=== PATIENT | male | born 1950 | race Caucasian/White ===

== ENCOUNTER 2018-06-24 10:04 | Inpatient (IN) | payer MEDICARE, OTHER | END 2018-06-28 15:32 | disposition home or self-care (01) | LOC: ER 10:04 → SUR 3N 06-26 12:00 → ED HOLD 12:40 → SUR 3N 22:10 | DX: J96.01 Acute respiratory failure with hypoxia (principal); I50.31 Acute diastolic (congestive) heart failure; J44.1 Chronic obstructive pulmonary disease with (acute) exacerbation; N17.9 Acute kidney failure, unspecified; J96.02 Acute respiratory failure with hypercapnia; G89.4 Chronic pain syndrome; E11.21 Type 2 diabetes mellitus with diabetic nephropathy; E11.42 Type 2 diabetes mellitus with diabetic polyneuropathy; E09.65 Drug or chemical induced diabetes mellitus with hyperglycemia ==

== ENCOUNTER 2018-12-30 11:05 | Day surgery (SDC) | payer OTHER ==
[2018-12-30] VITALS (12 sets, daily range): BP systolic 123–156; BP diastolic 61–84
[~2018-12-30] VITALS: Ht 182.9 cm; Wt 108.3 kg
[~2018-12-30 11:05] MED LIST: AMIT-1 PO; ASPI-1265 PO; CHOL10008 PO; DABI150C PO; FERR325T32 PO; FURO40TA4 PO; GABA-532 PO; LAMO150T6 PO; LOSA25TA41 PO; MAGN400T28 PO; OMEG1CAP2 PO; OMEP20TA5 PO; POTA10TA15 PO; PRAV20TA PO; ROPI0.5T PO; VERA120T2 PO; VITA-268 PO
[2018-12-30] MEDS ORDERED: FLEC100T2 PO (11:34)
[2018-12-30] MEDS ORDERED: ATOR20TA PO (11:34)
[2018-12-30] MEDS ORDERED: VERA120C2 PO (11:34)
[2018-12-30] MEDS ORDERED: METF-438 PO (11:34)
[2018-12-30] MEDS ORDERED: normal saline 1,000 ML IV SCH (11:45)
[2018-12-30] MEDS ORDERED: diphenhydrAMINE 25mg capsule PO PRN (11:45)
[2018-12-30 11:59] LABS: BASOPHILS # (AUTO) 0.1 X10'3 (0-0.2); BASOPHILS % (AUTO) 0.6 % (0-1); EOSINOPHILS # (AUTO) 0.3 X10'3 (0-0.9); EOSINOPHILS % (AUTO) 2.9 % (0-6); HEMATOCRIT 43.1 % (42.0-52.0); HEMOGLOBIN 14.3 g/dl (14.0-17.9); LYMPHOCYTES # (AUTO) 1.4 X10'3 (1.1-4.8); LYMPHOCYTES % (AUTO) 15.8 % (21-51); MEAN CORPUSCULAR HEMOGLOBIN 29.6 PG (27.0-31.0); MEAN CORPUSCULAR HGB CONC 33.1 g/dL (33.0-36.5); MEAN CORPUSCULAR VOLUME 89.6 FL (78-98); MEAN PLATELET VOLUME 8.9 FL (7.4-10.4); MONOCYTES # (AUTO) 0.6 X10'3 (0-0.9); MONOCYTES % (AUTO) 6.1 % (2-12); NEUTROPHILS # (AUTO) 6.8 X10'3 (1.8-7.7); NEUTROPHILS % (AUTO) 74.6 % (42-75); PLATELET COUNT 238 X10'3 (140-440); RED BLOOD COUNT 4.81 X10'6 (4.70-6.10); RED CELL DISTRIBUTION WIDTH 14.5 % (11.5-14.5); WHITE BLOOD COUNT 9.1 X10'3 (4.5-11.0)
[2018-12-30 12:12] LABS: ALBUMIN 3.9 G/DL (3.4-5.0); ANION GAP 6 (8-16); BLOOD UREA NITROGEN 20 MG/DL (7-18); BUN/CREATININE RATIO 19.6 (5.4-32.0); CALCIUM 9.5 MG/DL (8.5-10.1); CHLORIDE 104 MMOL/L (99-107); CREATININE 1.02 MG/DL (0.60-1.10); GLUCOSE 90 MG/DL (70-104); MAGNESIUM 1.8 MG/DL (1.5-2.4); POTASSIUM 4.2 MMOL/L (3.5-5.1); SODIUM 142 MMOL/L (135-145); eGFR 73 ML/MIN
[2018-12-30] MEDS ORDERED: MIDAZolam 5mg/ml 2ml vial IV ONE (12:20)
[2018-12-30] MEDS ORDERED: fentaNYL/PF 50MCG/1 ML 2ML syringe IV ONE (12:20)
== END 2018-12-30 17:25 | disposition home or self-care (01) ==
LOC: SSTAY O 11:05
PROVIDERS: ATTEND Internal Medicine Cardiovascular Disease
DX: I48.91 Unspecified atrial fibrillation (principal); I11.0 Hypertensive heart disease with heart failure; I50.9 Heart failure, unspecified; E11.9 Type 2 diabetes mellitus without complications; E78.00 Pure hypercholesterolemia, unspecified; Z79.01 Long term (current) use of anticoagulants; Z79.82 Long term (current) use of aspirin; Z79.4 Long term (current) use of insulin; Z79.899 Other long term (current) drug therapy; Z87.891 Personal history of nicotine dependence; Z88.8 Allergy status to other drugs, medicaments and biological substances; Z98.890 Other specified postprocedural states
CPT/HCPCS: 36415; 80048; 83735; 85025; 85610; 92960; 93005; 94760; J2250; J3010; J7030

== ENCOUNTER 2019-01-31 07:52 | Day surgery (SDC) | payer OTHER ==
[2019-01-31] VITALS (14 sets, daily range): BP systolic 92–138; BP diastolic 34–65
[~2019-01-31] VITALS: Ht 182.9 cm; Wt 109.5 kg
[~2019-01-31 07:52] MED LIST changes: -ASPI-1265 PO; +ATOR20TA PO; +FLEC100T2 PO; -LAMO150T6 PO; +METF-438 PO; -PRAV20TA PO; +VERA120C2 PO
[2019-01-31] MEDS ORDERED: atropine 0.1mg/ml 10ml syringe ONE (08:00)
[2019-01-31] MEDS ORDERED: MIDAZolam 5mg/ml 2ml vial IV ONE (08:15)
[2019-01-31] MEDS ORDERED: fentaNYL/PF 50MCG/1 ML 2ML syringe IV ONE (08:15)
[2019-01-31] MEDS ORDERED: normal saline 1000ml 1,000 ML IV SCH (08:15)
[2019-01-31] MEDS ORDERED: INSU100C4 SQ (09:24)
[2019-01-31] MEDS ORDERED: ACET-2615 PO (09:24)
[2019-01-31] MEDS ORDERED: DOCU100C59 PO (09:24)
[2019-01-31] MEDS ORDERED: INSU100V9 SQ (09:24)
[2019-01-31] MEDS ORDERED: DICL100G15 TOP (09:24)
[2019-01-31] MEDS ORDERED: TIOT4MIS3 IH (09:24)
[2019-01-31] MEDS ORDERED: NITR0.4T48 SL (09:24)
[2019-01-31] MEDS ORDERED: atropine 0.1mg/ml 10ml syringe IV ONE (09:45)
--- NOTE | 2019-01-31 09:50 | NUR ---
Heart Rate down to 29 beats per minute. Atropine 0.6m iv given from the crash cart as ordered by Dr. Robison. Addendum: 01/31/19 at 1456 by Max Gregory RN Amended: Links added.
--- NOTE | 2019-01-31 09:53 | NUR ---
Atropine 0.4mg iv given as ordered by Dr. Robison. Addendum: 01/31/19 at 1456 by Max Gregory RN Amended: Links added.
[2019-01-31 11:56] LABS: BASOPHILS % (AUTO) 0.3 % (0-1); EOSINOPHILS # (AUTO) 0.2 X10'3 (0-0.9); EOSINOPHILS % (AUTO) 2.2 % (0-6); HEMOGLOBIN 12.7 g/dl (14.0-17.9); LYMPHOCYTES # (AUTO) 1.3 X10'3 (1.1-4.8); LYMPHOCYTES % (AUTO) 15.6 % (21-51); MEAN CORPUSCULAR HEMOGLOBIN 29.5 PG (27.0-31.0); MEAN CORPUSCULAR HGB CONC 33.3 g/dL (33.0-36.5); MEAN CORPUSCULAR VOLUME 88.6 FL (78-98); MEAN PLATELET VOLUME 9.5 FL (7.4-10.4); MONOCYTES # (AUTO) 0.4 X10'3 (0-0.9); MONOCYTES % (AUTO) 5.2 % (2-12); NEUTROPHILS # (AUTO) 6.3 X10'3 (1.8-7.7); NEUTROPHILS % (AUTO) 76.7 % (42-75); PLATELET COUNT 196 X10'3 (140-440); RED BLOOD COUNT 4.29 X10'6 (4.70-6.10); WHITE BLOOD COUNT 8.2 X10'3 (4.5-11.0)
[2019-01-31 12:02] LABS: ALBUMIN 3.5 G/DL (3.4-5.0); ANION GAP 7 (8-16); BLOOD UREA NITROGEN 22 MG/DL (7-18); BUN/CREATININE RATIO 20.2 (5.4-32.0); CALCIUM 8.5 MG/DL (8.5-10.1); CHLORIDE 106 MMOL/L (99-107); CREATININE 1.09 MG/DL (0.60-1.10); GLUCOSE 64 MG/DL (70-104); MAGNESIUM 1.6 MG/DL (1.5-2.4); POTASSIUM 4.2 MMOL/L (3.5-5.1); SODIUM 142 MMOL/L (135-145); TOTAL CARBON DIOXIDE 29.2 MMOL/L (24-32); eGFR 67 ML/MIN
== END 2019-01-31 12:07 | disposition home or self-care (01) ==
LOC: SSTAY O 07:52
PROVIDERS: ATTEND Internal Medicine Cardiovascular Disease
DX: I48.19 Other persistent atrial fibrillation (principal); I11.0 Hypertensive heart disease with heart failure; I50.9 Heart failure, unspecified; E11.9 Type 2 diabetes mellitus without complications; E78.00 Pure hypercholesterolemia, unspecified; Z79.82 Long term (current) use of aspirin; Z79.4 Long term (current) use of insulin; Z79.899 Other long term (current) drug therapy; Z79.01 Long term (current) use of anticoagulants; Z87.891 Personal history of nicotine dependence; Z88.8 Allergy status to other drugs, medicaments and biological substances
CPT/HCPCS: 36415; 80048; 83735; 85025; 85610; 92960; J0461; J2250; J3010; J7030; 93005

== ENCOUNTER 2019-11-07 12:11 | Emergency (ER) | payer OTHER, MEDICARE ==
[~2019-11-07] VITALS: Ht 182.9 cm; Wt 105.0 kg
[~2019-11-07 12:11] MED LIST changes: +ACET-2615 PO; +DICL100G15 TOP; +DOCU100C59 PO; +INSU100C4 SQ; +INSU100V9 SQ; +NITR0.4T48 SL; +TIOT4MIS3 IH; -VERA120C2 PO
--- NOTE | 2019-11-07 13:22 | NUR ---
awaiting ed provider.
[2019-11-07] MEDS ORDERED: HYDROcodone/acetaminophen 10/325mg tab PO ONE (14:45)
--- NOTE | 2019-11-07 15:46 | NUR ---
called wound care clinic per MD qand there was noone avaliable to come evaluate pt. they said to give pt there number and they can get him in on sunday.
[2019-11-07] MEDS ORDERED: silver sulfadiazine cream 400gm jar TP SCH (16:10)
[2019-11-07 16:22] VITALS: BP 172/66
[2019-11-07] MEDS ORDERED: HYDR-4353 PO (16:51)
[2019-11-07] MEDS ORDERED: CEPH250T PO (16:51)
[2019-11-07] MEDS ORDERED: cephalexin 250mg capsule PO ONE (16:55)
== END 2019-11-07 17:07 | disposition home or self-care (01) ==
LOC: ER 12:11
DX: T25.222A Burn of second degree of left foot, initial encounter (principal); T25.221A Burn of second degree of right foot, initial encounter; L03.116 Cellulitis of left lower limb; L03.115 Cellulitis of right lower limb; I48.91 Unspecified atrial fibrillation; I50.9 Heart failure, unspecified; I11.0 Hypertensive heart disease with heart failure; J44.9 Chronic obstructive pulmonary disease, unspecified; Z88.8 Allergy status to other drugs, medicaments and biological substances; Z79.4 Long term (current) use of insulin; Z79.899 Other long term (current) drug therapy; X58.XXXA Exposure to other specified factors, initial encounter; Y93.89 Activity, other specified; Y92.89 Other specified places as the place of occurrence of the external cause; Y99.8 Other external cause status
CPT/HCPCS: 16020; 99285

== ENCOUNTER 2019-11-10 10:40 | Outpatient (CLI) | payer MEDICARE, OTHER ==
[~2019-11-10 10:40] MED LIST changes: +CEPH250T PO; +HYDR-4353 PO
[2019-11-10] MEDS ORDERED: silver sulfadiazine cream 50gm TP ONE (12:51)
== END 2019-11-10 13:06 | disposition home or self-care (01) ==
LOC: WOUND CARE 10:40 → EDSTATUS 10:40 → WOUND CARE 13:06
PROVIDERS: ATTEND Nurse Practitioner Family
DX: E11.621 Type 2 diabetes mellitus with foot ulcer (principal); L97.512 Non-pressure chronic ulcer of other part of right foot with fat layer exposed; L97.522 Non-pressure chronic ulcer of other part of left foot with fat layer exposed; T25.221A Burn of second degree of right foot, initial encounter; T25.222A Burn of second degree of left foot, initial encounter; J44.9 Chronic obstructive pulmonary disease, unspecified; E11.40 Type 2 diabetes mellitus with diabetic neuropathy, unspecified; E11.65 Type 2 diabetes mellitus with hyperglycemia; I11.0 Hypertensive heart disease with heart failure; I50.9 Heart failure, unspecified; I25.10 Atherosclerotic heart disease of native coronary artery without angina pectoris; E78.5 Hyperlipidemia, unspecified; I48.91 Unspecified atrial fibrillation; Z96.698 Presence of other orthopedic joint implants; Z79.899 Other long term (current) drug therapy; Z79.4 Long term (current) use of insulin; Z87.891 Personal history of nicotine dependence; X08.8XXA Exposure to other specified smoke, fire and flames, initial encounter; Y93.89 Activity, other specified; Y92.89 Other specified places as the place of occurrence of the external cause; Y99.8 Other external cause status
CPT/HCPCS: 36416; 82948; G0463

== ENCOUNTER 2024-11-24 14:10 | Inpatient (IN) | payer OTHER, MEDICARE ==
[~2024-11-24] VITALS: Ht 182.9 cm; Wt 96.2 kg
[~2024-11-24 14:10] MED LIST changes: -CEPH250T PO; -HYDR-4353 PO; -MAGN400T28 PO; +MAGN400T56 PO; +OMEP20TA43 PO; -OMEP20TA5 PO
--- NOTE | 2024-11-24 14:37 | ELECTROCARDIOGRAPH REPORT ---
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 Parmjit Peña Measurements Intervals [place] Rate: 41 P: 0 MO: 0 QRS: 62 QRSD: 157 T: 34 QT: 504 QTc: 417 Interpretive Statements Junctional rhythm Right bundle branch block Baseline wander in lead(s) II,aVR,aVF Electronically Signed On 12-03-2024 18:47:[address] Parmjit Peña Please click the below link to view image of tracing.
--- NOTE | 2024-11-24 14:47 | RADIOLOGY REPORT ---
CHEST RADIOGRAPH Indication: CP Technique: Single frontal view of the chest was obtained Comparison: None FINDINGS: Lines and Tubes: None Lungs: No focal consolidation. Pleura: No effusion. No pneumothorax. Cardiomediastinal contours: Unremarkable Bones: Nondisplaced right lateral rib fracture IMPRESSION: No acute cardiopulmonary disease. No pneumothorax. Nondisplaced right lateral rib fracture involving right lateral ribs number 7
[2024-11-24 14:51] LABS: MEAN PLATELET VOLUME 8.6 FL (7.4-10.4); RED CELL DISTRIBUTION WIDTH 15.9 % (11.5-14.5)
[2024-11-24 15:14] LABS: BANDS% (MANUAL) 3.0 % (0-10); EOSINOPHILS % (MANUAL) 2.0 % (0-6); METAMYLEOCYTES% (MANUAL) 3.0 % (0-0)
[2024-11-24 15:15] LABS: LYMPHOCYTES % (MANUAL) 8.0 % (21-51); MONOCYTES % (MANUAL) 4.0 % (2-12); NEUTROPHILS % (MANUAL) 80.0 % (42-75); PLATELET ESTIMATE NORMAL
[2024-11-24 15:19] LABS: CREATININE 1.67 MG/DL (0.60-1.10); PRO BRAIN NATRIURETIC PEPTIDE 929 PG/ML (0-125); TOTAL CARBON DIOXIDE 23.1 MMOL/L (24-32); eCRCL 43 ML/MIN; eGFR 40 ML/MIN
--- NOTE | 2024-11-24 16:44 | Physician Documentation ---
History of Present Illness General Chief Complaint: Shortness of Breath Stated Complaint: LOW HEART RATE/DIZZINESS Time Seen by MD: 16:26 Primary Medical Doctor: dc History of Present Illness Initial Comments The patient is a 74-year-old man with a history of prior alcohol abuse (he reports that his last drink was 3-4 years ago), atrial fibrillation (he is not on any blood thinners), chronic bradycardia (which has been asymptomatic until just recently), type 2 diabetes, hypertension and low back pain who has been generally weak, short of breath and orthostatic since , four days ago. He went to the [place] [facility] this morning for these symptoms and they referred him here with worsening bradycardia. Medication Reconciliation Allergies: Coded Allergies: lorazepam (Unverified Allergy, Unknown, 11/07/19) Scheduled Acetaminophen (Tylenol Extra Strength), 500 MG PO QID, (Reported) Amitriptyline Hcl (Amitriptyline Hcl), 12.5 MG PO HS, (Reported) Atorvastatin Calcium* (Lipitor*), 1 TABLET PO HS, (Reported) Cholecalciferol (Vitamin D3), 1,000 UNIT PO DAILY, (Reported) Dabigatran (PRADAXA capsule), 1 CAP PO BID, (Reported) Diclofenac Sodium (Voltaren), 2 GM TOP Q6H, (Reported) Docusate Sodium (Col-Rite), 1 CAPSULE PO DAILY, (Reported) Ferrous Sulfate (Ferrous Sulfate), 1 TAB PO DAILY, (Reported) Flecainide Acetate (Flecainide Acetate), 1 TAB PO Q12H, (Reported) Furosemide (Furosemide), 1 TAB PO DAILY, (Reported) Gabapentin (Gabapentin), 1 CAP PO TID, (Reported) Insulin Aspart (Novolog), 100 UNIT SQ CC, (Reported) Insulin Glargine,Hum.rec.anlog (Lantus), SQ BID, (Reported) Losartan Potassium (Losartan Potassium), 1 TAB PO BID, (Reported) Magnesium Oxide (Magnesium Oxide), 1 TAB PO Q12H, (Reported) Metformin HCl (Metformin HCl), 1 TAB PO Q12H, (Reported) [place]-3 Fatty Acids/Fish Oil (Fish Oil 1,000 mg Capsule), 1 CAP PO DAILY, (Reported) Omeprazole (Omeprazole), 40 MG PO DAILY, (Reported) Potassium Chloride (Potassium Chloride), 1 TAB PO DAILY, (Reported) Ropinirole Hcl (Requip), 1 TAB PO HS, (Reported) Tiotropium Br/Olodaterol HCl (Stiolto Respimat Inhal [place]), 2 PUFFS IH DAILY, (Reported) Verapamil Hcl SR* (Calan SR*), 1 TAB PO DAILY, (Reported) Vitamin B Complex (B Complex), 1 EACH PO DAILY, (Reported) Scheduled PRN Nitroglycerin (Nitroglycerin), 0.4 MG SL PRN PRN for chest pain, (Reported) Past Medical History Past Medical History: Atrial Fibrillation, Congestive Heart Failure, Hype rtension, COPD Past Surgical History: noncontributory Alcohol Use: None Drug Use: none Lives with: Spouse Lives In: Home Occupation: retired Review of Systems ROS Constitutional: Denies chills, fatigue, fever, weight gain or weight loss. HEENT: Denies hearing loss, sinus pressure or visual changes. Respiratory: Dyspnea on exertion. Cardiovascular: Worsening pedal edema and bradycardia. Gastrointestinal: Denies abdominal pain, blood in stool, constipation, agustín rrhea, heartburn, loss of appetite, nausea or vomiting. Genitourinary: Denies painful urination (dysuria), excessive amount of urine (polyuria) or urinary frequency. Metabolic/Endocrine: Denies cold intolerance, heat intolerance, excessive thirst (polydipsia) or excessive hunger (polyphagia). Neurological: Denies dizziness, extremity numbness, extremity weakness, headaches, seizures or tremors. Psychiatric: Denies anxiety or depression. Integumentary: Denies breast discharge, breast lump, hives, mole change(s), rash or skin lesion. Musculoskeletal: Denies back pain, joint pain, joint swelling or neck pain. Hematologic: Denies easily bleeding, easily bruises, lymphedema or issues with blood clots. Immunologic: Denies food allergies or seasonal allergies. Physical Exam Physical Exam Vital Signs: Temperature: 98.2, Source: Temporal, Heart Rate: 42, Respiratory Rate: 12, BP: 135/61, Pulse Oximetry: 98, Weight: 94.000 Oxygen Flow Rate: 0 Physical Exam Physical Exam Vitals and nursing note reviewed. Constitutional: General: Patient is awake, alert, oriented x 4 in no acute distress and well appearing. Speech is clear and lucid. Appearance: Normal appearance. Patient is not ill-appearing, toxic-appearing or diaphoretic. HENT: Head: Normocephalic and atraumatic. Mouth/Throat: Mouth: Mucous membranes are moist. Pharynx: Oropharynx is clear. Eyes: General: No scleral icterus. Extraocular Movements: Extraocular movements intact. Pupils: Pupils are equal, round, and reactive to light. Neck: Supple, no Kernig or Brudzinski sign. Cardiovascular: Rate and Rhythm: Bradycardic and regular rhythm. Heart sounds: No murmur heard. Pulmonary: Effort: No respiratory distress. Breath sounds: No wheezing, rhonchi or rales. Abdominal: General: There is no distension. Palpations: There is no fluid wave, hepatomegaly or mass. Tenderness: There is no abdominal tenderness. There is no guarding. Musculoskeletal: General: No swelling or deformity. Skin: Coloration: Skin is not jaundiced. Findings: No erythema or rash. Neurological: Mental Status: Patient is alert. Progress Results/Orders Results/Orders Orders - CORI ARAGON MD Chest,Single View (11/24/24 14:30) Monitor (11/24/24 14:30) Saline Lock (11/24/24 14:30) Oxygen (11/24/24 14:30) Hs Troponin I W Calculations (11/24/24 16:30) Hs Troponin I W Calculations (11/24/24 17:30) Page Hospitalist (11/24/24 16:58) Completed Orders - CORI ARAGON MD Chest,Single View (11/24/24 14:30) Cbc/Diff (11/24/24 14:30) BMP (11/24/24 14:30) PBNP (11/24/24 14:30) Electrocardiogram (11/24/24 14:30) Hs Troponin I W Calculations (11/24/24 14:30) Man Diff (11/24/24 14:41) Vital Signs 11/24/24 14:31 Temp 98.2 Pulse 42 Resp 12 B/P (MAP) 135/61 Pulse Ox 98 O2 Flow Rate 0 Laboratory Tests Test 11/24/24 14:41 11/24/24 16:40 White Blood Count 9.7 Red Blood Count 3.87 L Hemoglobin 11.2 L Hematocrit 33.0 L Mean Corpuscular Volume 85.3 Mean Corpuscular Hemoglobin 28.9 Mean Corpuscular Hemoglobin Concent 33.9 Red Cell Distribution Width 15.9 H Platelet Count 226 Mean Platelet Volume 8.6 Neutrophils (%) (Auto) 78.3 H Lymphocytes (%) (Auto) 12.6 L Monocytes (%) (Auto) 6.8 Eosinophils (%) (Auto) 1.9 Basophils (%) (Auto) 0.4 Neutrophils # (Auto) 7.6 Lymphocytes # (Auto) 1.2 Monocytes # (Auto) 0.7 Eosinophils # (Auto) 0.2 Basophils # (Auto) 0.0 CBC Comment Differential Total Cells Counted 100 Neutrophils % (Manual) 80.0 H Band Neutrophils % 3.0 Lymphocytes % (Manual) 8.0 L Monocytes % (Manual) 4.0 Eosinophils % (Manual) 2.0 Metamyelocytes % 3.0 H Platelet Estimate Normal Red Blood Cell Morphology Normal Basophilic Stippling Sodium Level 137 Potassium Level 4.4 Chloride Level 101 Carbon Dioxide Level 23.1 L Anion Gap 13 Blood Urea Nitrogen 76 H Creatinine 1.67 H Estimated GFR/1.73 m2 40 BUN/Creatinine Ratio 45.5 H Glucose Level 149 H Calcium Level 8.9 Troponin I High Sensitivity 77 *H Pro-B-Type Natriuretic Peptide 929 H Albumin 3.6 Chemistry Comments Medical Decision Making Findings EKG medically necessary in the evaluation of bradycardia/shortness of breath and interpreted by me at the time of patient evaluation. Rhythm is junctional rhythm with a rate of 41, right bundle branch block. Impression: Abnormal EKG. The patient's troponin is 77 and he is bradycardic. He is asymptomatic on the gurney but become short of breath with even mild exertion. His symptoms may be exacerbated by his taking ropinirole for restless legs syndrome. He will need to be admitted and evaluated for pacemaker. Departure Disposition: ADMITTED INPATIENT Admitted to Inpatient Unit: to hospitalist Impression: Primary Impression: Symptomatic bradycardia Condition: Stable Referrals: NO PRIMARY CARE PROVIDER (PCP) Signature Scribe Signature: . Attestation: CORI CARRILLO MD Nov 24, 2024 16:44
[2024-11-24] MEDS: PERFLUTREN PROTEIN-A MICROSPHR (Optison) 0.22 MG/ML 3ML VIAL IV ONE (19:45)
[2024-11-24] MEDS ORDERED: magnesium Cl slow-release 64mg tablet PO PRN (19:45)
[2024-11-24] MEDS ORDERED: magnesium sulf-water 4G/100mL 100 ML IV PRN (19:45)
[2024-11-24] MEDS ORDERED: magnesium sulf-water 2g/50mL 50 ML IV PRN (19:45)
[2024-11-24] MEDS ORDERED: ondansetron/PF 4mg/2ml inj IV PRN (19:45)
[2024-11-24] MEDS ORDERED: magnesium hydroxide 30ml (MOM) UD suspension PO PRN (19:45)
[2024-11-24] MEDS ORDERED: potassium Cl 40MEQ/1/2NS 520ml 520 ML IV PRN (19:45)
[2024-11-24] MEDS ORDERED: potassium Cl 20 mEq SR tablet PO PRN ×2 (19:45)
[2024-11-24] MEDS ORDERED: mag hydrox/Alum hydrox/simeth 30ml oral suspension PO PRN (19:45)
--- NOTE | 2024-11-24 19:51 | HISTORY AND PHYSICAL-Residence ---
History & Physical Providers to CC Resident Creating Document: PEDRO LUIS RUFFIN, MELL ~ History of Present Illness Primary Medical Doctor: wy Reason for Admit\Complaint: Symptomatic bradycardia History of Present Illness A 74-year-old with a past medical history notable for chronic atrial fibrillation with longstanding bradycardia, hypertension, COPD, type 2 diabetes mellitus, obstructive/complex sleep apnea, and alcohol use disorder who presents with progressive dyspnea and new symptomatic bradycardia. The patient reports progressive shortness of breath, most pronounced with ambulation, developing over days to weeks and felt to be worse over the past 12 days. He also notes weight gain of approximately 34 pounds over the past week, with the majority occurring in the last 12 days. In addition, he describes increasing lightheadedness and dizziness without loss of consciousness. He denies syncope, chest pain, palpitations, diaphoresis, syncope, focal weakness, visual changes, nausea, vomiting, fever, or infectious symptoms. He reports he is on a water pill at home. Of note, his baseline resting heart rate historically averaged in the 50s with occasional dips into the high 30s40s and he was previously evaluated for possible pacemaker placement but was not symptomatic at that time. Over the last 24 hours in clinic his heart rate was persistently in the mid-30s and he became symptomatic with dizziness and decreased exercise tolerance. In clinic on 11/24/2024 at 10:22, vital signs were notable for pulse 38 bpm, BP 139/64 mmHg, RR 16, T 97.9F, SpO2 94% on room air. Objective testing and labs obtained in clinic show an EKG with junctional rhythm and right bundle branch block, ventricular rate ~41 bpm with RR interval 1463 ms. Laboratory evaluation demonstrated an elevated BNP, and a mildly elevated high-sensitivity troponin I (53, per lab report). Serum magnesium 2.6 mg/dL. Given symptomatic bradycardia, the patient received atropine 0.5 mg in clinic and IV furosemide 40 mg for concern for volume overload/heart failure. Because his bradycardia became symptomatic and his EKG and labs were concerning, EMS was called and he was transferred to [facility] today. Allergies: Coded Allergies: lorazepam (Unverified Allergy, Unknown, 11/07/19) Home Medications Home Medications Active Reported Voltaren (Diclofenac Sodium) 100 Gm Gel..gram. 2 Gm TOP Q6H Nitroglycerin 0.4 Mg Tab.subl 0.4 Mg SL PRN PRN Lantus (Insulin Glargine,Hum.rec.anlog) 100 Unit/1 Ml Vial SQ BID Novolog (Insulin Aspart) 100 Unit/1 Ml Cartridge 100 Unit SQ CC Tylenol Extra Strength (Acetaminophen) 500 Mg Tablet 500 Mg PO QID Stiolto Respimat Inhal [place] (Tiotropium Br/Olodaterol HCl) 4 Gm Mist.inhal 2 Puffs IH DAILY Col-Rite (Docusate Sodium) 100 Mg Capsule 1 Capsule PO DAILY Lipitor* (Atorvastatin Calcium) 20 Mg Tablet 1 Tablet PO HS Flecainide Acetate 100 Mg Tablet 1 Tab PO Q12H 30 Days Metformin HCl 1,000 Mg Tablet 1 Tab PO Q12H 30 Days Losartan Potassium 25 Mg Tablet 1 Tab PO BID 30 Days Requip (Ropinirole Hcl) 0.5 Mg Tablet 1 Tab PO HS 30 Days Omeprazole 20 Mg Tablet.dr 40 Mg PO DAILY 30 Days Magnesium Oxide 400 Mg Tablet 1 Tab PO Q12H 30 Days Gabapentin 300 Mg Capsule 1 Cap PO TID Vitamin D3 (Cholecalciferol) 1,000 Unit Capsule 1,000 Unit PO DAILY B Complex (Vitamin B Complex) 1 Each Tablet 1 Each PO DAILY Potassium Chloride 10 Meq Tablet.sa 1 Tab PO DAILY 30 Days Ferrous Sulfate 325 Mg Tablet 1 Tab PO DAILY 30 Days Calan SR* (Verapamil HCl) 120 Mg Tablet.sa 1 Tab PO DAILY PRADAXA capsule (Dabigatran) 150 Mg Capsule 1 Cap PO BID Fish Oil 1,000 mg Capsule ([place]-3 Fatty Acids/Fish Oil) 1 Each Capsule 1 Cap PO DAILY Furosemide 40 Mg Tablet 1 Tab PO DAILY 30 Days Amitriptyline Hcl (Amitriptyline HCl) 25 Mg Tablet 12.5 Mg PO HS Past Medical History Past Medical History Depression Hypertension CAD Hyperlipidemia Possible congestive heart failure AFib Diabetes mellitus Lower back pain COPD Alcohol use Past Surgical History Surgical History Comment None Past Social History Social History Comment Smoked of about a pack of cigarettes for at least 30 years, quit 12 years ago Occasional alcohol use Denies illicit use of drugs Alcohol Use: None Drug Use: None Lives with: Spouse Lives In: Home Occupation: retired ROS ROS Constitutional: No fever, chills, dizziness, weight gain or loss Eyes: No pain, erythema, discharge, blurring of vision ENT: No sore throat, epistaxis, tinnitus Cardiovascular: reports Shortness of breath. Chest pressure, chest discomfort, palpitations, syncope, lower extremity edema, paroxysmal nocturnal dyspnea Respiratory: Shortness of breath and cough present, No hemoptysis Gastrointestinal: Normal appetite. No nausea, vomiting, diarrhea, constipation, hematemesis, abdominal pain, bloating, melena or fresh blood Musculoskeletal: No pedal edema Integumentary: No change in skin, hair, nails. No swelling, bruising, abrasions Neurologic: No headache, neck pain, numbness or tingling of the extremities, weakness Psychiatric: No delusions, depression, loss of interest in normal activity or change in sleep pattern, hallucinations, suicidal ideations Endocrine: No fatigue, weakness, polydipsia, polyuria, change in appetite, heat or cold intolerance, sweating, dry skin Hematological: No bleeding, petechiae, bruising Allergies: No asthma or urticaria Exam Vitals: Vital Signs Date Time Temp Pulse Resp B/P (MAP) Pulse Ox O2 Delivery O2 Flow Rate FiO2 11/24/24 17:16 41 126/55 (78) 95 11/24/24 16:30 16 11/24/24 14:31 98.2 0 General: Awake , alert, and oriented x4, resting comfortably in the bed, in no acute distress HEENT: Atraumatic, normocephalic, EOMI, anicteric sclera ; pink conjunctiva Neck: Trachea midline. Supple, full range of motion, no JVD Cardiac: Irregular rhythm, irregular rate with no murmurs all over the precordium. Bradycardia Respiratory: Equal breath sounds bilaterally, no tachypnea, no wheezing ,rub or rales, Chest wall is symmetric and without deformity. Gastrointestinal: Abdomen symmetric, non-distended, soft, non-tender, normal bowel sounds x4 quadrant, normoactive, no hepatosplenomegaly Musculoskeletal: No pedal edema, no cyanosis Neurological: Speech is clear, alert, and oriented x 4. No motor or sensory deficit, deep tendon reflexes normal, cerebellar intact. Cranial nerves II-XII intact. Skin: Warm and dry Diagnostic Data Last Recorded Lab Results: 11/24/24 1441 11/24/24 1441 Advance Care Planning Advanced Care plannin - 30 Minutes Additional Plan 1.Symptomatic Bradycardia Junctional Rhythm with RBBB Patient now symptomatic (dizziness, exertional intolerance) with HR in 30s40s Previously evaluated for pacemaker; now meets criteria given symptoms Plan: Admit to telemetry for continuous monitoring Cardiology consult in a.m. evaluate for permanent pacemaker Atropine PRN for symptomatic episodes Place pacer pads at bedside Hold AV nodalblocking agents (clonidine, flecainide, we will also consider stopping amlodipine if BP allows) 2.Acute Decompensated Heart Failure (likely HFpEF, given HTN, AF history) Symptoms: dyspnea, weight gain, elevated BNP No LE edema but fluid retention likely Plan Initiated IV loop diuretic (Lasix 40 mg IV daily, we shall titrate to response) Strict I/O, daily weights, monitor renal function and electrolytes Repeat echocardiogram ordered Fluid restricted diet 3.Type 2 Diabetes Mellitus On insulin aspart 70/30, semaglutide. UA with glucosuria. Plan: A1c ordered We will initiate insulin regimen with correctional/sliding scale inpatient based on blood sugars tomorrow Sugars to be maintained between 140-180 mg per day Hold semaglutide during admission Monitor FS glucose QAC & HS 4.Atrial Fibrillation (chronic, rate controlled due to bradycardia) Benitez Vasc score 4 On dabigatran 150 mg BID for anticoagulation. Plan: Please hold dabigatran in view of possible pacemaker placement No need for additional rate control (bradycardic) Reassess anticoagulation if pacemaker implanted 5.Hypertension Meds: amlodipine, losartan, chlorthalidone, clonidine BP stable on admission Plan: Continue losartan Continue amlodipine if SBP >110 Continue chlorthalidone if electrolytes stable after med rec Hold clonidine (risk of worsening bradycardia) 6.COPD On tiotropium/olodaterol inhaler and albuterol PRN. Stable, no acute exacerbation. Plan: Continue home inhalers Albuterol PRN 7. HARMAN: Most likely prerenal Creatinine 1.67, under monitoring CMP Avoid nephrotoxic agents 8.Other Chronic Issues Type 2 diabetes mellitus: Monitor A1c and blood sugar glucose levels Hyperlipidemia continue atorvastatin. Chronic pain/neuropathy continue hydrocodone/acetaminophen PRN, amitriptyline, lidocaine patch; monitor sedation. Mood disorder continue bupropion, amitriptyline. MADHAVI continue CPAP if available inpatient. Medication Adjustments Continue: losartan, amlodipine (if BP stable), chlorthalidone (with monitoring), atorvastatin, aspirin, insulin, bupropion, amitriptyline, inhalers, pain regimen, vitamins/supplements. Hold: clonidine (risk of worsening bradycardia), semaglutide (hold inpatient), dabigatran, PRN: albuterol, hydrocodone/acetaminophen, atropine for severe bradycardia. Disposition: Telemetry admission with cardiology evaluation for pacemaker. Monitor closely for worsening heart failure and symptomatic bradycardia. Pending med rec Pedro Luis Ruffin MD Internal Medicine Resident, PGY-2 Date of Service: Nov 24, 2024 Billing Provider: MARGRET HIDALGO MD Common Visit Codes: 47491-LATPDJY INP/OBS CARE (HIGH) Secondary Visit Codes: 54426-ODGNLCRM CARE PLAN 30 MINUTES PEDRO LUIS RUFFIN, RES Nov 24, 2024 19:51 MARGRET HIDALGO MD Nov 26, 2024 20:12
[2024-11-24] MEDS: docusate sod 100mg capsule PO SCH (20:00)
[2024-11-24] MEDS ORDERED: AMLO10TA53 PO (20:09)
[2024-11-24] MEDS ORDERED: ASPI81TA52 PO (20:10)
[2024-11-24] MEDS ORDERED: ALBU8HFA INH (20:26)
[2024-11-24] MEDS ORDERED: LOSA-415 PO (20:26)
[2024-11-24] MEDS ORDERED: LIDO1ADH67 TOP (20:26)
[2024-11-24] MEDS ORDERED: ROPI0.5T37 PO (20:26)
[2024-11-24] MEDS ORDERED: SEMA1PEN3 SUBCUT (20:26)
[2024-11-24] MEDS ORDERED: HYDR71PA TP (20:26)
[2024-11-24] MEDS ORDERED: NOVLG SQ (20:26)
[2024-11-24] MEDS ORDERED: KEN0.1O TOP (20:26)
[2024-11-24] MEDS ORDERED: HYDR-3964 PO (20:26)
[2024-11-24] MEDS ORDERED: CHLO25TA10 PO (20:26)
[2024-11-24] MEDS ORDERED: BUPR150T8 PO (20:26)
[2024-11-24] MEDS ORDERED: CLON0.5T2 PO (20:29)
[2024-11-24] MEDS: K and/or MAG REPLACEMENT MC SCH (20:34)
[2024-11-24 21:23] LABS: LEUKOCYTE ESTERASE ,URINE NEGATIVE (Neg); NITRITES, URINE NEGATIVE (Neg); OCCULT BLOOD,URINE NEGATIVE (Neg)
[2024-11-24 21:34] LABS: UA COLLECTION TYPE CLN CATCH MIDSTREAM
[2024-11-24] MEDS: heparin, porcine 5000 units/ml vial SQ SCH (21:53)
[2024-11-24 22:13] VITALS: BP 158/41; PULSE 51; RESP 15; TEMP 97.2; O2SAT 92
[2024-11-24 22:30] VITALS: RESP 14; O2SAT 92
[2024-11-25] VITALS (9 sets, daily range): BP systolic 94–160; BP diastolic 44–75; PULSE 35–46; RESP 13–22; TEMP 97.2–98.2; O2SAT 93–98
[2024-11-25] MEDS: HYDROcodone/acetaminophen 5mg/325mg tablet PO ONE ×2 (01:37→11:03)
[2024-11-25] MEDS ORDERED: DEXTROSE 15 GM of carb/4 tabs (each vial/BOTTLE has 4 tablets) PO PRN ×2 (03:25)
[2024-11-25] MEDS ORDERED: dextrose 50%-water 50ml dispensing syringe IV PRN ×2 (03:25)
[2024-11-25] MEDS ORDERED: glucagon, human recombinant 1mg kit SUBCUT PRN (03:25)
[2024-11-25 05:14] LABS: MEAN PLATELET VOLUME 8.5 FL (7.4-10.4); RED CELL DISTRIBUTION WIDTH 16.3 % (11.5-14.5)
[2024-11-25 05:38] LABS: CHOL/HDL RATIO 3.7 (0.00-4.99); CREATININE 1.92 MG/DL (0.60-1.10); LDL CHOLESTEROL 50 MG/DL (50-100); TOTAL CARBON DIOXIDE 21.8 MMOL/L (24-32); eCRCL 37 ML/MIN; eGFR 34 ML/MIN
[2024-11-25] MEDS: furosemide 10 MG/1 ML 10ml inj IV SCH (07:43)
--- NOTE | 2024-11-25 11:17 | CONSULTATION REPORT - RESIDENT ---
Consult Providers to CC Resident Creating Document: TEO TOMCRIS Vasquez RES History of Present Illness Primary Medical Doctor: [facility] Dr. Daugherty Reason for Admit\Complaint: Symptomatic bradycardia History of Present Illness 74-year-old male patient came to the hospital with chief complaint of shortness of breath. The patient reports that he has been experiencing some shortness of breath mostly pronounced with ambulation, as per patient it has been developing over days to weeks but exacerbated in the last two days. In addition to these symptom the patient also states lightheadedness and dizziness which lasted approximately the same time. He denies episodes of losing consciousness, chest pain, palpitations, diaphoresis, syncope, focal weakness, visual changes, nausea, vomiting, fever. As per patient his baseline heart rate has been around 50s beats per minute with a occasional drops to 30s or 40s, he states that he has been evaluated for possible pacemaker placement but was not symptomatic at that time. During the last 48 hours the patient has been having episodes of heart rate around 30s, during the last night her heart rate came down until 26 bpm, reason for which we were consulted. Allergies: Coded Allergies: lorazepam (Unverified Allergy, Unknown, 11/07/19) Home Medications Home Medications Active Reported Klonopin (Clonazepam) 0.5 Mg Tablet 0.2 Tab PO DAILY PRN 30 Days Kenalog 0.1% Crm* (Triamcinolone Acetonide) 1 Applic Tube 1 Applic TOP Q12H 10 Days Ozempic (Semaglutide) 1 Mg/0.75 Ml (4 Mg/3 Ml) Pen.injctr 1 Mg SUBCUT Q7D 30 Days Ropinirole Hcl 0.5 Mg Tablet 1 Tab PO HS 30 Days Cozaar* (Losartan Potassium) 25 Mg Tablet 4 Tab PO DAILY 30 Days Lidocaine Pain Relief (Lidocaine) 4 % Adh..patch 1 Patch TOP DAILY 30 Days Novolog (Insulin Aspart) 100 Unit/Ml (3 Ml) Insuln.pen 100 Unit SQ Triad (Hydrophilic Cream) 71 Gm Paste..gm. 71 Gm TP Hydrocodon-Acetaminophen 5-325 (Hydrocodone Bit/Acetaminophen) 5 Mg-325 Mg Tablet 1 Tab PO Q4H PRN 5 Days Chlorthalidone 25 Mg Tablet 1 Tab PO BID 30 Days Wellbutrin SR* (Bupropion HCl) 150 Mg Tablet.sa 1 Tab PO Q12H 30 Days LOOK-ALIKE SOUND-ALIKE DRUG buSPIRone & buPROPion Pro-Air Inhaler (Albuterol) 8.5 Gm Inhaler 2 Puffs INH Q6H PRN 30 Days Aspirin EC (Aspirin) 81 Mg Tablet.dr 1 Tab PO DAILY 30 Days Amlodipine Besylate 10 Mg Tablet 1 Tab PO QPM 30 Days Voltaren (Diclofenac Sodium) 100 Gm Gel..gram. 2 Gm TOP Q6H Nitroglycerin 0.4 Mg Tab.subl 0.4 Mg SL PRN PRN Lantus (Insulin Glargine,Hum.rec.anlog) 100 Unit/1 Ml Vial SQ BID Tylenol Extra Strength (Acetaminophen) 500 Mg Tablet 500 Mg PO QID Stiolto Respimat Inhal [place] (Tiotropium Br/Olodaterol HCl) 4 Gm Mist.inhal 2 Puffs IH DAILY Col-Rite (Docusate Sodium) 100 Mg Capsule 1 Capsule PO DAILY Lipitor* (Atorvastatin Calcium) 20 Mg Tablet 2 Tablet PO HS Flecainide Acetate 100 Mg Tablet 1 Tab PO Q12H 30 Days Metformin HCl 1,000 Mg Tablet 1 Tab PO Q12H 30 Days Omeprazole 20 Mg Tablet.dr 40 Mg PO DAILY 30 Days Magnesium Oxide 400 Mg Tablet 1 Tab PO Q12H 30 Days Gabapentin 300 Mg Capsule 1 Cap PO TID Vitamin D3 (Cholecalciferol) 1,000 Unit Capsule 1,000 Unit PO DAILY B Complex (Vitamin B Complex) 1 Each Tablet 1 Each PO DAILY Potassium Chloride 10 Meq Tablet.sa 1 Tab PO DAILY 30 Days Ferrous Sulfate 325 Mg Tablet 1 Tab PO DAILY 30 Days Calan SR* (Verapamil HCl) 120 Mg Tablet.sa 1 Tab PO DAILY PRADAXA capsule (Dabigatran) 150 Mg Capsule 1 Cap PO BID Fish Oil 1,000 mg Capsule (Webster-3 Fatty Acids/Fish Oil) 1 Each Capsule 1 Cap PO DAILY Furosemide 40 Mg Tablet 1 Tab PO DAILY 30 Days Amitriptyline Hcl (Amitriptyline HCl) 25 Mg Tablet 12.5 Mg PO HS Past Medical History Past Medical History Depression. Hypertension. CAD. Dyslipidemia. AFib. Diabetes mellitus. Lower back pain. COPD. Alcohol use. Past Surgical History Surgical History Comment None Family History Family History: FH: cancer sister brother Past Social History Social History Comment Smoking: Pack of cigarettes for at least 30 years. Quit 12 years ago. Occasional alcohol use. Denies illicit use of drugs. Lives with spouse. Lives in home. He is currently retired. Exam Vitals: Vital Signs Date Time Temp Pulse Resp B/P (MAP) Pulse Ox O2 Delivery O2 Flow Rate FiO2 11/25/24 11:03 16 11/25/24 08:22 28 11/25/24 08:00 96 Nasal Cannula 2.0 11/25/24 08:00 127/65 (85) 135/60 (85) 160/55 (90) 11/25/24 02:00 97.8 Physical exam: General: Well alert, well oriented, not confused, not agitated, not in acute distress, well cooperated during the physical. HEENT: Conjunctive are pink, sclerae clear, no icterus, pupil is equal in both sides, reactive to light, no ear discharge, no pharyngeal erythema or an edema. Neck: Supple, no JVD, no lymphadenopathy and thyromegaly. Chest: Equal air entry on both lungs, no additional sounds no rhonchi no wheezing at the moment. Cardiovascular: S1-S2 regular rate and rhythm, bradycardia, no gallops, no rubs, no murmurs Abdomen: No visible peristalsis, Bowel sounds present on auscultation, soft, nontender, no guarding, no rigidity Extremities: No obvious deformities, no pitting edema bilaterally, capillary refill intact, peripheral pulsations are intact on both sides Central Nervous System: No focal neurological deficits, no motor or sensory weakness in all 4 extremities, could move all 4 extremities, 2+ deep tendon reflexes, negative Babinski. Musculoskeletal: No joint swelling, deformities, inflammations, and no scoliosis and back tenderness Skin: Warm and dry. Diagnostic Data Last Recorded Lab Results: 11/25/24 0444 11/25/24 0444 Additional Plan Assessment and plan: 74 years old male patient came to the hospital with chief complaint of shortness of breath, dizziness, lightheadedness. Symptomatic Bradycardia: Atrial Fibrillation currently on bradycardia: Chads Vasc score: 4: EKG: Junctional rhythm, right bundle-branch block with QRS of 160, slurred S- wave in V6, RS pattern in V2, regular rhythm, heart rate 42. Previous EKGs of August 21, 2024 showing atrial fibrillation with right bundle- branch block. Telemetry monitoring showing junctional rhythm, heart rate dropped to 28 during the night of 11/24/2024. Per medical records the last time the patient take flecainide was on 2019. Plan: Plan for pacemaker tomorrow. Hold Pradaxa. Last dose yesterday in the morning. Hold any ashley agents. Continue telemetry monitoring. Atropine if heart rate drops below 30 beats per minute. Possible Acute Decompensated Heart Failure: Last echocardiogram in 2019: Left ventricular ejection fraction of 80%,Overall systolic function appears hyperdynamic. There is mild septal flattening, suggestive of right heart pressure/volume overload. Dilated RV size with normal function. ProBNP 929. Creatinine levels trending up. Plan Discontinue Lasix due to kidney function. Strict I&O and daily weight. Pending echocardiogram. Hypertension Current blood pressure within reference range. Other comorbidities: Type 2 Diabetes Mellitus COPD HARMAN: Most likely prerenal Hyperlipidemia Chronic pain/neuropathy Mood disorder MADHAVI Continue management as per primary team. Code status: Full code DVT prophylaxis: SCDs Analgesia/sedation: Morphine Line/tube: PIV GI prophylaxis: None Nutrition: Heart healthy diet. NPO after midnight. PT: Yes Prognosis: Guarded Disposition: Plan for pacemaker tomorrow. Cris Christian Internal Medicine Resident [facility] Patient seen and examined by Dr. CUMMINGS with resident physician. Patient is not on any rate slowing medications. Continues to have bradycardia and related symptoms like dizziness tiredness and fatigue. Would like to proceed with the ppm implantation. Risks benefits alternative options discussed informed consent obtained. Sepsis Screening Reassessment Date: Nov 26, 2024 Date of Service: Nov 25, 2024 Billing Provider: JESSICA SOTO MD, FRANCO LUIS, RES Nov 25, 2024 11:17 JESSICA SOTO MD Nov 26, 2024 19:38
[2024-11-25] MEDS ORDERED: albuterol 2.5 MG/3 ML nebule NEB PRN (13:45)
[2024-11-25] MEDS: HYDROcodone/acetaminophen 5mg/325mg tablet PO PRN (15:35)
--- NOTE | 2024-11-25 16:47 | PROGRESS NOTE- Residence ---
Progress Note - Resident Providers to CC Resident Creating Document: PEDRO LUIS RUFFIN, RES ~ Antibiotic Timeout Antibiotic Ordered?: No Subjective Patient was seen and examined at bedside, denied further episodes of dizziness. Complained of lower back pain for which she received stat dose of [place] 5. He has no other acute overnight symptoms. Objective Vital Signs Date Time Temp Pulse Resp B/P (MAP) Pulse Ox O2 Delivery O2 Flow Rate FiO2 11/25/24 15:35 14 11/25/24 11:00 97.7 42 158/55 (89) 98 Room Air 11/25/24 08:00 2.0 Result Diagram: 11/25/24 0444 11/25/24 0444 Awake , alert, and oriented x4, resting comfortably in the bed, in no acute distress HEENT: Atraumatic, normocephalic, EOMI, anicteric sclera ; pink conjunctiva Neck: Trachea midline. Supple, full range of motion, no JVD Cardiac: Irregular rhythm, irregular rate with no murmurs all over the precordium. Bradycardia Respiratory: Equal breath sounds bilaterally, no tachypnea, no wheezing ,rub or rales, Chest wall is symmetric and without deformity. Gastrointestinal: Abdomen symmetric, non-distended, soft, non-tender, normal bowel sounds x4 quadrant, normoactive, no hepatosplenomegaly Musculoskeletal: No pedal edema, no cyanosis Neurological: Speech is clear, alert, and oriented x 4. No motor or sensory deficit, deep tendon reflexes normal, cerebellar intact. Cranial nerves II-XII intact. Skin: Warm and dry Advance Care Planning Advanced Care plannin - 30 Minutes Plan Plan 1.Symptomatic Bradycardia Junctional Rhythm with RBBB Patient now symptomatic (dizziness, exertional intolerance) with HR in 30s40s Previously evaluated for pacemaker; now meets criteria given symptoms Plan: Admit to telemetry for continuous monitoring Cardiology consult in a.m. evaluate for permanent pacemaker Atropine PRN for symptomatic episodes Place pacer pads at bedside Hold AV nodalblocking agents (clonidine, flecainide, we will also consider stopping amlodipine if BP allows) 11/25/2024: AV ashley blocking agents: Clonidine flecainide on hold Telemetry: Heart rate around 28-30, with junctional rhythm Cardiology was consulted, Ezio Yeager, pacemaker placement tomorrow in a.m. NPO after midnight 2.Acute Decompensated Heart Failure (likely HFpEF, given HTN, AF history) Symptoms: dyspnea, weight gain, elevated BNP No LE edema but fluid retention likely Plan Initiated IV loop diuretic (Lasix 40 mg IV daily, we shall titrate to response) Strict I/O, daily weights, monitor renal function and electrolytes Repeat echocardiogram ordered Fluid restricted diet 11/25/2024: Reduced dose of Lasix to 20 mg IV daily, patient is currently not in volume overload Echocardiogram awaited 3.Type 2 Diabetes Mellitus On insulin aspart 70/30, semaglutide. UA with glucosuria. Plan: A1c ordered We will initiate insulin regimen with correctional/sliding scale inpatient based on blood sugars tomorrow Sugars to be maintained between 140-180 mg per day Hold semaglutide during admission Monitor FS glucose QAC & HS 11/25/2024: A1c 8.5 Patient blood sugar levels around 180-205 Lantus 12 units along with low-dose sliding scale protocol ordered 4.Atrial Fibrillation (chronic, rate controlled due to bradycardia) Benitez Vasc score 4 On dabigatran 150 mg BID for anticoagulation. Plan: Please hold dabigatran in view of possible pacemaker placement tomorrow No need for additional rate control (bradycardic) Reassess anticoagulation if pacemaker implanted 5.Hypertension Meds: amlodipine, losartan, chlorthalidone, clonidine BP stable on admission Plan: Continue losartan Continue amlodipine if SBP >110 Continue chlorthalidone if electrolytes stable after med rec Hold clonidine (risk of worsening bradycardia) 6.COPD On tiotropium/olodaterol inhaler and albuterol PRN. Stable, no acute exacerbation. Plan: Continue home inhalers Albuterol PRN 7. HARMAN: Most likely prerenal Creatinine 1.67, under monitoring CMP Avoid nephrotoxic agents 11/25/24: Creatinine trended up to 1.92, probably secondary Lasix usage Decreased dose of Lasix to 20 mg IV daily Due to elevated proBNP, currently awaiting fluid resuscitation Ordered urine lytes 8.Other Chronic Issues Type 2 diabetes mellitus: Monitor A1c and blood sugar glucose levels Hyperlipidemia continue atorvastatin; lipid panel: Slightly elevated triglycerides with normal cholesterol and LDL Chronic pain/neuropathy continue hydrocodone/acetaminophen PRN, amitriptyline, lidocaine patch; monitor sedation. Mood disorder continue bupropion, amitriptyline. MADHAVI continue CPAP at night 9. Isolated increase in alkaline phosphatase Bone versus skeletal muscle injury Ordered GGT differentiate further Differentials include pages versus vitamin-D deficiency versus bile duct injury Disposition: Pacemaker placement tomorrow Pedro Luis Ruffin MD Internal Medicine Resident, PGY-2 Date of Service: Nov 25, 2024 Billing Provider: MARGRET HIDALGO MD Common Visit Codes: [id number] INP/OBS CARE(HIGH) PEDRO LUIS RUFFIN, RES Nov 25, 2024 16:46 MARGRET HIDALGO MD Nov 26, 2024 20:14
[2024-11-25] MEDS: INSULIN LISPRO 100 UNIT/ML INSULN.PEN MULTI-DOSE SQ SCH (17:39)
--- NOTE | 2024-11-25 18:48 | CARDIOLOGY REPORT ---
APPROVED REPORT EXAM: Comprehensive 2D, Doppler, and color-flow Echocardiogram. Patient Location: [facility] Heart Rate: 39 bpm Rhythm: Bradycardia Indications CONGESTIVE HEART FAILURE ATRIAL FIBRILLATION BRADYCARDIA HTN COPD DIABETES MELITUS SHORTNESS OF BREATH x 1-2 days BARK TANNER: Emily Lopez MD [facility] PR[facility] ECHOCARDIOGRAM: HYPERDYNAMIC lvf, ef= 80%; SEPTAL FLATTENING, volume/pressure overload; mod LAE; m AV SCLEROSIS; m MAC; tr MR; ; m TR 2D Dimensions RVDd 4.9 cm IVSd 0.9 (0.7-1.1cm) LVDd 5.7 cm PWd 0.9 (0.7-1.1cm) IVSs 1.6 (0.8-1.2cm) LVDs 3.1 (2.5-4.0cm) PWs 1.9 (0.8-1.2cm) LVOT Diameter 2.00 (1.8-2.4cm) LVEF(%) 76.8 (>50%) FS (%) 46.1 % SV 124.4 ml CO 4.2 L/min M-Mode Dimensions Left Atrium(MM) 6.68 (2.5-4.0cm) Aortic Root 3.56 (2.2-3.7cm) Aortic Cusp Exc 2.16 (1.5-2.0cm) Aortic Valve AoV Peak Aurelio. 237.9 cm/s AoV VTI 48.2 cm AO Peak GR. 22.6 mmHg AO Mean GR. 8 mmHg LVOT VTI 35.29 cm LVOT Peak Aurelio. 176.8 cm/s DEEPA(VTI)/BSA 2.29 cm2/m2 DEEPA (VTI) 2.29 cm2 Mitral Valve MV E Velocity 163.0 cm/s MV Peak Gr. 12 mmHg MV A Velocity 50.9 cm/s MV PHT 72 ms E/A Ratio 3.2 MVA (PHT) 3.06 cm2 MV VMax 170.6 cm/s Pulmonary Valve PAEDP 17.84 mmHg Tricuspid Valve TR P. Velocity 427 cm/s RAP ESTIMATE 15 mmHg TR Peak Gr. 73 mmHg RVSP 88 mmHg LEFT VENTRICLE Normal LV size and wall thickness. Overall systolic function is hyperdynamic. Flattened septum compatible with right heart voulume/pressure overload. LVEF is 75-80%. RIGHT VENTRICLE Right ventricle is moderate to severely dilated. The right ventricular systolic function is normal. RVSP = 88 mmHg. ATRIA Left atrium is severely dilated. Right atrium is severely dilated. AORTIC VALVE Trileaflet AV appears mildly sclerotic without stenosis. No insufficiency. MITRAL VALVE Mild mitral annular calcification without stenosis. Mild regurgitation. TRICUSPID VALVE TV appears structurally normal with moderate regurgitation. GREAT VESSELS The aortic root is normal in size. Ascending aorta is normal in caliber. PERICARDIUM Normal pericardium. No effusion. Other Information Study Quality: Good Conclusion Normal LV size and wall thickness. Overall systolic function is hyperdynamic. Flattened septum compatible with right heart voulume/pressure overload. LVEF is 75-80%. Right ventricle is moderate to severely dilated. The right ventricular systolic function is normal. RVSP of 88 mmHg. Left atrium is severely dilated. Right atrium is severely dilated. Trileaflet AV appears mildly sclerotic without stenosis. No insufficiency. Mild mitral annular calcification without stenosis. Mild regurgitation. TV appears structurally normal with moderate regurgitation. Normal pericardium. No effusion.
[2024-11-25 19:27] LABS: OSMOLALITY UA 521.0 MOSM/K (50-1400)
[2024-11-25 19:42] LABS: CREATININE,URINE RANDOM 52.0 MG/DL
[2024-11-25] MEDS: buPROPion SR 150mg tablet PO SCH (20:02)
[2024-11-25] MEDS: insulin glargine (Lantus) pen - multi-dose SQ SCH (20:39)
[2024-11-26] VITALS (11 sets, daily range): BP systolic 117–159; BP diastolic 46–105; PULSE 36–62; RESP 11–27; TEMP 97.4–98.7; O2SAT 92–98
[2024-11-26 06:49] LABS: MEAN PLATELET VOLUME 8.6 FL (7.4-10.4); RED CELL DISTRIBUTION WIDTH 15.6 % (11.5-14.5)
[2024-11-26 07:28] LABS: CREATININE 1.38 MG/DL (0.60-1.10); TOTAL CARBON DIOXIDE 24.2 MMOL/L (24-32); eCRCL 52 ML/MIN; eGFR 50 ML/MIN
[2024-11-26] MEDS: aspirin 81mg, enteric-coated 1 TAB TABLET.DR PO SCH (08:00)
[2024-11-26] MEDS ORDERED: Tiotropium Br/Olodaterol HCl (Stiolto Respimat Inhal Spray) IH SCH (08:00)
[2024-11-26 12:16] LABS: PRO BRAIN NATRIURETIC PEPTIDE 3396 PG/ML (0-125)
[2024-11-26] MEDS ORDERED: fentaNYL/PF 50MCG/1 ML 2ML syringe ONE ×2 (14:15→15:33)
[2024-11-26] MEDS ORDERED: midazolam 1 mg/ML 2ml injection ONE (14:15)
[2024-11-26] MEDS ORDERED: LIDOcaine 1% W/epiNEPHrine 1:100,000 20ml vial ONE (14:15)
[2024-11-26] MEDS: ceFAZolin 2gm/dext,iso 50mL 50 ML IV ONE (14:30)
[2024-11-26] MEDS ORDERED: iohexol 350 MG/ML 50ML vial IV ONE (15:03)
--- NOTE | 2024-11-26 16:44 | PROGRESS NOTE- Residence ---
Progress Note - Resident Providers to CC Resident Creating Document: PEDRO LUIS RUFFIN, RES ~ Antibiotic Timeout Antibiotic Ordered?: No Subjective The patient was evaluated and assessed at the bedside. The patient experienced a fall despite receiving warnings to refrain from walking to the restroom unassisted. He reports that the fall was due to feelings of weakness and mild dizziness. However, he did not hit his head nor did he experience a fainting episode. Objective Vital Signs Date Time Temp Pulse Resp B/P (MAP) Pulse Ox O2 Delivery O2 Flow Rate FiO2 11/26/24 14:16 42 159/105 (123) 39 145/46 (79) 38 133/46 (75) 11/26/24 13:01 98.0 11 95 Room Air 11/26/24 08:00 2.0 Result Diagram: 11/26/2462011/26/24620 Awake , alert, and oriented x4, resting comfortably in the bed, in no acute distress HEENT: Atraumatic, normocephalic, EOMI, anicteric sclera ; pink conjunctiva Neck: Trachea midline. Supple, full range of motion, no JVD Cardiac: Irregular rhythm, irregular rate with no murmurs all over the precordium. Bradycardia Respiratory: Equal breath sounds bilaterally, no tachypnea, no wheezing ,rub or rales, Chest wall is symmetric and without deformity. Gastrointestinal: Abdomen symmetric, non-distended, soft, non-tender, normal bowel sounds x4 quadrant, normoactive, no hepatosplenomegaly Musculoskeletal: No pedal edema, no cyanosis Neurological: Speech is clear, alert, and oriented x 4. No motor or sensory deficit, deep tendon reflexes normal, cerebellar intact. Cranial nerves II-XII intact. Skin: Warm and dry Advance Care Planning Advanced Care plannin - 30 Minutes Plan Plan 1.Symptomatic Bradycardia Junctional Rhythm with RBBB Orthostatic hypotension Patient now symptomatic (dizziness, exertional intolerance) with HR in 30s40s Previously evaluated for pacemaker; now meets criteria given symptoms Plan: Admit to telemetry for continuous monitoring Cardiology consult in a.m. evaluate for permanent pacemaker Atropine PRN for symptomatic episodes Place pacer pads at bedside Hold AV nodalblocking agents (clonidine, flecainide, we will also consider stopping amlodipine if BP allows) 11/25/2024: AV ashley blocking agents: Clonidine flecainide on hold Telemetry: Heart rate around 28-30, with junctional rhythm Cardiology was consulted, Ezio Yeager, pacemaker placement tomorrow in a.m. NPO after midnight 11/26/2024: Telemetry shows heart rate around 30s with junctional rhythm Patient to undergo pacemaker placement today by Dr. Ezio Yeager Continue avoiding AV blocking agents until further recommendations per Cardiology Orthostatic vitals positive today, ordered 500 mL in his IV bolus We will reassess tomorrow in a.m. and further evaluate 2.Acute Decompensated Heart Failure (likely HFpEF, given HTN, AF history) Group 2: Pulmonary Hypertension Due to Left Heart Disease Symptoms: dyspnea, weight gain, elevated BNP No LE edema but fluid retention likely Plan Initiated IV loop diuretic (Lasix 40 mg IV daily, we shall titrate to response) Strict I/O, daily weights, monitor renal function and electrolytes Repeat echocardiogram ordered Fluid restricted diet 11/25/2024: Reduced dose of Lasix to 20 mg IV daily, patient is currently not in volume overload Echocardiogram awaited 11/26/2024: Echocardiogram: LVEF 75-80% with a RVSP of 88, right ventricular severely dilated; severely dilated left atrium and right atrium Lasix on hold, per Cardiology Shortness of breaths has a improved significantly since the day of admission Echocardiogram findings could most possibly be secondary to chronic congestive heart failure leading to severe dilation of left atrium right ventricle and right atrium 3.Type 2 Diabetes Mellitus On insulin aspart 70/30, semaglutide. UA with glucosuria. Plan: A1c ordered We will initiate insulin regimen with correctional/sliding scale inpatient based on blood sugars tomorrow Sugars to be maintained between 140-180 mg per day Hold semaglutide during admission Monitor FS glucose QAC & HS 11/25/2024: A1c 8.5 Patient blood sugar levels around 180-205 Lantus 12 units along with low-dose sliding scale protocol ordered 11/26/2024: Blood sugar levels were around 220s Hence increase Lantus dose to 15 units with Humalog 5 units before meals 4.Atrial Fibrillation (chronic, rate controlled due to bradycardia) Benitez Vasc score 4 On dabigatran 150 mg BID for anticoagulation. Plan: Please hold dabigatran in view of possible pacemaker placement tomorrow No need for additional rate control (bradycardic) Reassess anticoagulation after pacemaker implantation 11/26/2024: We will re-initiate dabigatran tomorrow in a.m. 5.Hypertension Meds: amlodipine, losartan, chlorthalidone, clonidine BP stable on admission Plan: Continue losartan Continue amlodipine if SBP >110 Continue chlorthalidone if electrolytes stable after med rec Hold clonidine (risk of worsening bradycardia) 6.COPD On tiotropium/olodaterol inhaler and albuterol PRN. Stable, no acute exacerbation. Plan: Continue home inhalers Albuterol PRN 7. HARMAN: Most likely prerenal Creatinine 1.67, under monitoring CMP Avoid nephrotoxic agents 11/25/24: Creatinine trended up to 1.92, probably secondary Lasix usage Discontinued Lasix of 20mg IV daily Due to elevated proBNP, currently awaiting fluid resuscitation Ordered urine lytes 11/26/2024: Urine lytes: Urine osmolality 521, urine sodium 18, urine creatinine 52, urine potassium 35 FENA: 0.5% Orthostatic vitals were positive, hence initiated 500 mL of IV NS 8.Other Chronic Issues Hyperlipidemia continue atorvastatin; lipid panel: Slightly elevated triglycerides with normal cholesterol and LDL Chronic pain/neuropathy continue hydrocodone/acetaminophen PRN, amitriptyline, lidocaine patch; monitor sedation. Mood disorder continue bupropion, amitriptyline. MADHAVI continue CPAP at night 9. Isolated increase in alkaline phosphatase Bone versus skeletal muscle injury Ordered GGT differentiate further Differentials include pages versus vitamin-D deficiency versus bile duct injury 11/26/2024: Awaiting GGT level Ordered abdominal ultrasound 10. Low back pain: Continue home medications [place] 5 daily Ordered x-ray thoracic and lumbar spine Disposition: Pacemaker placement today Pedro Luis Ruffin MD Internal Medicine Resident, PGY-2 Date of Service: Nov 26, 2024 Billing Provider: MARGRET HIDALGO MD Common Visit Codes: [id number] INP/OBS CARE(HIGH) PEDRO LUIS RUFFIN, RES Nov 26, 2024 16:44 MARGRET HIDALGO MD Nov 26, 2024 20:15
[2024-11-26] MEDS ORDERED: HYDROcodone/acetaminophen 5mg/325mg tablet PO PRN (17:15)
[2024-11-26] MEDS: HYDROcodone/acetaminophen 10/325mg tab PO PRN (17:33)
--- NOTE | 2024-11-26 17:58 | RADIOLOGY REPORT ---
ABDOMINAL ULTRASOUND CLINICAL HISTORY: Elevated ALP TECHNIQUE: Multiple grayscale and color Doppler ultrasound images were obtained of the abdomen. WID: COMPARISON: None FINDINGS: Evaluation is limited as the patient's left arm and shoulder immobile and as a result limited patient mobility. Liver and Biliary System: Homogeneous echotexture, normal size measuring 14.7 cm. No focal hepatic observations. No intrahepatic bile duct dilatation. The common duct measures 0.5 cm at the rahat hepatis. The gallbladder is normal caliber with borderline wall thickening. No cholelithiasis. Sonographic quinn's sign is negative. Pancreas: Not well seen due to overlying bowel gas Kidneys: The right kidney is 10.2 cm. No hydronephrosis, increased echogenicity, shadowing stone, or focal lesion. IMPRESSION: 1. No acute cholecystitis or biliary ductal dilatation. 2. Evaluation is limited due to limited patient mobility.
[2024-11-26] MEDS: vancomycin/NS 1 GM ADD-VANTAGE 250 ML X 1 DOSE IV ONE (19:25)
[2024-11-26] MEDS: INSULIN LISPRO 100 UNIT/ML INSULN.PEN MULTI-DOSE SQ SCH (19:36)
--- NOTE | 2024-11-26 20:54 | RADIOLOGY REPORT ---
CLINICAL HISTORY: Lower back pain TECHNIQUE: 5 views of the lumbar spine were obtained. WID: COMPARISON: None FINDINGS: There are 5 [id number] lumbar type vertebral bodies. The pedicles are intact. Sacroiliac joints are maintained. The vertebral body heights are maintained. Grade 1 anterolisthesis at L4-L5. There is mild multilevel lower thoracic and lumbar spondylosis with multilevel osteophyte formation and mild disc space narrowing at L4-L5 and L5-S1. Multilevel facet hypertrophy. No acute fracture. Calcified athero sclerosis projects over the aortoiliac vessels. Visualized bowel gas is nonobstructed. IMPRESSION: 1. Multilevel lower thoracic and lumbar spondylosis. 2. No acute fracture.
--- NOTE | 2024-11-26 20:57 | RADIOLOGY REPORT ---
EXAM: DI THORACIC SPINE COMPLETE INDICATION: Lower back pain COMPARISON: None TECHNIQUE: 3 views of the thoracic spine were obtained. Findings: There are 12 rib-bearing thoracic type vertebral bodies. The pedicles are grossly intact. Vertebral body heights are maintained. Mild multilevel thoracic spondylosis. No acute fracture. Mild cardiomegaly and mild prominence of the central pulmonary vasculature. Small bilateral pleural effusions. Left-sided dual lead pacemaker partially imaged. Impression: 1. Mild thoracic spondylosis. No acute fracture or traumatic malalignment. 2. Mild cardiomegaly, prominence of the central pulmonary vasculature and small bilateral pleural effusions.
[2024-11-26] MEDS: insulin glargine (Lantus) pen - multi-dose SQ SCH (21:34)
[2024-11-27 02:00] VITALS: BP 115/73; PULSE 61; RESP 17; TEMP 97; O2SAT 94
[2024-11-27 06:00] VITALS: BP 142/59; PULSE 61; RESP 15; TEMP 97.3; O2SAT 96
[2024-11-27 06:23] LABS: MEAN PLATELET VOLUME 8.5 FL (7.4-10.4); RED CELL DISTRIBUTION WIDTH 15.6 % (11.5-14.5)
[2024-11-27 06:49] LABS: CREATININE 1.22 MG/DL (0.60-1.10); TOTAL CARBON DIOXIDE 25.5 MMOL/L (24-32); eCRCL 58 ML/MIN; eGFR 58 ML/MIN
[2024-11-27 07:07] LABS: BANDS% (MANUAL) 4.0 % (0-10); EOSINOPHILS % (MANUAL) 4.0 % (0-6); LYMPHOCYTES % (MANUAL) 7.0 % (21-51); METAMYLEOCYTES% (MANUAL) 4.0 % (0-0); MONOCYTES % (MANUAL) 10.0 % (2-12); NEUTROPHILS % (MANUAL) 71.0 % (42-75); NUCLEATED RED BLOOD CELLS 1 /100WBC (0-0)
[2024-11-27 07:08] LABS: PLATELET ESTIMATE NORMAL
--- NOTE | 2024-11-27 07:48 | PROGRESS NOTE- Residence ---
Progress Note - Resident Providers to CC Resident Creating Document: CRIS MEYER RES ~ Antibiotic Timeout Antibiotic Ordered?: Yes Subjective The patient has been evaluated at bedside. The patient is currently asymptomatic. Objective Vital Signs Date Time Temp Pulse Resp B/P (MAP) Pulse Ox O2 Delivery O2 Flow Rate FiO2 11/27/24 06:30 60 11/27/24 05:26 22 11/27/24 02:00 97.0 115/73 (87) 94 Room Air 11/26/24 08:00 2.0 Physical exam: General: Well alert, well oriented, not confused, not agitated, not in acute distress, well cooperated during the physical. HEENT: Conjunctive are pink, sclerae clear, no icterus, pupil is equal in both sides, reactive to light, no ear discharge, no pharyngeal erythema or an edema. Neck: Supple, no JVD, no lymphadenopathy and thyromegaly. Chest: Equal air entry on both lungs, no additional sounds no rhonchi no wheezing at the moment. Presence of clean compression dressing in the level of the left upper chest wound without signs of hematoma or infection. Cardiovascular: S1-S2 regular rate and rhythm, bradycardia, no gallops, no rubs, no murmurs Abdomen: No visible peristalsis, Bowel sounds present on auscultation, soft, nontender, no guarding, no rigidity Extremities: No obvious deformities, no pitting edema bilaterally, capillary refill intact, peripheral pulsations are intact on both sides Central Nervous System: No focal neurological deficits, no motor or sensory weakness in all 4 extremities, could move all 4 extremities, 2+ deep tendon reflexes, negative Babinski. Musculoskeletal: No joint swelling, deformities, inflammations, and no scoliosis and back tenderness Skin: Warm and dry. Result Diagram: 11/27/2453011/27/24530 Assessment Assessment 74 years old male patient came to the hospital with chief complaint of shortness of breath, dizziness, lightheadedness. Plan Plan Symptomatic Bradycardia: Atrial Fibrillation currently on bradycardia: Chads Vasc score: 4: Status post dual pacemaker on 11/26/2024: EKG: Junctional rhythm, right bundle-branch block with QRS of 160, slurred S- wave in V6, RS pattern in V2, regular rhythm, heart rate 42. Previous EKGs of August 21, 2024 showing atrial fibrillation with right bundle- branch block. Telemetry monitoring showing junctional rhythm, heart rate dropped to 28 during the night of 11/24/2024. Per medical records the last time the patient take flecainide was on 2018. Plan: Follow-up for stitches removal within one week. Follow-up for pacemaker evaluation within one month. Avoid raising the left upper extremity above 45. Cephalexin 500 mg t.i.d. for five days. Resume blood thinner, Pradaxa on Sunday. Possible Acute Decompensated Heart Failure: Last echocardiogram in 2019: Left ventricular ejection fraction of 80%,Overall systolic function appears hyperdynamic. There is mild septal flattening, suggestive of right heart pressure/volume overload. Dilated RV size with normal function. ProBNP 929. Creatinine levels trending up. Echocardiogram: Normal LV size and wall thickness. Overall systolic function is hyperdynamic. Flattened septum compatible with right heart voulume/pressure overload. LVEF is 75-80%. Right ventricle is moderate to severely dilated. The right ventricular systolic function is normal. RVSP of 88 mmHg. Left atrium is severely dilated. Hypertension Current blood pressure within reference range. Other comorbidities: Type 2 Diabetes Mellitus COPD HARMAN: Most likely prerenal Hyperlipidemia Chronic pain/neuropathy Mood disorder MADHAVI Continue management as per primary team. Code status: Full code DVT prophylaxis: SCDs Analgesia/sedation: Morphine Line/tube: PIV GI prophylaxis: None Nutrition: Heart healthy diet. PT: Yes Prognosis: Guarded Disposition: Follow-up for stitches removal within one week, pacemaker evaluation within one month as an outpatient. Cris Christian [facility] Resident [facility] Date of Service: Nov 27, 2024 Billing Provider: JESSICA SOTO MD,CRIS WALLIS, RES Nov 27, 2024 07:48
[2024-11-27 08:00] VITALS: RESP 18; O2SAT 96
--- NOTE | 2024-11-27 10:35 | RADIOLOGY REPORT ---
EXAM: DI CHEST,SINGLE VIEW Indication: PPM check Technique: Single frontal view of the chest was obtained Comparison: DI THORACIC SPINE COMPLETE on DOS: 11/26/24, DI CHEST,SINGLE VIEW on DOS: 11/24/24 FINDINGS: Lines and Tubes: Cardiac pacemaker projects over left chest wall. Lungs: No focal consolidation. Pleura: No effusion. No pneumothorax. Cardiomediastinal contours: Mild cardiomegaly. Bones: No acute osseous abnormality. IMPRESSION: No acute cardiopulmonary disease.
[2024-11-27 11:00] VITALS: BP 131/53; PULSE 64; RESP 18; TEMP 96.9; O2SAT 96
[2024-11-27] MEDS ORDERED: CEPH-585 PO (12:26)
[2024-11-27] MEDS ORDERED: FURO20TA4 PO (12:26)
--- NOTE | 2024-11-27 19:16 | DISCHARGE SUMMARY-Residence ---
Discharge Summary Providers to CC Resident Creating Document: CUJULIO VILLELA, RES ~ Discharge Summary Admission Diagnosis: Bradycardia Hospital Course DATE OF ADMISSION: 11/24/2024 DATE OF DISCHARGE: 11/27/2024 Discharge Diagnosis\Comment: Symptomatic Bradycardia: Atrial Fibrillation currently on bradycardia: Chads Vasc score: 4: Status post dual pacemaker on 11/26/2024: Possible Acute Decompensated Heart Failure: Hypertension Other comorbidities: Type 2 Diabetes Mellitus COPD HARMAN: Most likely prerenal Hyperlipidemia Chronic pain/neuropathy Mood disorder MADHAVI Operations\Procedures: Status post pacemaker placement Consultants: Cardiology Complications: None Condition on DC: Stable New Medications: Furosemide (Furosemide) 20 Mg Tablet 1 TAB PO DAILY for 30 Days, #30 TAB 0 Refills Cephalexin*Monohydrate* (Keflex*) 500 Mg Capsule 500 MG PO TID for 5 Days, #15 CAP Continued Medications: albuterol inhaler (Pro-Air Inhaler) 8.5 Gm Inhaler 2 PUFFS INH Q6H PRN for wheezing for 30 Days, #18 GM Amitriptyline Hcl (Amitriptyline Hcl) 25 Mg Tablet 12.5 MG PO HS Amlodipine Besylate (Amlodipine Besylate) 10 Mg Tablet 1 TAB PO QPM for 30 Days, #30 TAB 0 Refills Atorvastatin Calcium* (Lipitor*) 20 Mg Tablet 2 TABLET PO HS, TABLET Bupropion Hcl SR* (Wellbutrin SR*) 150 Mg Tablet.sa 1 TAB PO Q12H for 30 Days, #60 TAB LOOK-ALIKE SOUND-ALIKE DRUG buSPIRone & buPROPion Chlorthalidone (Chlorthalidone) 25 Mg Tablet 1 TAB PO BID for 30 Days, #30 TAB 0 Refills Dabigatran (PRADAXA capsule) 150 Mg Capsule 1 CAP PO BID, CAP Diclofenac Sodium (Voltaren) 100 Gm Gel..gram. 2 GM TOP Q6H Docusate Sodium (Col-Rite) 100 Mg Capsule 1 CAPSULE PO DAILY Gabapentin (Gabapentin) 300 Mg Capsule 1 CAP PO TID, #90 CAP Hydrocodone Bit/Acetaminophen (Hydrocodon-Acetaminophen 5-325) 5 Mg-325 Mg Tablet 1 TAB PO Q4H PRN for pain for 5 Days, #10 TAB Hydrophilic Cream (Triad) 71 Gm Paste..gm. 71 GM TP, GM Insulin Aspart (Novolog) 100 Unit/Ml (3 Ml) Insuln.pen 100 UNIT SQ, UNIT Insulin Glargine,Hum.rec.anlog (Lantus) 100 Unit/1 Ml Vial SQ BID Lidocaine (Lidocaine Pain Relief) 4 % Adh..patch 1 PATCH TOP DAILY for 30 Days, #30 PATCH 0 Refills Losartan Potassium* (Cozaar*) 25 Mg Tablet 4 TAB PO DAILY for 30 Days, #30 TAB Magnesium Oxide (Magnesium Oxide) 400 Mg Tablet 1 TAB PO Q12H for 30 Days, #60 TAB Metformin HCl (Metformin HCl) 1,000 Mg Tablet 1 TAB PO Q12H for 30 Days, #60 TAB Nitroglycerin (Nitroglycerin) 0.4 Mg Tab.subl 0.4 MG SL PRN PRN for chest pain Webb-3 Fatty Acids/Fish Oil (Fish Oil 1,000 mg Capsule) 1 Each Capsule 1 CAP PO DAILY Omeprazole (Omeprazole) 20 Mg Tablet.dr 40 MG PO DAILY for 30 Days, #30 TAB Ropinirole Hcl (Ropinirole Hcl) 0.5 Mg Tablet 1 TAB PO HS for 30 Days, #30 TAB 0 Refills Semaglutide (Ozempic) 1 Mg/0.75 Ml (4 Mg/3 Ml) Pen.injctr 1 MG SUBCUT Q7D for 30 Days, #3 ML 0 Refills Tiotropium Br/Olodaterol HCl (Stiolto Respimat Inhal [place]) 4 Gm Mist.inhal 2 PUFFS IH DAILY Triamcinolone Acetonide 0.1% Crm* (Kenalog 0.1% Crm*) 1 Applic Tube 1 APPLIC TOP Q12H for 10 Days, #80 GM Vitamin B Complex (B Complex) 1 Each Tablet 1 EACH PO DAILY, TAB Discharge Summary: HPI as per admitting physician: A 74-year-old with a past medical history notable for chronic atrial fibrillation with longstanding bradycardia, hypertension, COPD, type 2 diabetes mellitus, obstructive/complex sleep apnea, and alcohol use disorder who presents with progressive dyspnea and new s ymptomatic bradycardia. The patient reports progressive shortness of breath, most pronounced with ambulation, developing over days to weeks and felt to be worse over the past 12 days. He also notes weight gain of approximately 34 pounds over the past week, with the majority occurring in the last 12 days. In addition, he describes increasing lightheadedness and dizziness without loss of consciousness. He denies syncope, chest pain, palpitations, diaphoresis, syncope, focal weakness, visual changes, nausea, vomiting, fever, or infectious symptoms. He reports he is on a water pill at home. Of note, his baseline resting heart rate historically averaged in the 50s with occasional dips into the high 30s40s and he was previously evaluated for possible pacemaker placement but was not symptomatic at that time. Over the last 24 hours in clinic his heart rate was persistently in the mid-30s and he became symptomatic with dizziness and decreased exercise tolerance. In clinic on 11/24/2024 at 10:22, vital signs were notable for pulse 38 bpm, BP 139/64 mmHg, RR 16, T 97.9F, SpO2 94% on room air. Objective testing and labs obtained in clinic show an EKG with junctional rhythm and right bundle branch block, ventricular rate ~41 bpm with RR interval 1463 ms. Laboratory evaluation demonstrated an elevated BNP, and a mildly elevated high-sensitivity troponin I (53, per lab report). Serum magnesium 2.6 mg/dL. Given symptomatic bradycardia, the patient received atropine 0.5 mg in clinic and IV furosemide 40 mg for concern for volume overload/heart failure. Because his bradycardia became symptomatic and his EKG and labs were concerning, EMS was called and he was transferred to [facility] today. Hospital course: On presentation, his heart rate was in the 30s40s, and telemetry revealed a junctional rhythm with right bundle-branch block. Given his symptomatic bradycardia and persistent junctional rhythm, cardiology (Dr. Ezio Yeager) was consulted, and the patient underwent successful permanent pacemaker placement on 11/26/2024. Post-procedure, his heart rate stabilized, and he reported significant improvement in dizziness and exertional tolerance. Dabigatran, which had been held erendira-procedurally, was resumed once cleared by cardiology. During hospitalization, the patient was also treated for acute decompensated heart failure, likely HFpEF with associated pulmonary hypertension. Initially, IV loop diuretic therapy was started, but was later reduced and then transitioned to oral furosemide 20 mg daily as he achieved euvolemia. Echocardiogram revealed preserved EF (7580%) with severe biatrial enlargement and markedly elevated RVSP, consistent with chronic pulmonary hypertension. His shortness of breath improved significantly with medical therapy and careful volume management. Management of atrial fibrillation remained rate-controlled after pacemaker implantation, and he continued anticoagulation with dabigatran. His type 2 diabetes mellitus was optimized with basal-bolus insulin, and his A1c was noted to be 8.5%, with plans for outpatient endocrinology follow-up for further titration. Hypertension remained stable with continuation of losartan and cautious reintroduction of other antihypertensives. His HARMAN, likely prerenal due to diuretic use and relative hypotension, improved after adjustment of diuretic therapy and IV fluid support. COPD remained stable, and he continued on his home inhalers. Additional findings included a mild isolated elevation in alkaline phosphatase, for which outpatient follow-up was arranged after initial inpatient workup with GGT and abdominal ultrasound. All those GGT were pending and recommended outpatient management. His chronic low back pain was managed with continuation of home analgesics. At the time of discharge, the patient was clinically stable, with improved heart rate and blood pressure, resolution of dizziness, and improved exertional capacity. He was discharged home on oral furosemide 20 mg daily, continuation of his home guideline-directed therapy, and close outpatient follow-up with cardiology for pacemaker monitoring, medication titration, and further management of heart failure and pulmonary hypertension. Imaging: Echocardiogram Normal LV size and wall thickness. Overall systolic function is hyperdynamic. Flattened septum compatible with right heart voulume/pressure overload. LVEF is 75-80%. Right ventricle is moderate to severely dilated. The right ventricular systolic function is normal. RVSP of 88 mmHg. Left atrium is severely dilated. Right atrium is severely dilated. Trileaflet AV appears mildly sclerotic without stenosis. No insufficiency. Mild mitral annular calcification without stenosis. Mild regurgitation. TV appears structurally normal with moderate regurgitation. Normal pericardium. No effusion. Abdominal ultrasound No acute cholecystitis or biliary ductal dilatation. Evaluation is limited due to limited patient mobility. Lumbar x-ray: Multilevel lower thoracic and lumbar spondylosis. No acute fracture. Thoracic spine x-ray: Mild thoracic spondylosis. No acute fracture or traumatic malalignment. Mild cardiomegaly, prominence of the central pulmonary vasculature and small bilateral pleural effusions. Physical examination today: Awake , alert, and oriented x4, resting comfortably in the bed, in no acute distress HEENT: Atraumatic, normocephalic, EOMI, anicteric sclera ; pink conjunctiva Neck: Trachea midline. Supple, full range of motion, no JVD Cardiac: Irregular rhythm, irregular rate with no murmurs all over the precordium. Bradycardia Respiratory: Equal breath sounds bilaterally, no tachypnea, no wheezing ,rub or rales, Chest wall is symmetric and without deformity. Gastrointestinal: Abdomen symmetric, non-distended, soft, non-tender, normal bowel sounds x4 quadrant, normoactive, no hepatosplenomegaly Musculoskeletal: No pedal edema, no cyanosis Neurological: Speech is clear, alert, and oriented x 4. No motor or sensory deficit, deep tendon reflexes normal, cerebellar intact. Cranial nerves II-XII intact. Skin: Warm and dry Laboratory Tests Test 11/25/24 20:34 11/26/24 06:21 11/26/24 12:05 11/26/24 17:25 Glucometer 274 mg/dl 244 mg/dl 167 mg/dl White Blood Count 9.8 X10'3 Red Blood Count 3.74 X10'6 Hemoglobin 10.6 g/dl Hematocrit 31.4 % Mean Corpuscular Volume 84.1 FL Mean Corpuscular Hemoglobin 28.3 PG Mean Corpuscular Hemoglobin Concent 33.7 g/dL Red Cell Distribution Width 15.6 % Platelet Count 182 X10'3 Mean Platelet Volume 8.6 FL Neutrophils (%) (Auto) 80.4 % Lymphocytes (%) (Auto) 8.7 % Monocytes (%) (Auto) 9.3 % Eosinophils (%) (Auto) 1.4 % Basophils (%) (Auto) 0.2 % Neutrophils # (Auto) 7.9 X10'3 Lymphocytes # (Auto) 0.9 X10'3 Monocytes # (Auto) 0.9 X10'3 Eosinophils # (Auto) 0.1 X10'3 Basophils # (Auto) 0.0 X10'3 CBC Comment Sodium Level 142 MMOL/L Potassium Level 3.7 MMOL/L Chloride Level 103 MMOL/L Carbon Dioxide Level 24.2 MMOL/L Anion Gap 15 Blood Urea Nitrogen 69 MG/DL Creatinine 1.38 MG/DL Estimated GFR/1.73 m2 50 ML/MIN BUN/Creatinine Ratio 50.0 Glucose Level 189 MG/DL Calcium Level 8.8 MG/DL Magnesium Level 2.5 MG/DL Total Bilirubin 0.7 MG/DL Aspartate Amino Transf (AST/SGOT) 53 U/L Alanine Aminotransferase (ALT/SGPT) 39 U/L Alkaline Phosphatase 894 IU/L Pro-B-Type Natriuretic Peptide 3396 PG/ML Total Protein 7.1 G/DL Albumin 3.4 G/DL Globulin 3.7 G/DL Albumin/Globulin Ratio 0.9 Chemistry Comments Test 11/26/24 19:23 11/26/24 21:30 11/27/24 05:31 11/27/24 12:18 Glucometer 242 mg/dl 254 mg/dl 169 mg/dl White Blood Count 11.9 X10'3 Red Blood Count 3.89 X10'6 Hemoglobin 11.0 g/dl Hematocrit 33.0 % Mean Corpuscular Volume 84.9 FL Mean Corpuscular Hemoglobin 28.2 PG Mean Corpuscular Hemoglobin Concent 33.2 g/dL Red Cell Distribution Width 15.6 % Platelet Count 201 X10'3 Mean Platelet Volume 8.5 FL Neutrophils (%) (Auto) 80.2 % Lymphocytes (%) (Auto) 8.4 % Monocytes (%) (Auto) 9.6 % Eosinophils (%) (Auto) 1.5 % Basophils (%) (Auto) 0.3 % Neutrophils # (Auto) 9.5 X10'3 Lymphocytes # (Auto) 1.0 X10'3 Monocytes # (Auto) 1.1 X10'3 Eosinophils # (Auto) 0.2 X10'3 Basophils # (Auto) 0.0 X10'3 CBC Comment Differential Total Cells Counted 100 Neutrophils % (Manual) 71.0 % Band Neutrophils % 4.0 % Lymphocytes % (Manual) 7.0 % Monocytes % (Manual) 10.0 % Eosinophils % (Manual) 4.0 % Metamyelocytes % 4.0 % Nucleated Red Blood Cells 1 /100WBC Platelet Estimate Normal Red Blood Cell Morphology Normal Basophilic Stippling Sodium Level 144 MMOL/L Potassium Level 3.8 MMOL/L Chloride Level 105 MMOL/L Carbon Dioxide Level 25.5 MMOL/L Anion Gap 14 Blood Urea Nitrogen 53 MG/DL Creatinine 1.22 MG/DL Estimated GFR/1.73 m2 58 ML/MIN BUN/Creatinine Ratio 43.4 Glucose Level 169 MG/DL Calcium Level 8.8 MG/DL Magnesium Level 2.6 MG/DL Total Bilirubin 1.0 MG/DL Aspartate Amino Transf (AST/SGOT) 118 U/L Alanine Aminotransferase (ALT/SGPT) 37 U/L Alkaline Phosphatase 1028 IU/L Total Protein 7.3 G/DL Albumin 3.5 G/DL Globulin 3.8 G/DL Albumin/Globulin Ratio 0.9 Chemistry Comments Advise on discharge: Follow-up for stitches removal within one week. Follow-up for pacemaker evaluation within one month. Avoid raising the left upper extremity above 45. Cephalexin 500 mg t.i.d. for five days. Resume blood thinner, Pradaxa on Sunday. *Problems/Diagnosis: (1) Symptomatic bradycardia Status: Acute Total Time Spent on D/C: > 30 Minutes Date of Service: Nov 27, 2024 Billing Provider: MARGRTE HIDALGO MD Common Visit Codes: 10194-NFL/OBS DISCH DAY >30min JULIO HAIDER, RES Nov 27, 2024 19:16 MARGRET HIDALGO MD Nov 28, 2024 07:30
--- NOTE | 2024-12-01 04:52 | CARDIOLOGY REPORT ---
DATE OF SERVICE: 11/26/2024 DICTATING PHYSICIAN: MARBIN Cordon MD PERMANENT PACEMAKER IMPLANTATION REPORT GENDER: Male. AGE: 74 years. HEIGHT: 183 cm. WEIGHT: 96 kg. BODY SURFACE AREA: 2.18 m2. INDICATION: The patient is a 74-year-old male with history of CAD, hypertension, hyperlipidemia, diabetes, COPD, sick sinus syndrome, who came in with symptomatic bradycardia. The patient also is having lightheadedness, dizziness, presyncopal episodes. Lately, the patient has had problems with bradycardia for some time and apparently, he was evaluated for pacemaker implantation. Since his symptoms are not very severe, he wanted to wait, but lately the heart rate has been dipping into 20s, 30s, and 40s and he came to the emergency room and has been hospitalized. The patient also has a history of paroxysmal atrial fibrillation, history of CHF. PRIMARY PHYSICIAN: [facility]. ACCOUNTANT CERTIFIED PUBLIC: MARBIN Cordon MD PROCEDURES DONE: * The patient underwent fluoroscopy. * Sequential pacemaker implantation. * Conscious sedation time is 75 minutes. SURGEON: MARBIN Cordon MD ANESTHESIOLOGIST: None. ANESTHESIA USED: Conscious sedation with local anesthesia. COMPLICATIONS: None. BLOOD LOSS: Less than 5 mL. PREPROCEDURE DIAGNOSES: Sick sinus syndrome with symptomatic bradycardia, history of atrial fibrillation, presyncopal episode. POSTPROCEDURE DIAGNOSES: Sick sinus syndrome with symptomatic bradycardia, history of atrial fibrillation, presyncopal episode. DESCRIPTION OF PROCEDURE: Left infraclavicular area was prepped and draped in the usual fashion. Two separate accesses were obtained in the left subclavian vein. Two micropuncture wires were placed in the left subclavian and subsequently replaced with two J-wires. A horizontal incision was placed in the left infraclavicular area. Using blunt dissection and electrocautery, subcutaneous prepectoral pacemaker pocket was fashioned. External ends of J wires were retrieved into the pacemaker pocket and two 7-Sinhala sheaths were advanced over the J-wires. Through one of them, RV lead was advanced to the RV apex. RV apex have appropriate pacing and sensing thresholds obtained lower interventricular septum, appropriate pacing and sensing thresholds were obtained. Sheath removed by peel-away technique and lead anchored to subcutaneous tissue with Ethibond. Through the second 7-Sinhala sheath, atrial lead advanced to right atrial right atrial appendage; however, his right atrium could not be paced. There appeared to be atrial standstill. Pacemaker is a very small. Sheath removed by peel-away technique. The lead anchored to the subcutaneous tissue with Ethibond. The pocket was then irrigated with copious antibiotic solution. Leads were connected to the appropriate socket of the pulse generator. Set screws were tightened. Tug test performed. The pacemaker was suspended into the pacemaker pocket. The pocket was closed with continuous 0 Vicryl and followed by interrupted 2-0 Vicryl applied, third layer of interrupted 2-0 Vicryl applied. Skin approximated with nayla. Pressure dressing applied. TECHNICAL INFORMATION: Device used NovaTorque, MRI compatible model #W3DR01. Serial #[id number], left pectoral location. RIGHT ATRIAL LEAD: Model #4076, 52 cm long, serial #[id number], right atrial appendage, very small, could not be seen. RV LEAD: Model #5076, 58 cm long, serial #[id number], interventricular septum. R-wave amplitude of 4.3 millivolts, ohms of impedance, pacing threshold of 0.75 volt at 0.4 milliseconds. IMPRESSION: A 74-year-old male with sick sinus syndrome with atrial fibrillation with presyncopal episode and symptomatic bradycardia, underwent successful AV sequential placement implantation with no complications. MARBIN Cordon MD TID: [id number] RECEIPT: [id number] MARQUIS/RUMA/SAMIRA cc: [facility]
== END 2024-11-27 13:48 | disposition home health service (06) | DRG 242 ==
LOC: ER 14:11 → ED HOLD 17:12 → EDBEDREQ 20:28 → PCU 3S 21:59
PROVIDERS: ADMIT Internal Medicine; ATTEND Internal Medicine
PROC: 0JH606Z Insertion of Pacemaker, Dual Chamber into Chest Subcutaneous Tissue and Fascia, Open Approach (ICD-10-PCS; principal; 2024-11-26)
PROC: 02H63JZ Insertion of Pacemaker Lead into Right Atrium, Percutaneous Approach (ICD-10-PCS; 2024-11-26)
PROC: 02HK3JZ Insertion of Pacemaker Lead into Right Ventricle, Percutaneous Approach (ICD-10-PCS; 2024-11-26)
DX: I49.5 Sick sinus syndrome (principal); I21.A1 Myocardial infarction type 2; I50.33 Acute on chronic diastolic (congestive) heart failure; I11.0 Hypertensive heart disease with heart failure; J44.9 Chronic obstructive pulmonary disease, unspecified; F32.A Depression, unspecified; I25.10 Atherosclerotic heart disease of native coronary artery without angina pectoris; E78.5 Hyperlipidemia, unspecified; F39 Unspecified mood [affective] disorder; E11.40 Type 2 diabetes mellitus with diabetic neuropathy, unspecified; G47.33 Obstructive sleep apnea (adult) (pediatric); I48.91 Unspecified atrial fibrillation; G25.81 Restless legs syndrome; F10.10 Alcohol abuse, uncomplicated; Z88.8 Allergy status to other drugs, medicaments and biological substances; Z79.84 Long term (current) use of oral hypoglycemic drugs; Z79.899 Other long term (current) drug therapy
CPT/HCPCS: 33208; 36415; 71045; 72074; 72110; 76700; 80048; 80053; 80061; 81003; 82570; 82948; 82977; 83036; 83735; 83880; 83930; 83935; 84133; 84300; 84484; 85007; 85025; 87081; 87207; 93005; 93306; 96372; 99152; 99153; 99285; A4565; A4615; A6258; C1785; C1898; G0378; J0690; J1200; J1644; J1815; J1938; J2250; J2270; J3010; J3373; J3490; J7030; Q9967

== ENCOUNTER 2025-01-09 11:05 | Inpatient (IN) | payer OTHER, MEDICARE ==
[~2025-01-09] VITALS: Ht 182.9 cm; Wt 87.7 kg
[~2025-01-09 11:05] MED LIST changes: -ACET-2615 PO; +ALBU8HFA INH; +AMLO10TA53 PO; +BUPR150T8 PO; +CEPH-585 PO; +CHLO25TA10 PO; -CHOL10008 PO; -FERR325T32 PO; -FLEC100T2 PO; +FURO20TA4 PO; -FURO40TA4 PO; +HYDR-3964 PO; +HYDR71PA TP; -INSU100C4 SQ; +KEN0.1O TOP; +LIDO1ADH67 TOP; +LOSA-415 PO; -LOSA25TA41 PO; +NOVLG SQ; -POTA10TA15 PO; -ROPI0.5T PO; +ROPI0.5T37 PO; +SEMA1PEN3 SUBCUT; -VERA120T2 PO
--- NOTE | 2025-01-09 12:10 | RADIOLOGY REPORT ---
INDICATION: LOWER BACK PAIN COMPARISON: DI LUMBAR SPINE COMPLTE on DOS: 11/26/24, DI THORACIC SPINE COMPLETE on DOS: 11/26/24 TECHNIQUE: 4 views of the lumbar spine were obtained. FINDINGS: Moderate multilevel degenerative disc disease of the lumbosacral spine. No acute fracture, vertebral compression deformity or aggressive osseous lesions. The paravertebral soft tissues are grossly unremarkable. Atherosclerotic vascular disease of the abdominal aorta. IMPRESSION: No acute fracture.
--- NOTE | 2025-01-09 13:48 | Physician Documentation ---
History of Present Illness ~ Chief Complaint: Back Pain Stated Complaint: LOW BACK PAIN Time Seen by MD: 13:39 OK to notify your PCP?: Yes Primary Medical Doctor: [facility] Dr. Daugherty Source: patient, RN/MD, RN notes reviewed, old records Mode of Arrival: POV, Wheelchair Exam Limitations: no limitations HPI This pleasant [facility] of the liver and the lumbar spine. MRI of the liver is because of abnormal labs, MRI of the spine is because the patient may have cauda equina syndrome. As far as the liver MRI there is no report of any mass prior ultrasound is negative. Patient was told it is due to laboratory work and reviewed the patient's online laboratory work from the [facility] and the patient recently has been having and alk-phos increasing significantly but all other LFTs bilirubin were all within normal limits. Patient has not had any PSA studies. As far as the spine and cauda equina there were no rectal exam done on the patient there was no reflex or cremasteric exam done on the patient. Patient presents with chronic pain for which he was told he needed surgery 20 years ago but refused to have it in his has been suffering since but it is now to the point where he is on high dose narcotics and immobile and in severe pain. Patient denies any bowel or bladder incontinence. He has soiled himself but that is because he can not make it to the bathroom in time because his pain is severe and he walks very slowly and then he has he does not make it in time. Patient did have a bladder scan and he had postvoid residuals of 180. Patient is now here for evaluation he states his pain is just severe lower lumbar area, bilateral movement makes it worse he is just uncomfortable. Medication Reconciliation Allergies: Coded Allergies: lisinopril (Verified Allergy, Unknown, Coughing, 01/09/25) lorazepam (Unverified Allergy, Unknown, 01/09/25) Scheduled Amitriptyline Hcl (Amitriptyline Hcl), 12.5 MG PO HS, (Reported) Amlodipine Besylate (Amlodipine Besylate), 1 TAB PO QPM, (Reported) Atorvastatin Calcium* (Lipitor*), 2 TABLET PO HS, (Reported) Bupropion Hcl SR* (Wellbutrin SR*), 1 TAB PO Q12H, (Reported) Chlorthalidone (Chlorthalidone), 1 TAB PO BID, (Reported) Dabigatran (PRADAXA capsule), 1 CAP PO BID, (Reported) Diclofenac Sodium (Voltaren), 2 GM TOP Q6H, (Reported) Docusate Sodium (Col-Rite), 1 CAPSULE PO DAILY, (Reported) Gabapentin (Gabapentin), 1 CAP PO TID, (Reported) Insulin Glargine,Hum.rec.anlog (Lantus), SQ BID, (Reported) Lidocaine (Lidocaine Pain Relief), 1 PATCH TOP DAILY, (Reported) Losartan Potassium* (Cozaar*), 4 TAB PO DAILY, (Reported) Magnesium Oxide (Magnesium Oxide), 1 TAB PO Q12H, (Reported) Metformin HCl (Metformin HCl), 1 TAB PO Q12H, (Reported) [place]-3 Fatty Acids/Fish Oil (Fish Oil 1,000 mg Capsule), 1 CAP PO DAILY, (Reported) Omeprazole (Omeprazole), 40 MG PO DAILY, (Reported) Ropinirole Hcl (Ropinirole Hcl), 1 TAB PO HS, (Reported) Semaglutide (Ozempic), 1 MG SUBCUT Q7D, (Reported) Tiotropium Br/Olodaterol HCl (Stiolto Respimat Inhal [place]), 2 PUFFS IH DAILY, (Reported) Vitamin B Complex (B Complex), 1 EACH PO DAILY, (Reported) Scheduled PRN Hydrocodone Bit/Acetaminophen (Hydrocodon-Acetaminophen 5-325), 1 TAB PO Q4H PRN for pain, (Reported) Nitroglycerin (Nitroglycerin), 0.4 MG SL PRN PRN for chest pain, (Reported) albuterol inhaler (Pro-Air Inhaler), 2 PUFFS INH Q6H PRN for wheezing, (Reported) Miscellaneous Medications Berberine Chloride (Berberine), (Reported) Furosemide (Lasix), 20 MG PO, (Reported) Insulin Aspart (Novolog), 100 UNIT SQ, (Reported) Discontinued Medications Cephalexin*Monohydrate* (Keflex*), 500 MG PO TID Discontinued Reason: completed med therapy Furosemide (Furosemide), 1 TAB PO DAILY Discontinued Reason: patient no longer taking Hydrophilic Cream (Triad), 71 GM TP, (Reported) Discontinued Reason: patient no longer taking Triamcinolone Acetonide 0.1% Crm* (Kenalog 0.1% Crm*), 1 APPLIC TOP Q12H, (Reported) Discontinued Reason: patient no longer taking Past Medical History Past Medical History: Atrial Fibrillation, Congestive Heart Failure, Hypertension, COPD, Chronic Back Pain Past Surgical History: noncontributory Patient History: FH: cancer sister brother Alcohol Use: None Drug Use: none Lives with: Spouse Lives In: Home Occupation: retired Review of Systems All Other Systems at this time: Reviewed and Negative Physical Exam Physical Exam Vital Signs: RN Vital Signs have been reviewed: Yes, Temperature: 97.9, Heart Rate: 60, Respiratory Rate: 18, BP: 113/56, Pulse Oximetry: 96, Weight: 87.700 Oxygen Flow Rate: 2.0 Physical Exam General: The patient is well developed, well nourished, nontoxic appearing and is in moderate acute distress. Skin: [place], warm and dry with no rashes. HEENT: Head was normocephalic and atraumatic. Eyes - pupils equal, round, reactive to light and accommodation. Extraocular movements were intact. Conjunctivae were nonicteric. The mouth and oropharynx were clear with moist mucous membranes. There were no pharyngeal exudates or erythema. Neck: Supple and nontender. There was no jugular venous distention, lymphadenopathy, thyromegaly or masses. Chest: Clear to auscultation bilaterally without wheezes, rales or rhonchi. No accessory muscle use. No dullness to percussion. Heart: Rate regular and rhythmic. S1, S2. No murmurs. Palpation of the chest wall was normal. No rubs or thrills. Abdomen: Soft, nontender and nondistended. Positive bowel sounds. No guarding or rebound. No hepatosplenomegaly or palpable masses. Back: Normal rectal tone no fissures no masses Extremities: No cyanosis, clubbing or edema. The patient moves all extremities. Pulses were equal and symmetric. Neurologic: Sensation was intact to light touch throughout. Motor strength was 5/5 in all four extremities. Deep tendon reflexes were intact in both upper and lower extremities. Patellar reflex slightly decreased on the left compared to the right. Positive rectal tone Psychologic: The patient was oriented to person, place and time. The patient demonstrated appropriate judgement and insight. Progress Results/Orders Reviewed/noted all lab results: Yes Results/Orders Orders - PEÑA,PARMJIT S MD Lumbar Spine Limited (01/09/25 11:08) Cbc/Diff (01/09/25 14:15) Saline Lock (01/09/25 14:15) Psa Total+% Free (01/09/25 14:34) Ct Abdomen Pelvis (01/09/25 15:09) Ct Lumbar Spine (01/09/25 15:12) Mri Lumbar Spine (01/09/25 14:41) Mri Thoracic Spine (01/09/25 ) Man Diff (01/09/25 14:31) Pathology Review (01/09/25 14:31) Page Hospitalist (01/09/25 18:49) Fill Out Med Reconciliation (01/09/25 18:49) * Activity * (01/09/25 19:21) * Vital Signs - Post Op* Q1H (01/09/25 19:21) Myelogram Lumbar (01/10/25 ) Myelogram Thoracic (01/10/25 ) Ct Lumbar Spine (01/10/25 12:30) Ct Thoracic Spine (01/10/25 12:00) Completed Orders - PARMJIT PEÑA MD Lumbar Spine Limited (01/09/25 11:08) Lipase (01/09/25 14:15) Hydromorphone 1 Mg/Ml/Pf (Dilaudid Inj.) (01/09/25 14:15) CMP (01/09/25 14:15) Ct Abdomen Pelvis (01/09/25 15:09) Ct Lumbar Spine (01/09/25 15:12) Hydromorphone 1 Mg/Ml/Pf (Dilaudid Inj.) (01/09/25 17:20) Hydromorphone 1 Mg/Ml/Pf (Dilaudid Inj.) (01/09/25 18:50) Medications Received in ER Medications (Trade) Dose Ordered Sig/Jonel Route PRN Reason Start Time Stop Time Status Last Admin Dose Admin (Dilaudid inj.) 1 mg ONCE ONCE IV 01/09/25 14:15 01/09/25 14:17 DC 01/09/25 14:46 1 MG (Dilaudid inj.) 1 mg ONCE ONCE IV 01/09/25 17:20 01/09/25 17:21 DC 01/09/25 17:24 1 MG (Dilaudid inj.) 1 mg ONCE ONCE IV 01/09/25 18:50 01/09/25 18:56 DC 01/09/25 19:06 1 MG Vital Signs 01/09/25 01/09/25 01/09/25 01/09/25 11:10 11:57 12:00 13:00 Temp 97.9 Pulse 66 68 60 Resp 16 20 18 B/P (MAP) 106/47 110/54 (72) 113/56 (75) Pulse Ox 97 95 96 O2 Flow Rate 0 2.0 01/09/25 01/09/25 01/09/25 01/09/25 14:00 15:00 16:00 17:00 Pulse 66 65 93 65 Resp 18 20 18 18 B/P (MAP) 133/65 (87) 105/55 (72) 105/55 (72) 107/62 (77) Pulse Ox 96 94 95 95 O2 Flow Rate 3.0 0 0 3.0 01/09/25 01/09/25 01/09/25 01/09/25 18:00 18:23 19:06 19:15 Temp 97.6 Pulse 63 68 Resp 18 18 18 16 B/P (MAP) 103/58 (73) 98/54 (69) Pulse Ox 95 93 O2 Flow Rate 3.0 0 01/09/25 19:18 Resp 20 Laboratory Tests Test 01/09/25 14:31 01/09/25 14:51 White Blood Count 7.4 Red Blood Count 3.20 L Hemoglobin 8.9 L Hematocrit 27.2 L Mean Corpuscular Volume 84.9 Mean Corpuscular Hemoglobin 27.9 Mean Corpuscular Hemoglobin Concent 32.8 L Red Cell Distribution Width 21.7 H Platelet Count 59 L Mean Platelet Volume 7.8 Neutrophils (%) (Auto) Lymphocytes (%) (Auto) Monocytes (%) (Auto) Eosinophils (%) (Auto) Basophils (%) (Auto) Neutrophils # (Auto) Lymphocytes # (Auto) Monocytes # (Auto) Eosinophils # (Auto) Basophils # (Auto) CBC Comment Differential Total Cells Counted 100 Neutrophils % (Manual) 50.0 Band Neutrophils % 21.0 H Lymphocytes % (Manual) 14.0 L Monocytes % (Manual) 12.0 Eosinophils % (Manual) 1.0 Metamyelocytes % 2.0 H Nucleated Red Blood Cells 11 H Platelet Estimate Decreased Red Blood Cell Morphology Perf Polychromasia Few Basophilic Stippling Anisocytosis 3+ Tear Drop Cells Few Stomatocytes Few Elliptocytes Few Acanthocytes Few Sodium Level 139 Potassium Level 3.6 Chloride Level 101 Carbon Dioxide Level 28.1 Anion Gap 10 Blood Urea Nitrogen 41 H Creatinine 1.30 H Estimated GFR/1.73 m2 54 BUN/Creatinine Ratio 31.5 H Glucose Level 64 L Calcium Level 8.4 L Total Bilirubin 0.6 Aspartate Amino Transf (AST/SGOT) 129 H Alanine Aminotransferase (ALT/SGPT) 24 Alkaline Phosphatase 744 H Total Protein 7.2 Albumin 2.7 L Globulin 4.5 H Albumin/Globulin Ratio 0.6 L Lipase 24 Chemistry Comments Re-Evaluation Re-Evaluation : Re-Evaluation: Improved Progress Patient is does not have cauda equina based on physical exam. However his pain is increasing dramatically. He is also having elevation alk-phos which is concerning for metastatic disease most likely secondary to prostate disease in his age group. PSA was ordered. Review of the medical record did not show any PSA screening tests done in the last several years. Pain is also increasing he is losing weight but has chronic pain issues he also has bulging disc and disease and may need injections for pain management. Attempts were made to make an MRI potentially could be done on an outpatient basis cat scan was obtained which showed the possibility of some metastatic lesions. Unfortunately the patient has chronic back disease and metastatic disease as well. Patient has been receiving multiple doses of Dilaudid and will be admitted for pain management. I discussed the case with Neurosurgery regarding the disc disease and temporizing measures for pain. Myelogram was going to be obtained tomorrow. The case was also discussed with the radiology department, radiology t echnicians, as well as the hospitalist who ultimately will help manage the patient. Patient's laboratory work shows some anemia with a hemoglobin of 8.9 hematocrit 27.2 platelets of 59. Patient has 21 bands 50 neutrophils. To metamyelocytes. Chemistry shows a BUN of 41 creatinine 1.30 some mild dehydration. Alk-phos is elevated at 744. Otherwise AST 129 ALT 24 bilirubin 0.6 albumin is low at 2.7 consistent with some protein malnutrition. Continuous color television console monitor interpretation shows normal sinus rhythm heart rate 60s, no ectopy, normal, my interpretation. Pulse oximetry monitor interpretation shows normal oxygenation at 97% room air, normal, my interpretation. EKG/XRAY/CT/US/VASC/MRI Bone/Soft Tissue X-Ray (Spine) : Interpreted By: radiologist Indication: pain Location: lumbar spine Additional Comment INDICATION: LOWER BACK PAIN COMPARISON: DI LUMBAR SPINE COMPLTE on DOS: 11/26/24, DI THORACIC SPINE COMPLETE on DOS: 11/26/24 TECHNIQUE: 4 views of the lumbar spine were obtained. FINDINGS: Moderate multilevel degenerative disc disease of the lumbosacral spine. No acute fracture, vertebral compression deformity or aggressive osseous lesion s. The paravertebral soft tissues are grossly unremarkable. Atherosclerotic vascular disease of the abdominal aorta. IMPRESSION: No acute fracture. Electronically Signed by:SALBADOR DUNN MD Date & Time: 01/09/251206 Dictated by: SALBADOR DUNN MD Dictation date and time: 01/09/25 120 Primary Care Provider: NO PRIMARY CARE PROVIDER CT #1: CT: L-spine With Contrast?: No Impression EXAM: CT CT LUMBAR SPINE INDICATION: pain TECHNIQUE: Axial images of the lumbar spine have been obtained along with coronal and sagittal reformatted images. CT scans at this facility use dose modulation, iterative reconstruction, and/or weight based dosing when appropriate to reduce radiation dose to as low as reasonably achievable. COMPARISON: DI LUMBAR SPINE LIMITED on DOS: 01/09/25 FINDINGS: ANATOMY: Five lumbar-type vertebral bodies are present. The most inferior well- formed disc space will be referred to as L5-S1 for purposes of numbering in this report. VERTEBRAL BODIES: Diffuse osseous metastatic disease without evidence of pathologic fracture. Pathologic osseous lucency measuring up to 2.5 cm of the anterior aspect of the L4 vertebral body. SPINAL CANAL: No spinal canal narrowing. INTERVERTEBRAL DISCS: Small area of broad-based posterior disc protrusion at L3- 4 and L4-5 with the associated vacuum phenomenon. FACETS: Multilevel mild to moderate facet arthropathy. Bony foraminal narrowing at L4-5 and L3-4, moderate to severe OTHER: Diffuse osseous sclerosis of the visualized pelvis. IMPRESSION: 1. Diffuse osseous metastatic disease without evidence of pathologic fracture. 2. No CT evidence of an acute fracture. Broad-based posterior disc protrusion measuring 2-3 mm at L3-4 and L4-5 with Electronically Signed by:FABRIZIO SILVER MD CT #2: CT: abdomen/pelvis With Contrast?: No Impression Indication: ABD PAIN, liver pain Technique: CT axial images of the abdomen and pelvis are obtained without contrast. Coronal and sagittal reformats were obtained. Radiation Dose Information: CTDI volume is 34 mGy. Dose-length product is 1677 mGy*cm Comparison: None FINDINGS: There is limited interpretation of the abdomen and pelvis without administration of intravenous contrast. Borderline cardiomegaly. Small pericardial effusion. Bilateral atelectasis. Adrenal glands, spleen unremarkable. Fatty infiltration pancreas. Cholelithiasis with hydropic/Distended gallbladder. Liver unremarkable in shape. Kidneys demonstrate no hydronephrosis /nephrolithiasis. Stomach partially distended. Small bowel loops are moderately distended. Large volume stool throughout the colon. No secondary signs for appendicitis. Abdominal aortic atherosclerotic disease. Periaortic/retroperitoneal lymph nodes measuring up to 1.8 cm. Bladder partially distended. No free pelvic fluid. No inguinal lymphadenopathy. Diffuse osseous sclerosis subacute/ old posterior right 10th and 11th rib fractures. Moderate thoracolumbar degenerative disc disease. IMPRESSION: Limited evaluation without contrast. Diffuse axial, appendicular skeleton osteoblastic metastatic disease. Recommend oncology consultation. Large volume stool throughout the colon. Cholelithiasis and Distended gallbladder. If there is concern for cholecystitis recommend HIDA scan. Atherosclerotic disease. Retroperitoneal lymphadenopathy up to 1.8 cm, possibly malignant in etiology. Electronically Signed by:JESSY SARMIENTO MD Date & Time: 01/09/25 1542 Dictated by: JESSY SARMIENTO MD Dictation date and time: 01/09/25 1509 Primary Care Provider: NO PRIMARY CARE PROVIDER cc: PARMJIT PEÑA MD ~ Medical Decision Making Additional information obtaine: old records Findings Prostate cancer metastatic disease was considered and negative workup for quad equina or acute neurological emergency Differential Dx:Considerations: DJD, Fracture, Musculoskeletal pain, Pancreatitis, Pyelonephritis, Strain, Urinary obstruction, Renal infarction, Urinary tract infection, Other Departure Disposition: 09 ADMITTED INPATIENT Admitted to Inpatient Unit: to hospitalist, other (Neurosurgeon) Admission Level of Care: Neuro with Tele Impression: Primary Impression: Intractable low back pain Additional Impression: Disc disease, degenerative, lumbar or lumbosacral Qualified Codes: M51.370 - Other intervertebral disc degeneration, lumbosacral region with discogenic back pain only Condition: Guarded Referrals: NO PRIMARY CARE PROVIDER (PCP) Education Educated: Patient Educated regarding: diagnosis, prognosis, need for follow up, other Signature Scribe Signature: No scribed Attestation: The note accurately reflects work and decisions made by me.Parmjit Peña MD 01/09/25 13:48 PARMJIT PEÑA MD Jan 09, 2025 13:48
[2025-01-09 14:54] LABS: MEAN PLATELET VOLUME 7.8 FL (7.4-10.4); RED CELL DISTRIBUTION WIDTH 21.7 % (11.5-14.5)
[2025-01-09 15:08] LABS: CREATININE 1.30 MG/DL (0.60-1.10); TOTAL CARBON DIOXIDE 28.1 MMOL/L (24-32); eCRCL 55 ML/MIN; eGFR 54 ML/MIN
[2025-01-09 15:25] LABS: BANDS% (MANUAL) 21.0 % (0-10); EOSINOPHILS % (MANUAL) 1.0 % (0-6); LYMPHOCYTES % (MANUAL) 14.0 % (21-51); METAMYLEOCYTES% (MANUAL) 2.0 % (0-0); MONOCYTES % (MANUAL) 12.0 % (2-12); NEUTROPHILS % (MANUAL) 50.0 % (42-75); NUCLEATED RED BLOOD CELLS 11 /100WBC (0-0); PLATELET ESTIMATE DECREASED
[2025-01-09 15:29] LABS: ELLIPTOCYTES FEW
--- NOTE | 2025-01-09 15:40 | RADIOLOGY REPORT ---
EXAM: CT CT LUMBAR SPINE INDICATION: pain TECHNIQUE: Axial images of the lumbar spine have been obtained along with coronal and sagittal reformatted images. CT scans at this facility use dose modulation, iterative reconstruction, and/or weight based dosing when appropriate to reduce radiation dose to as low as reasonably achievable. COMPARISON: DI LUMBAR SPINE LIMITED on DOS: 01/09/25 FINDINGS: ANATOMY: Five lumbar-type vertebral bodies are present. The most inferior well- formed disc space will be referred to as L5-S1 for purposes of numbering in this report. VERTEBRAL BODIES: Diffuse osseous metastatic disease without evidence of pathologic fracture. Pathologic osseous lucency measuring up to 2.5 cm of the anterior aspect of the L4 vertebral body. SPINAL CANAL: No spinal canal narrowing. INTERVERTEBRAL DISCS: Small area of broad-based posterior disc protrusion at L3- 4 and L4-5 with the associated vacuum phenomenon. FACETS: Multilevel mild to moderate facet arthropathy. Bony foraminal narrowing at L4-5 and L3-4, moderate to severe OTHER: Diffuse osseous sclerosis of the visualized pelvis. IMPRESSION: 1. Diffuse osseous metastatic disease without evidence of pathologic fracture. 2. No CT evidence of an acute fracture. Broad-based posterior disc protrusion measuring 2-3 mm at L3-4 and L4-5 with
--- NOTE | 2025-01-09 15:41 | RADIOLOGY REPORT ---
Indication: ABD PAIN, liver pain Technique: CT axial images of the abdomen and pelvis are obtained without contrast. Coronal and sagittal reformats were obtained. Radiation Dose Information: CTDI volume is 34 mGy. Dose-length product is 1677 mGy*cm Comparison: None FINDINGS: There is limited interpretation of the abdomen and pelvis without administration of intravenous contrast. Borderline cardiomegaly. Small pericardial effusion. Bilateral atelectasis. Adrenal glands, spleen unremarkable. Fatty infiltration pancreas. Cholelithiasis with hydropic/Distended gallbladder. Liver unremarkable in shape. Kidneys demonstrate no hydronephrosis /nephrolithiasis. Stomach partially distended. Small bowel loops are moderately distended. Large volume stool throughout the colon. No secondary signs for appendicitis. Abdominal aortic atherosclerotic disease. Periaortic/retroperitoneal lymph nodes measuring up to 1.8 cm. Bladder partially distended. No free pelvic fluid. No inguinal lymphadenopathy. Diffuse osseous sclerosis subacute/ old posterior right 10th and 11th rib fractures. Moderate thoracolumbar degenerative disc disease. IMPRESSION: Limited evaluation without contrast. Diffuse axial, appendicular skeleton osteoblastic metastatic disease. Recommend oncology consultation. Large volume stool throughout the colon. Cholelithiasis and Distended gallbladder. If there is concern for cholecystitis recommend HIDA scan. Atherosclerotic disease. Retroperitoneal lymphadenopathy up to 1.8 cm, possibly malignant in etiology.
[2025-01-09] MEDS ORDERED: FURO-150 PO (19:23)
[2025-01-09] MEDS ORDERED: BERB500C (19:28)
[2025-01-09] MEDS ORDERED: magnesium hydroxide 30ml (MOM) UD suspension PO PRN (20:20)
[2025-01-09] MEDS ORDERED: magnesium sulf-water 4G/100mL 100 ML IV PRN (20:20)
[2025-01-09] MEDS ORDERED: magnesium sulf-water 2g/50mL 50 ML IV PRN (20:20)
[2025-01-09] MEDS ORDERED: ondansetron/PF 4mg/2ml inj IV PRN (20:20)
[2025-01-09] MEDS ORDERED: potassium Cl 20 mEq SR tablet PO PRN ×2 (20:20)
[2025-01-09] MEDS ORDERED: mag hydrox/Alum hydrox/simeth 30ml oral suspension PO PRN (20:20)
[2025-01-09] MEDS ORDERED: potassium Cl 40MEQ/1/2NS 520ml 520 ML IV PRN (20:20)
[2025-01-09] MEDS ORDERED: magnesium Cl slow-release 64mg tablet PO PRN (20:20)
[2025-01-09] MEDS ORDERED: glucagon, human recombinant 1mg kit SUBCUT PRN (21:00)
[2025-01-09] MEDS ORDERED: DEXTROSE 15 GM of carb/4 tabs (each vial/BOTTLE has 4 tablets) PO PRN ×2 (21:00)
[2025-01-09] MEDS ORDERED: dextrose 50%-water 50ml dispensing syringe IV PRN ×2 (21:00)
[2025-01-09] MEDS: INSULIN LISPRO 100 UNIT/ML INSULN.PEN MULTI-DOSE SQ SCH (21:00)
[2025-01-09 21:06] LABS: APTT 47 SECONDS (22-32); INR 1.3 INR
[2025-01-09] MEDS ORDERED: ipratropium/albuterol 3ml nebule NEB PRN (21:20)
[2025-01-09] MEDS ORDERED: non-formulary drug (albuterol inhaler (Pro-Air Inhaler) 2 PUFFS) INH PRN (21:20)
[2025-01-09] MEDS ORDERED: albuterol 2.5 MG/3 ML nebule NEB PRN (21:20)
--- NOTE | 2025-01-09 21:28 | HISTORY AND PHYSICAL-Residence ---
History & Physical Providers to CC Resident Creating Document: LAY CONNOLLY, RES CC: KANWAL KIMBALL MD ~ History of Present Illness Primary Medical Doctor: [facility] Dr. Daugherty Reason for Admit\Complaint: Intractable low back pain History of Present Illness A 74-year-old with a medical history that includes a permanent pacemaker placement for bradycardia, atrial fibrillation, congestive heart failure, diabetes mellitus type 2, and chronic back pain presented to the emergency department (ED) with chief complaints of excruciating back pain, which has been aggravated for the last two weeks. The patient typically visits the [facility] chiropractor for his low back pain, and during his appointment today, they advised him to go to the ED due to concerns that he may be experiencing cauda equina syndrome. The patient reported that he has been unable to walk and has relied on a walker for the past two weeks. He has also found it difficult to ambulate to the restroom due to severe pain in his back, which radiates to both of his lower extremities. As a result of this pain, he has been using adult diapers for the last two weeks. 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 He also mentioned that he has lost a few pounds over the last two months but is unsure of the exact amount. In the ED, Dr. Peña admitted the patient for evaluation of elevated alkaline phosphatase levels and possible cauda equina syndrome. He consulted neurosurgeon Dr. Thomas Ernandez regarding a possible myelogram, as the patient cannot undergo an MRI due to his pacemaker. Although the pacemaker may be compatible, MRI technicians were not available to confirm its compatibility. Additionally, I had a lengthy conversation with the patients over the phone. She corroborated the patients account and added that he had fallen about two weeks ago, injuring his right shoulder, which has also caused him pain. Recent admission 11/24/2024 His heart rate was in the 30s40s, and telemetry revealed a junctional rhythm with right bundle-branch block. Given his symptomatic bradycardia and persistent junctional rhythm, cardiology (Dr. Ezio Yeager) was consulted, and the patient underwent successful permanent pacemaker placement on 11/26/2024. Patient lives in his house with his Patient's primary care doctors from [facility] Patient's pier hand helper is Dr. 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 Allergies: Coded Allergies: lisinopril (Verified Allergy, Unknown, Coughing, 01/09/25) lorazepam (Unverified Allergy, Unknown, 01/09/25) Home Medications Home Medications Active Reported Berberine (Berberine Chloride) 500 Mg Capsule Lasix (Furosemide) 20 Mg Tablet 20 Mg PO Ozempic (Semaglutide) 1 Mg/0.75 Ml (4 Mg/3 Ml) Pen.injctr 1 Mg SUBCUT Q7D 30 Days Ropinirole Hcl 0.5 Mg Tablet 1 Tab PO HS 30 Days Cozaar* (Losartan Potassium) 25 Mg Tablet 4 Tab PO DAILY 30 Days Lidocaine Pain Relief (Lidocaine) 4 % Adh..patch 1 Patch TOP DAILY 30 Days Novolog (Insulin Aspart) 100 Unit/Ml (3 Ml) Insuln.pen 100 Unit SQ Hydrocodon-Acetaminophen 5-325 (Hydrocodone Bit/Acetaminophen) 5 Mg-325 Mg Tablet 1 Tab PO Q4H PRN 5 Days Chlorthalidone 25 Mg Tablet 1 Tab PO BID 30 Days Wellbutrin SR* (Bupropion HCl) 150 Mg Tablet.sa 1 Tab PO Q12H 30 Days LOOK-ALIKE SOUND-ALIKE DRUG buSPIRone & buPROPion Pro-Air Inhaler (Albuterol) 8.5 Gm Inhaler 2 Puffs INH Q6H PRN 30 Days Amlodipine Besylate 10 Mg Tablet 1 Tab PO QPM 30 Days Voltaren (Diclofenac Sodium) 100 Gm Gel..gram. 2 Gm TOP Q6H Nitroglycerin 0.4 Mg Tab.subl 0.4 Mg SL PRN PRN Lantus (Insulin Glargine,Hum.rec.anlog) 100 Unit/1 Ml Vial SQ BID Stiolto Respimat Inhal [place] (Tiotropium Br/Olodaterol HCl) 4 Gm Mist.inhal 2 Puffs IH DAILY Col-Rite (Docusate Sodium) 100 Mg Capsule 1 Capsule PO DAILY Lipitor* (Atorvastatin Calcium) 20 Mg Tablet 2 Tablet PO HS Metformin HCl 1,000 Mg Tablet 1 Tab PO Q12H 30 Days Omeprazole 20 Mg Tablet.dr 40 Mg PO DAILY 30 Days Magnesium Oxide 400 Mg Tablet 1 Tab PO Q12H 30 Days Gabapentin 300 Mg Capsule 1 Cap PO TID B Complex (Vitamin B Complex) 1 Each Tablet 1 Each PO DAILY PRADAXA capsule (Dabigatran) 150 Mg Capsule 1 Cap PO BID Fish Oil 1,000 mg Capsule ([place]-3 Fatty Acids/Fish Oil) 1 Each Capsule 1 Cap PO DAILY Amitriptyline Hcl (Amitriptyline HCl) 25 Mg Tablet 12.5 Mg PO HS Past Medical History Past Medical History Bradycardia this post dual-chamber pacemaker on 11/26/2024 Chronic low back pain Hypertension CAD Hyperlipidemia Chronic congestive heart failure with hyperdynamic ejection fraction Atrial fibrillation Diabetes mellitus type 2 COPD Chronic kidney disease Past Surgical History Surgical History Comment Bilateral shoulder replacements Hernial repair Family History Family History: FH: cancer sister brother Past Social History Social History Comment Patient used to smoke a pack of cigarettes for almost 40 years, quit smoking 10 years ago Occasional alcohol use Denies any other illicit drug use Alcohol Use: None Drug Use: None Lives with: Spouse Lives In: Home Occupation: retired ROS All Other Systems: Reviewed and Negative ROS Constitutional: No fever, dizziness, noted weakness, decrease in appetite HEENT: Normal vision. No sore throat, epistaxis, tinnitus Cardiovascular: No chest pain/discomfort, palpitations, syncope. no pedal edema Respiratory: No sob, cough,hemoptysis Gastrointestinal: No abdominal pain, nausea, vomiting. No diarrhea, melena. Genitourinary: No frquency, urgency, incontinence, nocturia. No dysuria, hematuria Musculoskeletal: Excruciating back pain Endocrine: No fatigue, polydipsia, polyuria. No heat or cold intolerance Neurologic: No headache, vertigo. weakness noted in bilateral lower extremities, numbness or tingling of extremities Psychiatric: No hallucinations/delusions, no anhedonia, no suicidal ideation Hematologic: Bilateral lower extremity chronic venous stasis Exam Vitals: Vital Signs Date Time Temp Pulse Resp B/P (MAP) Pulse Ox O2 Delivery O2 Flow Rate FiO2 01/09/25 19:18 20 01/09/25 19:15 97.6 68 98/54 (69) 93 0 General: General: Awake, oriented to person, place and time, in extreme excruciating pain HEENT: Conjunctive are pale, sclerae clear, no icterus, pupil is equal in both sides, reactive to light, no ear discharge, no pharyngeal erythema or an edema. Neck: Supple, no JVD, no lymphadenopathy and thyromegaly. Chest: Equal air entry on both lungs, no additional sounds no rhonchi no wheezing at the moment. Cardiovascular: S1-S2 regular sinus rhythm and, regular rate, no gallops, no rubs, no murmurs Abdomen: No visible peristalsis, Bowel sounds present on auscultation, soft, no tenderness, no guarding, no rigidity. Apple shape body habitus Extremities: Accidental amputation of right hand, accidental short left hand ring finger, chronic venous stasis bilateral extremities, hallux valgus noted in bilateral lower toes, no pitting edema bilaterally, capillary refill intact, peripheral pulsations are intact on both sides Neurologic: Mental status: alert and conscious, oriented to place, person and time, preserved memory, normal speech. Cranial nerves I-XII: Normal. Motor system: Mild tremors noted in upper extremities, coordination intact, severely decreased strength in lower extremities 0/5, left upper extremity strength 4/5, right upper extremity strength 2/5(recent fall on right shoulder) Sensory system: Decreased temperature, pain sensation in bilateral lower extremities. Pressure sensation intact Diminished deep tendon reflexes in biceps, triceps, quadriceps. Negative Babinski. Cerebellar: No nystagmus, dysdiadochokinesia, normal cdzlls-al-hhun testing. Musculoskeletal: Severe back pain Skin: Warm and dry. Dry oral mucosa. Diagnostic Data Last Recorded Lab Results: 01/09/25 1431 01/09/25 1431 Advance Care Planning Advanced Care plannin - 30 Minutes (Spent 17 minutes discussing advanced care directive/resuscitative methods) Additional Plan Assessment:A 74-year-old with a medical history that includes a permanent pacemaker placement for bradycardia, atrial fibrillation, congestive heart failure, diabetes mellitus type 2, and chronic back pain presented to the emergency department (ED) with chief complaints of excruciating back pain, 1. Possible newly diagnosed metastatic cancer likely prostate cancer Intractable low back pain worsening for the last two weeks, in addition to loss of weight the last two months Initially thought to be cauda equina syndrome, ruled out- patient's rectal tone is intact l/patient denied any saddle anesthesia/bladder dysfunction/bowel dysfunction Lumbar spine x-ray was done, showed no acute fractures Lumbar spine CT reported Diffuse osseous metastatic disease without evidence of pathologic fracture. No CT evidence of an acute fracture. Broad-based posterior disc protrusion measuring 2-3 mm at L3-4 and L4-[address] Diffuse axial, appendicular skeleton osteoblastic metastatic disease. Retroperitoneal lymphadenopathy up to 1.8 cm, possibly malignant in etiology. Differentials for osteoblastic lesions include prostate cancer, carcinoid tumor, medulloblastoma, medullary thyroid cancer Significantly elevated alk-phos at 744 Patient has had a history of low back pain for the last 20 years, but continued to severely aggravated in the last two weeks Patient could not even go to the restroom because of the pain and he started using adult diapers Patient's home meds: Patient normally uses diclofenac gel, hydrocodone 5-325 mg p.r.n. and lidocaine patches p.r.n. Plan Initiated the patient on morphine p.r.n., [place] p.r.n. and lidocaine patches Dr. Thomas Ernandez was consulted by Dr. Peña, for initial suspicion of cauda equina syndrome and the possibility of getting a myelogram for AMPARO as patient can not get MRI I spoke with again and discussed patient's new pelvis CT developments,he suggested that patient would benefit from a biopsy by IR Initially, Dr. Thomas Ernandez instructed patient to be NPO after breakfast tomorrow so we can perform a myelogram, but he does not feel the need for a myelogram at this point Kindly touchbase with again in am Neuro checks in place 2.Severe peripheral neuropathy, chronic venous stasis Patient is a history of peripheral neuropathy for which he normally takes gabapentin Continued patient's home medication gabapentin 300 mg 3.H/O of symptomatic Bradycardia s/p dual pacemaker on 11/26/2024 Patient had symptoms of symptomatic bradycardia,dizziness and exertional tolerance Dr. Cordon placed a dual pacemaker in the patient Currently patient's heart rate is well controlled Plan Admit to telemetry for continuous monitoring Atropine PRN for symptomatic episodes Place pacer pads at bedside Hold AV nodalblocking agents/heart rate lowering medications 4.Chronic compensated heart failure with hyperdynamic ejection fraction Pulmonary Hypertension due to left heart disease 11/25/24 Echocardiogram reported: Overall systolic function is hyperdynamic. Flattened septum compatible with right heart voulume/pressure overload. LVEF is 75-80%. Right ventricle is moderate to severely dilated. The right ventricular systolic function is normal. RVSP of 88 mmHg. Left atrium is severely dilated. Patient does not appear fluid overload right now, no pedal edema, lungs sound clear Plan Continue to monitor fluid status Patient normally takes furosemide p.o. daily Awaiting med rec for furosemide 5.Chronic kidney disease stage IIIA Patient's baseline appears to be 1.30, his current creatinine is close to his baseline Continue to monitor his renal function does closely 6.Uncontrolled Diabetes mellitus type 2 On insulin aspart 100 units, Lantus 100 units, metformin 1000 mg and semaglutide 11/25/2024 A1c 8.5% Plan Initiated the patient on 20 units Lantus Initiated patient on insulin regimen with correctional/sliding scale inpatient based on blood sugars Blood sugar to be maintained maintained between 140-180 Hold semaglutide and metformin during admission 7.Chronic Atrial Fibrillation, rate controlled On dabigatran 150 mg BID for anticoagulation. Held patient's dabigatran at this point, as he might require surgery for his Diffuse osseous metastatic disease without evidence of pathologic fracture. Broad-based posterior disc protrusion measuring 2-3 mm at L3-4 and L4-5 Dr. Thomas Hanson is on board 8.Hypertension Patient's home medications amlodipine 10 mg, losartan 25 mg, chlorthalidone 25 mg, During this admission his blood pressure has been soft Plan: Help patient's blood pressure medication at this point, please consider restarting if patient's blood pressure increases 9.COPD, stable not in acute exacerbation On tiotropium/olodaterol inhaler and albuterol PRN. Patient is saturating at 94-95% on room air Plan Continue to maintain oxygen saturation 88-92% Initiate oxygen if patient's saturations dropped below 88% Continue patient's home inhalers Initiated patient on breathing treatments p.r.n. 10.Bicytopenia Normocytic hypochromic anemia-MCV 84, hemoglobin 8.9, hematocrit 27.2, RDW 12.7 Thrombocytopenia: Significant decrease in platelets compared to previous visit decreased from 201 to 59 Plan Ordered iron studies Close monitoring platelets count 11.Hyperlipidemia Continue atorvastatin 20 mg 12.Constipation Abdominal pelvis CT: Large volume stool throughout the colon. For the last two weeks, patient has not been able to ambulate with a restroom frequently, has been on pain medications and has been using adult diapers Multifactorial cause of constipation Bowel care in place Initiated the patient on one dose Dulcolax suppository 13.Cholelithiasis and distended gallbladder as per abdominal pelvis CT Patient has no acute abdominal pain/Ocasio sign negative/bilirubin normal limits No intervention at this point 14.Possible obstructive sleep CPAP continue 15.Nonspecific symptoms: Right shoulder pain as per patient's Patient had a fall two weeks ago on his right shoulder Ordered shoulder x-ray Home medications: Ropinirole, amitriptyline-patient is unsure about why he takes both these medications Patient was on bupropion for smoking cessation, not for mood related disorder Held bupropion, patient quit smoking about 10 years ago Code Status: Full code DVT Prophylaxis: SCDs Analgesia/Sedation: Morphine, [place], lidocaine patches Lines/Tubes: PIV Gi Prophylaxis: Omeprazole Nutrition: Heart healthy diet PT:yes Prognosis: Guarded Disposition: Continue to closely monitor patient for any neurological signs, follow with prostate-specific antigen, please touch base with Dr. Thomas Ernandez in the a.m. POA: Missy Cobb [phone] Lay Connolly MD Internal medicine resident,PGY-1 Patient discussed with resident. I agree with the H&P and assessment and plan as documented, with no changes. Kanwal Kimball MD Critical Care Date of Service: Jan 09, 2025 Billing Provider: KANWAL KIMBALL MD, JAHNAVI, RES Jan 09, 2025 21:27 KANWAL KIMBALL MD Jan 10, 2025 18:11
--- NOTE | 2025-01-09 21:50 | RADIOLOGY REPORT ---
CHEST RADIOGRAPH Indication: CHF Technique: Single frontal view of the chest was obtained COMPARISON: DI CHEST,SINGLE VIEW on DOS: 11/27/24, DI THORACIC SPINE COMPLETE on DOS: 11/26/24, DI CHEST,SINGLE VIEW on DOS: 11/24/24 FINDINGS: Lines and Tubes: None. Left anterior chest wall dual lead cardiac pacing device. Lungs: Clear Pleura: No effusion. No pneumothorax. Cardiomediastinal contours: Unremarkable Bones: Unremarkable IMPRESSION: 1. No radiographic evidence of acute cardiopulmonary abnormality.
--- NOTE | 2025-01-09 21:54 | RADIOLOGY REPORT ---
CLINICAL INDICATION: Right shoulder pain post fall TECHNIQUE: DI SHOULDER, COMPLETE (MIN 2 VWS) Comparison: None FINDINGS/IMPRESSION: : There is no evidence of acute fracture or dislocation. Subacute to chronic appearing posterior right 5th rib fracture noted. Soft tissues are unremarkable.
[2025-01-09] MEDS: bisacodyl 10mg suppository rectal RC STA (21:59)
[2025-01-09] MEDS: insulin glargine (Lantus) pen - multi-dose SQ SCH (22:23)
[2025-01-09 23:19] VITALS: PULSE 73; RESP 16; O2SAT 98
[2025-01-09 23:25] VITALS: BP 125/35; PULSE 67; RESP 22; TEMP 97.8; O2SAT 98
[2025-01-10] VITALS (7 sets, daily range): BP systolic 102–119; BP diastolic 45–73; PULSE 59–88; RESP 15–20; TEMP 97.8–99.5; O2SAT 91–97
[2025-01-10 00:04] LABS: % IRON SATURATION 12 % (11-46)
[2025-01-10] MEDS: HYDROmorphone inj. 0.5 MG/0.5 ML DISP.SYRIN IV PRN (00:53)
[2025-01-10] MEDS: HYDROcodone/acetaminophen 5mg/325mg tablet PO PRN (02:42)
[2025-01-10 06:22] LABS: MEAN PLATELET VOLUME 8.2 FL (7.4-10.4); RED CELL DISTRIBUTION WIDTH 20.9 % (11.5-14.5)
[2025-01-10 06:43] LABS: CREATININE 1.31 MG/DL (0.60-1.10); TOTAL CARBON DIOXIDE 27.5 MMOL/L (24-32); eCRCL 54 ML/MIN; eGFR 53 ML/MIN
[2025-01-10 07:17] LABS: BANDS% (MANUAL) 12.0 % (0-10); EOSINOPHILS % (MANUAL) 4.0 % (0-6); LYMPHOCYTES % (MANUAL) 15.0 % (21-51); METAMYLEOCYTES% (MANUAL) 3.0 % (0-0); MONOCYTES % (MANUAL) 10.0 % (2-12); MYELOCYTES % (MANUAL) 2.0 % (0-0); NEUTROPHILS % (MANUAL) 53.0 % (42-75); NUCLEATED RED BLOOD CELLS 4 /100WBC (0-0); PLATELET ESTIMATE DECREASED; REACTIVE LYMPHOCYTES % 1.0 % (0-0)
[2025-01-10] MEDS: pantoprazole 40mg Tablet.DR PO SCH (07:45)
[2025-01-10] MEDS: docusate sod 100mg capsule PO SCH (07:45)
[2025-01-10] MEDS: HYDROcodone/acetaminophen 10/325mg tab PO PRN (07:46)
[2025-01-10] MEDS ORDERED: heparin 10,000 units/1 ML INJ ONE (08:00)
[2025-01-10] MEDS ORDERED: amiodarone 50MG/ML inj IV ONE (08:00)
[2025-01-10] MEDS ORDERED: non-formulary drug (Tiotropium Br/Olodaterol HCl (Stiolto Respimat Inhal Spray) 2 PUFFS) IH SCH (08:00)
[2025-01-10] MEDS: K and/or MAG REPLACEMENT MC SCH (08:00)
[2025-01-10] MEDS ORDERED: heparin, porcine-25,000 units/D5-250ml premix IV ONE (08:00)
[2025-01-10] MEDS ORDERED: epiNEPHrine 0.1mg/ml 10ml syringe ONE (08:00)
[2025-01-10] MEDS ORDERED: bisacodyl 5mg tablet.DR PO PRN (18:30)
--- NOTE | 2025-01-10 18:35 | PROGRESS NOTE- Residence ---
Progress Note - Resident Providers to CC Resident Creating Document: SOPHIADelmarPEDRO LUIS RES ~ Antibiotic Timeout Antibiotic Ordered?: Yes Subjective Patient was seen and examined at bedside, he clearly is in acute distress. He has excessive lower back pain of 9/10 intensity. He claims pain medications have not been helping him over the past 24 hours. Hence have increased the frequency of morphine q.2h p.r.n.. Awaiting neurosurgery recommendations. Objective Vital Signs Date Time Temp Pulse Resp B/P (MAP) Pulse Ox O2 Delivery O2 Flow Rate FiO2 01/10/25 15:38 68 18 97 Nasal Cannula* 2 28 01/10/25 10:00 97.8 114/54 (74) Result Diagram: 01/10/2545501/10/25455 General: Awake, oriented to person, place and time, in extreme excruciating pain HEENT: Conjunctive are pale, sclerae clear, no icterus, pupil is equal in both sides, reactive to light, no ear discharge, no pharyngeal erythema or an edema. Neck: Supple, no JVD, no lymphadenopathy and thyromegaly. Chest: Equal air entry on both lungs, no additional sounds no rhonchi no wheezing at the moment. Cardiovascular: S1-S2 regular sinus rhythm and, regular rate, no gallops, no rubs, no murmurs Abdomen: No visible peristalsis, Bowel sounds present on auscultation, soft, no tenderness, no guarding, no rigidity. Extremities: Accidental amputation of right hand, accidental short left hand ring finger, chronic venous stasis bilateral extremities, hallux valgus noted in bilateral lower toes, no pitting edema bilaterally, capillary refill intact, peripheral pulsations are intact on both sides Neurologic: Mental status: alert and conscious, oriented to place, person and time, preserved memory, normal speech. Cranial nerves I-XII: Normal. Motor system: Mild tremors noted in upper extremities, coordination intact, severely decreased strength in lower extremities 0/5, left upper extremity strength 4/5, right upper extremity strength 2/5 (recent fall on right shoulder) Sensory system: Decreased temperature, pain sensation in bilateral lower extremities. Pressure sensation intact Diminished deep tendon reflexes in biceps, triceps, quadriceps. Negative Babinski. Cerebellar: No nystagmus, dysdiadochokinesia, normal [id number] testing. Musculoskeletal: Severe back pain Skin: Warm and dry. Dry oral mucosa. 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 Plan Plan 1. Suspected Newly Diagnosed Metastatic Prostate Cancer Findings: CT Lumbar Spine: Diffuse osseous metastatic disease, no acute or pathologic fractures; disc protrusions at L34 and L45 CT Abdomen/Pelvis: Diffuse osteoblastic metastases involving axial and appendicular skeleton, retroperitoneal lymphadenopathy (up to 1.8 cm), consistent with malignant etiology ALP 744 (markedly elevated) No signs of cauda equina (intact rectal tone, no saddle anesthesia, no bladder/bowel dysfunction) Longstanding back pain now acutely worsened, severely limiting mobility and ADLs Differential: Prostate cancer (most likely), medullary thyroid carcinoma, carcinoid tumor, medulloblastoma Plan: PSA pending to confirm prostate origin Also ordered CEA for possible colon cancer IR-guided biopsy recommended per Dr. Thomas Ernandez (Neurosurgery) contacted today awaiting final recommendations Myelogram deferred as per Dr. Thomas Ernandez; no current indication Pain Management (revised): Morphine q2h PRN for severe pain. [place] q46h PRN for moderate pain. Continue lidocaine patches and diclofenac gel. Neurological checks q4h Consider Oncology and Palliative Care consults outpatient once diagnosis is confirmed Bandemia: Left shift with band neutrophils 21% Procalcitonin slightly elevated to 0.73, UA and urine cultures ordered Blood cultures ordered CT chest ordered for any acute pathology CT abdomen/pelvis shows no signs of any infection Vital signs within normal limits We will continue to monitor Ordered empiric antibiotic therapy with Rocephin 1 g IV daily We will escalate/deescalate antibiotics based on further workup 2. Severe Peripheral Neuropathy / Chronic Venous Stasis Chronic, stable. Continue gabapentin 300 mg PO daily. Encourage leg elevation and gentle activity as tolerated. Compression therapy if no contraindications. 3. 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) Implanted by Dr. Cordon for symptomatic bradycardia with exertional intolerance Current HR stable; device functioning appropriately Plan Telemetry monitoring inpatient 4. Chronic Compensated Heart Failure (HFpEF) / Pulmonary Hypertension Echocardiogram (11/25/2024): LVEF 7580% (hyperdynamic). RV moderateseverely dilated, normal function. RVSP 88 mmHg severe pulmonary hypertension. Flattened septum RV pressure overload. Severely dilated LA. Plan: Monitor for volume overload Strict I/O, daily weights. Continue heart-healthy diet and sodium restriction. 5. Chronic Kidney Disease Stage IIIA Baseline Cr 1.3 mg/dL; currently stable Plan: Avoid nephrotoxins (NSAIDs, contrast, ACEI/ARB if hypotensive) Monitor renal function and electrolytes daily. 6. Uncontrolled Diabetes Mellitus Type 2 A1c 8.5% (11/25/2024). Home regimen: Lantus 100 units, Aspart 100 units, Metformin 1000 mg, Semaglutide Plan: Continue Lantus 20 units nightly Correctional/Sliding scale insulin with meals and bedtime Hold metformin and semaglutide (risk of lactic acidosis and NPO) Maintain 219447 mg/dL 7. Chronic Atrial Fibrillation (Rate Controlled) On dabigatran 150 mg BID at home. Plan: Hold dabigatran pending biopsy/procedural clearance Continue telemetry monitoring Resume anticoagulation post-procedure if platelets stable and cleared by IR/oncology 8. Hypertension Home meds: Amlodipine 10 mg, Losartan 25 mg, Chlorthalidone 25 mg. Current: BP soft during hospitalization. Plan: Continue to hold antihypertensives for now. Resume gradually if systolic BP >140 mmHg and clinically stable. 9. COPD (Stable) Home meds: Tiotropium/olodaterol, albuterol PRN Current SpO: 9495% on RA Plan: Maintain O2 sats 8892% Initiate O2 if <88% Continue home inhalers and PRN nebulizers 10. Bicytopenia (Anemia + Thrombocytopenia) Hgb 8.9 g/dL, Plt 59K (previously 201K) Normocytic, hypochromic anemia Likely marrow infiltration from metastatic disease Plan: Iron studies: Iron saturation 12, iron 21, TIBC 221 reticulocyte count ordered, B12, folate pending. Monitor CBC daily. Transfuse PRN: Hgb <7 g/dL or symptomatic anemia 11. Hyperlipidemia Continue atorvastatin 20 mg nightly. 12. Constipation Likely due to immobility, opioid use, decreased fluid intake CT abdomen: large stool burden Plan: Dulcolax suppository now Start Senna + Miralax daily Maintain hydration and encourage ambulation 13. Cholelithiasis (Asymptomatic) Incidentally found on CT. No pain, negative [place] sign, normal LFTs Plan: Conservative management; monitor for symptoms 14. Possible Obstructive Sleep Apnea Continue CPAP nightly 15. Right Shoulder Pain (Post-Fall 2 Weeks Ago) As per wifes report Plan: Right shoulder X-ray: There is no evidence of acute fracture or dislocation. Subacute to chronic appearing posterior right 5th rib fracture noted Continue analgesics as above Code Status: Full Code POA: Missy Cobb ([phone]) DVT Prophylaxis: SCDs (pharmacologic held for thrombocytopenia/procedure) GI Prophylaxis: Omeprazole Nutrition: Heart-healthy, diabetic diet PT/OT: Consulted Lines/Tubes: PIV Disposition: Continue inpatient monitoring; we will contact [facility] Niurka LYN for evaluation Prognosis: Guarded Pedro Luis Ruffin MD Internal Medicine Resident, PGY-2 Date of Service: Jan 10, 2025 Billing Provider: EDMOND STEELE MD, GAURAV, RES Jan 10, 2025 18:35
[2025-01-10 20:17] LABS: ABSOLUTE RETICS # 97600.0 /CUMM (23000-93000)
[2025-01-10] MEDS: CefTRIAXone/D5W-Rocephin 1gm 50 ML IV SCH (20:27)
[2025-01-10 20:58] LABS: LEUKOCYTE ESTERASE ,URINE NEGATIVE (Neg); NITRITES, URINE NEGATIVE (Neg); OCCULT BLOOD,URINE NEGATIVE (Neg)
[2025-01-10 21:01] LABS: UA COLLECTION TYPE URINAL
[2025-01-10 21:10] LABS: SQUAMOUS EPITHELIAL CELL,UR NONE SEEN /LPF (FEW)
[2025-01-11] VITALS (7 sets, daily range): BP systolic 114–125; BP diastolic 53–55; PULSE 62–71; RESP 16–18; TEMP 98.4–101.5; O2SAT 90–99
[2025-01-11 05:52] LABS: RED CELL DISTRIBUTION WIDTH 21.5 % (11.5-14.5)
[2025-01-11 05:54] LABS: MEAN PLATELET VOLUME 8.5 FL (7.4-10.4)
[2025-01-11 06:19] LABS: CREATININE 1.07 MG/DL (0.60-1.10); TOTAL CARBON DIOXIDE 28.0 MMOL/L (24-32); eCRCL 66 ML/MIN; eGFR 68 ML/MIN
[2025-01-11 06:21] LABS: BANDS% (MANUAL) 15.0 % (0-10); EOSINOPHILS % (MANUAL) 1.0 % (0-6); LYMPHOCYTES % (MANUAL) 13.0 % (21-51); METAMYLEOCYTES% (MANUAL) 5.0 % (0-0); MONOCYTES % (MANUAL) 11.0 % (2-12); MYELOCYTES % (MANUAL) 4.0 % (0-0); NEUTROPHILS % (MANUAL) 51.0 % (42-75); NUCLEATED RED BLOOD CELLS 5 /100WBC (0-0); PLATELET ESTIMATE DECREASED
--- NOTE | 2025-01-11 10:33 | RADIOLOGY REPORT ---
Procedure: CT CT CHEST Clinical History: For any lung pathology. Comparison: DI CHEST SINGLE VIEW on DOS: 01/09/25 TECHNIQUE: Multidetector CT of the chest was performed from the lung apices to the upper abdomen without the use of intravenous contract. Coronal and sagittal multiplanar reformats were performed. RADIATION DOSE: CTDI volume is 18.6 mGy. Dose-length product is 730.1 mGy*cm The dose indicators for CT are the volume Computed Tomography (CT) Dose Index (CTDIvol) and the Dose Length Product (DLP), and are measured in units of mGy and mGy-cm, respectively. These indicators are not patient dose, but values generated from the CT scanner acquisition factors. The report includes radiation exposure data for exposures received during this examination. Radiation optimization: All CT scans at this facility use at least one of these dose optimization techniques: automated exposure control mA and/or kV adjustment per patient size (includes targeted exams where dose is matched to clinical indication) or iterative reconstruction. FINDINGS: Lower neck: Normal thyroid Lungs: Bilateral lower lobe atelectasis is noted. No evidence of pulmonary nodule. S peak Pleura: No pneumothorax. No pleural effusions. Heart/Vascular Structures: AICD /pacemaker is noted. There are coronary artery calcifications. There is no pericardial effusion. The thoracic aorta is normal in caliber. Lymph Nodes: Mildly prominent lymph nodes in the mediastinum measuring up to 10 mm. Musculoskeletal: Innumerable sclerotic lesions throughout all of the visualized bones. Chronic appearing right T11 rib fracture. Soft tissues: There is a left chest wall pacemaker. Upper abdomen: Gallstones. IMPRESSION: 1. No acute or suspicious intrathoracic findings. 2. Innumerable sclerotic lesions throughout the bones compatible with metastatic disease. 3. Cholelithiasis.
[2025-01-11] MEDS: NORMAL SALINE IV ONE (12:20)
[2025-01-11] MEDS: SINCALIDE IV ONE (12:20)
--- NOTE | 2025-01-11 12:52 | PROGRESS NOTE- Residence ---
Progress Note - Resident Providers to CC Resident Creating Document: SOPHIADelmarPEDRO LUIS, RES ~ Antibiotic Timeout Antibiotic Ordered?: No Subjective Patient was seen and examined at bedside. He appears to be comfortable today with intermittent pain. But he claims that the pain is being moderately controlled with morphine Awaiting neurosurgery recommendations. Objective Vital Signs Date Time Temp Pulse Resp B/P (MAP) Pulse Ox O2 Delivery O2 Flow Rate FiO2 01/11/25 11:18 Nasal Cannula 2.5 01/11/25 08:00 18 98 01/11/25 07:03 99.6 67 125/53 (77) 01/10/25 19:55 21 Result Diagram: 01/11/25 0444 01/11/25 0444 General: Awake, oriented to person, place and time, in extreme excruciating pain HEENT: Conjunctive are pale, sclerae clear, no icterus, pupil is equal in both sides, reactive to light, no ear discharge, no pharyngeal erythema or an edema. Neck: Supple, no JVD, no lymphadenopathy and thyromegaly. Chest: Equal air entry on both lungs, no additional sounds no rhonchi no wheezing at the moment. Cardiovascular: S1-S2 regular sinus rhythm and, regular rate, no gallops, no rubs, no murmurs Abdomen: No visible peristalsis, Bowel sounds present on auscultation, soft, no tenderness, no guarding, no rigidity. Extremities: Accidental amputation of right hand, accidental short left hand ring finger, chronic venous stasis bilateral extremities, hallux valgus noted in bilateral lower toes, no pitting edema bilaterally, capillary refill intact, peripheral pulsations are intact on both sides Neurologic: Mental status: alert and conscious, oriented to place, person and time, preserved memory, normal speech. Cranial nerves I-XII: Normal. Motor system: coordination intact, severely decreased strength in lower extremities 2/5, left upper extremity strength 4/5, right upper extremity strength 2/5 (recent fall on right shoulder) Sensory system: Decreased temperature, pain sensation in bilateral lower extremities. Pressure sensation intact Diminished deep tendon reflexes in biceps, triceps, quadriceps. Negative Babinski. Cerebellar: No nystagmus, dysdiadochokinesia, normal [id number] testing. Musculoskeletal: Severe back pain, tenderness present Skin: Warm and dry. Dry oral mucosa. 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 Plan Plan 1. Suspected Newly Diagnosed Metastatic Prostate Cancer Findings: CT Lumbar Spine: Diffuse osseous metastatic disease, no acute or pathologic fractures; disc protrusions at L34 and L45 CT Abdomen/Pelvis: Diffuse osteoblastic metastases involving axial and appendicular skeleton, retroperitoneal lymphadenopathy (up to 1.8 cm), consistent with malignant etiology ALP 744 (markedly elevated) No signs of cauda equina (intact rectal tone, no saddle anesthesia, no bladder/bowel dysfunction) Longstanding back pain now acutely worsened, severely limiting mobility and ADLs Differential: Prostate cancer (most likely), medullary thyroid carcinoma, carcinoid tumor, medulloblastoma Plan: PSA pending to confirm prostate origin Also ordered CEA for possible colon cancer IR-guided biopsy recommended per Dr. Thomas Ernandez (Neurosurgery) he is going to evaluate the patient today Myelogram deferred as per Dr. Thomas Ernandez; no current indication Pain Management (revised): Morphine q2h PRN for severe pain. [place] q46h PRN for moderate pain. Continue lidocaine patches and diclofenac gel. We will reach out to MRI once more tomorrow since the patient has recently had a pacemaker implanted, which should be compatible with MRI. Dr. Thomas Downs also suggested proceeding with the MRI if possible. Neurological checks q4h Consider Oncology and Palliative Care consults outpatient once diagnosis is confirmed Bandemia: Left shift with band neutrophils 21% Procalcitonin slightly elevated to 0.73, UA negative Blood cultures negative until now CT chest showed No acute or suspicious intrathoracic findings. Innumerable sclerotic lesions throughout the bones compatible with metastatic disease. Cholelithiasis. CT abdomen/pelvis showed Diffuse axial, appendicular skeleton osteoblastic metastatic disease. Recommend oncology consultation. Large volume stool throughout the colon. Cholelithiasis and Distended gallbladder. If there is concern for cholecystitis recommend HIDA scan. Atherosclerotic disease. Vital signs within normal limits We will continue to monitor Change antibiotics to Zosyn IV q.8h Repeat procalcitonin trended down to 0.63 2. Severe Peripheral Neuropathy / Chronic Venous Stasis Chronic, stable. Continue gabapentin 300 mg PO daily. Encourage leg elevation and gentle activity as tolerated. Compression therapy if no contraindications. 3. 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) Implanted by Dr. Cordon for symptomatic bradycardia with exertional intolerance Current HR stable; device functioning appropriately Plan Telemetry monitoring inpatient 4. Chronic Compensated Heart Failure (HFpEF) / Pulmonary Hypertension Echocardiogram (11/25/2024): LVEF 7580% (hyperdynamic). RV moderateseverely dilated, normal function. RVSP 88 mmHg severe pulmonary hypertension. Flattened septum RV pressure overload. Severely dilated LA. Plan: Monitor for volume overload Strict I/O, daily weights. Continue heart-healthy diet and sodium restriction. 5. Chronic Kidney Disease Stage IIIA Baseline Cr 1.3 mg/dL; currently stable Plan: Avoid nephrotoxins (NSAIDs, contrast, ACEI/ARB if hypotensive) Monitor renal function and electrolytes daily. 6. Uncontrolled Diabetes Mellitus Type 2 A1c 8.5% (11/25/2024). Home regimen: Lantus 100 units, Aspart 100 units, Metformin 1000 mg, Semaglutide Plan: Continue Lantus 20 units nightly Correctional/Sliding scale insulin with meals and bedtime Hold metformin and semaglutide (risk of lactic acidosis and NPO) Maintain 738955 mg/dL 7. Chronic Atrial Fibrillation (Rate Controlled) On dabigatran 150 mg BID at home. Plan: Hold dabigatran pending procedural clearance Continue telemetry monitoring Resume anticoagulation based on Dr. Thomas Downs's recommendations 8. Hypertension Home meds: Amlodipine 10 mg, Losartan 25 mg, Chlorthalidone 25 mg. Current: BP soft during hospitalization. Plan: Continue to hold antihypertensives for now. Resume gradually if systolic BP >140 mmHg and clinically stable. 9. COPD (Stable) Home meds: Tiotropium/olodaterol, albuterol PRN Current SpO: 9495% on RA Plan: Maintain O2 sats 8892% Initiate O2 if <88% Continue albuterol PRN and DuoNebs q.4h PRN 10. Bicytopenia (Anemia + Thrombocytopenia) with Coagulopathy Labs: Hgb 8.9 down to 8.2 , platelets 59K down to 50K, retic 3.2%, absolute retic 97,300 PT/PTT both elevated Likely marrow infiltration from metastatic disease Normal bilirubin Plan: Awaiting prick stitcher command for PBS LDH, haptoglobin, Direct Leti ordered Ordered fibrinogen, D-dimer, DIC panel Nutritional: Iron studies (Iron 21, sat 12%, TIBC 221), B12 pending Patient will benefit from bone marrow biopsy/aspirate outpatient Blood cultures 2 negative until now, CRP/ESR ordered Hematology consult outpatient 11. Hyperlipidemia Continue atorvastatin 20 mg nightly. 12. Constipation Likely due to immobility, opioid use, decreased fluid intake CT abdomen: large stool burden Plan: Dulcolax suppository now Start Senna + Miralax daily Maintain hydration and encourage ambulation 13. Cholelithiasis (Asymptomatic) Incidentally found on CT. No pain, negative [place] sign, normal LFTs Plan: Conservative management; ordered HIDA scan 14. Possible Obstructive Sleep Apnea Continue CPAP nightly 15. Right Shoulder Pain (Post-Fall 2 Weeks Ago) Right shoulder X-ray: There is no evidence of acute fracture or dislocation. Subacute to chronic appearing posterior right 5th rib fracture noted Continue analgesics as above Code Status: Full Code POA: Missy Cobb ([phone]) DVT Prophylaxis: SCDs (pharmacologic held for thrombocytopenia/procedure) GI Prophylaxis: Omeprazole Nutrition: Heart-healthy, diabetic diet PT/OT: Consulted Lines/Tubes: PIV Disposition: Continue inpatient monitoring; we will contact [facility] Niurka LYN for evaluation on friday 01/12 Prognosis: Guarded Pedro Luis Ruffin MD Internal Medicine Resident, PGY-2 Date of Service: Jan 11, 2025 Billing Provider: EDMOND STEELE MD, GAURAV, RES Jan 11, 2025 12:52
[2025-01-11] MEDS: cyanocobalamin 500mcg tablet PO SCH (13:57)
[2025-01-11] MEDS: morphine 4 MG/ML inj SYRINge IV PRN (13:57)
[2025-01-11 14:07] LABS: APTT 32 SECONDS (22-32); INR 1.3 INR; LACTATE DEHYDROGENASE 618.0 U/L (85-227)
[2025-01-11 14:18] LABS: HIV ANTIBODY 1&2 RAPID NON-REACTIVE (Neg)
[2025-01-11] MEDS: piperacillin/tazo 3.375gm/50ml 50 ML IV SCH (16:10)
[2025-01-12 06:00] VITALS: BP 118/53; PULSE 70; RESP 18; TEMP 97.7; O2SAT 96
[2025-01-12 06:04] LABS: MEAN PLATELET VOLUME 7.9 FL (7.4-10.4); RED CELL DISTRIBUTION WIDTH 22.4 % (11.5-14.5)
[2025-01-12 06:28] LABS: CREATININE 1.08 MG/DL (0.60-1.10); TOTAL CARBON DIOXIDE 29.5 MMOL/L (24-32); eCRCL 66 ML/MIN; eGFR 67 ML/MIN
[2025-01-12 06:34] LABS: BANDS% (MANUAL) 15.0 % (0-10); BASOPHILS % (MANUAL) 1.0 % (0-1); LYMPHOCYTES % (MANUAL) 18.0 % (21-51); METAMYLEOCYTES% (MANUAL) 6.0 % (0-0); MONOCYTES % (MANUAL) 14.0 % (2-12); MYELOCYTES % (MANUAL) 1.0 % (0-0); NEUTROPHILS % (MANUAL) 45.0 % (42-75); NUCLEATED RED BLOOD CELLS 3 /100WBC (0-0); PLATELET ESTIMATE DECREASED
[2025-01-12 06:35] LABS: ELLIPTOCYTES FEW
[2025-01-12 07:24] LABS: % FREE PSA >14.4 % (.); PROSTATE SPECIFIC AG, SERUM 348.0 ng/mL (0.0-4.0)
[2025-01-12 10:00] VITALS: BP 133/51; PULSE 72; RESP 16; TEMP 98; O2SAT 99
--- NOTE | 2025-01-12 10:10 | RADIOLOGY REPORT ---
Procedure: NM NM HIDA SCAN Exam Date: 01/12/2025 08:04 AM Clinical History: Distended gallbladder Comparison Study: None Nuclear Medicine Hepatobiliary Scan. Technique: Following the intravenous administration of 5.2 mCi of technetium 99m labeled Choletec multiple planar abdominal planar images were obtained in anterior projection in 5 minute intervals for45 minutes . Right lateral images were obtained at 45 minutes after injection. Findings: The liver appears grossly normal in size. There is no abnormal persistence of the cardiac or blood pool activity. There is prompt visualization of the gallbladder and excretion of activity into the small bowel. Impression: Unremarkable hepatobiliary study without evidence of acute cholecystitis.
[2025-01-12 16:04] VITALS: PULSE 60; RESP 20; O2SAT 95
[2025-01-12 18:00] VITALS: BP 108/50; PULSE 60; RESP 14; TEMP 97.5; O2SAT 95
--- NOTE | 2025-01-12 18:11 | PROGRESS NOTE- Residence ---
Progress Note - Resident Providers to CC Resident Creating Document: CHRISTIANNE VALIENTE RES ~ Antibiotic Timeout Antibiotic Ordered?: Yes Subjective pt was seen at the bedside with his this morning. Pt denied for any hx of lower Urinary tract obstruction symptoms and also denied any family hx of prostatic cancer but for the urinary bladder cancer. He used to be in the [employer] before he retired and only recalled for the asbestos exposure but not quite sure if he exposed non specific chemicals in the [employer] before. He has recalled the non specific generalized weakness and anemic symptoms over a year now. He and his were explained that pending workups for the source of his non specific sclerotic bony lesions which could be from the possible hidden primary malignancy likely from the prostate causing his back pain for which Dr Thomas Ernandez will be consulting and MRI will be done. He completed his HIDA scan this morning. Still pending MRI spine without IV contrast as per Dr. Thomas Ernandez requested where his recent pacemaker is compatible with MRI. Objective Vital Signs Date Time Temp Pulse Resp B/P (MAP) Pulse Ox O2 Delivery O2 Flow Rate FiO2 01/12/25 16:04 60 20 95 Room Air* 0 21 01/12/25 10:00 98.0 133/51 (78) Result Diagram: 01/12/25 0454 01/12/25 0454 Vitals were stable at the moment with temp 97.7 F, AL 70/minute, RR 18/minute, BP 118/53 mm Hg, pulse oximetry 96% on room air. On examination, General: Awake, oriented to person, place and time, in extreme excruciating pain, pale looking HEENT: Conjunctive are pale, sclerae clear, no icterus, pupil is equal in both sides, reactive to light, no ear discharge, no pharyngeal erythema or an edema. Neck: Supple, no JVD, no lymphadenopathy and thyromegaly. Chest: Equal air entry on both lungs, no additional sounds no rhonchi no wheezing at the moment. Cardiovascular: S1-S2 regular sinus rhythm and, regular rate, no gallops, no rubs, no murmurs Abdomen: No visible peristalsis, Bowel sounds present on auscultation, soft, no tenderness, no guarding, no rigidity. Extremities: Accidental amputation of right hand, accidental short left hand ring finger, chronic venous stasis bilateral extremities, hallux valgus noted in bilateral lower toes, no pitting edema bilaterally, capillary refill intact, peripheral pulsations are intact on both sides Neurologic: Mental status: alert and conscious, oriented to place, person and time, preserved memory, normal speech. Cranial nerves I-XII: Normal. Motor system: coordination intact, severely decreased strength in lower extremities 2/5, left upper extremity strength 4/5, right upper extremity strength 2/5 (recent fall on right shoulder) Sensory system: Decreased temperature, pain sensation in bilateral lower extremities. Pressure sensation intact Diminished deep tendon reflexes in biceps, triceps, quadriceps. Negative Babinski. Cerebellar: No nystagmus, dysdiadochokinesia, normal [id number] testing. Musculoskeletal: Severe back pain, tenderness present Skin: Warm and dry. Dry oral mucosa. Coagulation Studies Laboratory Tests Test 01/11/25 13:24 Prothrombin Time 12.6 SECONDS (9.0-12.0) H INR International Normalized Ratio 1.3 INR Activated Partial Thromboplast Time 32 SECONDS (22-32) Fibrinogen 710 MG/DL (177-424) H D-Dimer > 35.20 MG/L FEU (0-0.50) H DIC Profile Interpretation See dic report Coagulation Comments Assessment Assessment A 74-year-old male with extensive comorbidities including atrial fibrillation (on dabigatran), symptomatic bradycardia s/p dual-chamber pacemaker (11/2024), chronic compensated HF with hyperdynamic EF, pulmonary hypertension, CKD stage IIIA, T2DM, COPD, chronic low back pain, and peripheral neuropathy, who presented with intractable low back pain and recent weight loss, found to have diffuse osteoblastic/sclerotic metastases, most likely from hidden primary malignancy for which patient was admitted to sort out with multiple workups. Plan Plan # Suspected Newly Diagnosed Metastatic Prostate Cancer with multiple vertebrae sclerotic lesions Findings: CT Lumbar Spine: Diffuse osseous metastatic disease, no acute or pathologic fractures; disc protrusions at L34 and L45 CT Abdomen/Pelvis: Diffuse osteoblastic metastases involving axial and appendicular skeleton, retroperitoneal lymphadenopathy (up to 1.8 cm), consistent with malignant etiology ALP 744 (markedly elevated) No signs of cauda equina (intact rectal tone, no saddle anesthesia, no bladder/bowel dysfunction) Longstanding back pain now acutely worsened, severely limiting mobility and ADLs Differential: Prostate cancer (most likely), medullary thyroid carcinoma, carcinoid tumor, medulloblastoma Plan: -PSA pending to confirm prostate origin -Pending CEA for possible colon cancer and CA 19-9 for the pancreatic cancer -Dr. Thomas Ernandez (Neurosurgery) consulted the patient, and suspected for the MM which is less likely with blastic bony lesions, and only positive for the anemia and mild hyperglobulinemia, Recommended for the MRI Spine without IV Contrast which is still pending, stated that no indications for any intervention from the surgical stand point, appreciate for the consultation -Requested Onc Consultation from Jerad Oden ([facility]) recommended for the possible bone biopsy with IR team in the inpatient if possible. Otherwise, to set up with the [facility] by faxing the pt info to their office after discharged to schedule for the bone biopsy in the outpatient setting and further management. -Pain Management (revised): Morphine q2h PRN for severe pain. [place] q46h PRN for moderate pain. Continue lidocaine patches and diclofenac gel. -Neurological checks q4h # Bandemia: Left shift with band neutrophils 21% -Procalcitonin slightly elevated to 0.73, UA negative -Blood cultures negative after one day of incubation -CT chest showed No acute or suspicious intrathoracic findings. Innumerable sclerotic lesions throughout the bones compatible with metastatic disease. Cholelithiasis. -CT abdomen/pelvis showed Diffuse axial, appendicular skeleton osteoblastic metastatic disease. Recommend oncology consultation. Large volume stool throughout the colon. Cholelithiasis and Distended gallbladder. If there is concern for cholecystitis recommend HIDA scan. Atherosclerotic disease. -Continue Zosyn IV q.8h -Repeat procalcitonin trended down to 0.63 # Cholelithiasis (Asymptomatic) -Incidentally found on CT. -No pain, negative [place] sign, normal LFTs Plan: Conservative management; HIDA scan on 01/13/25 showed Unremarkable hepatobiliary study without evidence of acute cholecystitis. # Bicytopenia (Anemia + Thrombocytopenia) with Coagulopathy Labs: Hgb 8.9 down to 8.2 , platelets 59K down to 50K, retic 3.2%, absolute retic 97,300 PT/PTT both elevated Likely marrow infiltration from metastatic disease Normal bilirubin Plan: -Awaiting press room supervisor command for PBS -pending Direct Leti and LDH was high with pending haptoglobin, elevated Retic count -Ruled out the Possible DIC with Fibrinogen >50 which is elevated 710 could indicate for the infections and inflammations -Nutritional: Iron studies (Iron 21, sat 12%, TIBC 221), B12 pending -Patient will benefit from bone marrow biopsy/aspirate outpatient -Blood cultures 2 negative until now, CRP/ESR were elevated -Hematology consult outpatient -Pending HIT Antibody -Negative HIV 1&2 Serology, and pending HBV and HCV workups # Severe Peripheral Neuropathy / Chronic Venous Stasis Chronic, stable. Continue gabapentin 300 mg PO daily. Encourage leg elevation and gentle activity as tolerated. Compression therapy if no contraindications. # 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) Implanted by Dr. Cordon for symptomatic bradycardia with exertional intolerance Current HR stable; device functioning appropriately Plan Telemetry monitoring inpatient # Chronic Compensated Heart Failure (HFpEF) / Pulmonary Hypertension Echocardiogram (11/25/2024): LVEF 7580% (hyperdynamic). RV moderateseverely dilated, normal function. RVSP 88 mmHg severe pulmonary hypertension. Flattened septum RV pressure overload. Severely dilated LA. Plan: Monitor for volume overload Strict I/O, daily weights. Continue heart-healthy diet and sodium restriction. # Chronic Kidney Disease Stage IIIA Baseline Cr 1.3 mg/dL; currently stable Plan: Avoid nephrotoxins (NSAIDs, contrast, ACEI/ARB if hypotensive) Monitor renal function and electrolytes daily. # Uncontrolled Diabetes Mellitus Type 2 A1c 8.5% (11/25/2024). Home regimen: Lantus 100 units, Aspart 100 units, Metformin 1000 mg, Semaglutide Plan: Continue Lantus 20 units nightly Correctional/Sliding scale insulin with meals and bedtime Hold metformin and semaglutide (risk of lactic acidosis and NPO) Maintain 930800 mg/dL # Chronic Atrial Fibrillation (Rate Controlled) On dabigatran 150 mg BID at home. Plan: Hold dabigatran pending procedural clearance Continue telemetry monitoring Resume anticoagulation based on Dr. Thomas Downs's recommendations # Hypertension Home meds: Amlodipine 10 mg, Losartan 25 mg, Chlorthalidone 25 mg. Current: BP soft during hospitalization. Plan: Continue to hold antihypertensives for now. Resume gradually if systolic BP >140 mmHg and clinically stable. # COPD (Stable) Home meds: Tiotropium/olodaterol, albuterol PRN Current SpO: 9495% on RA Plan: Maintain O2 sats 8892% Initiate O2 if <88% Continue albuterol PRN and DuoNebs q.4h PRN # Hyperlipidemia Continue atorvastatin 20 mg nightly. # Constipation Likely due to immobility, opioid use, decreased fluid intake CT abdomen: large stool burden Plan: Dulcolax suppository now Start Senna + Miralax daily Maintain hydration and encourage ambulation # Possible Obstructive Sleep Apnea Continue CPAP nightly # Right Shoulder Pain (Post-Fall 2 Weeks Ago) Right shoulder X-ray: There is no evidence of acute fracture or dislocation. Subacute to chronic appearing posterior right 5th rib fracture noted Continue analgesics as above Code Status: Full Code POA: Missy Cobb ([phone]) DVT Prophylaxis: SCDs (pharmacologic held for thrombocytopenia/procedure) GI Prophylaxis: Omeprazole Nutrition: Heart-healthy, diabetic diet PT/OT: Consulted Lines/Tubes: PIV Prognosis: Guarded Disposition: Continue inpatient monitoring; prioritize PT eval tomorrow morning, and Discharge plan with [facility] Follow up and referral. Resident MD attestation: Patient was seen, examined and discussed with attending , Dr. Edi VALIENTE MD Internal Medicine Resident, PGY3 [facility] Date of Service: Jan 12, 2025 Billing Provider: EDMOND STEELE MD, TIN, RES Jan 12, 2025 18:11
--- NOTE | 2025-01-12 19:05 | RADIOLOGY REPORT ---
Procedure: MR MRI [facility] Study Date and Requested Time: 01/12/2025 05:39 PM Study For any epidural abscess and spinal cord involvement from osteoblastic lesi Comparison: CT chest 01/11/2025 Technique: Multiple sequential thoracic spine images obtained for evaluation. Findings: Study is limited by motion artifact. 12 Rib-bearing thoracic type vertebrae. Normal alignment of the thoracic spine. The vertebral body heights are maintained. There is diffuse T1 hypointensity of the visualized marrow consistent with infiltrative process. No significant spinal canal or neural foramina stenosis. Paraspinal muscles are unremarkable. Impression: Study is limited by motion artifact. T1 hypointense marrow signal of the thoracic spine consistent with infiltrative marrow process. No significant spinal canal or neural foramina stenosis. No obvious epidural abscesses are noted within the limitations of noncontrast study. No obvious cord abnormality within the limitations of motion artifact.
--- NOTE | 2025-01-12 19:27 | RADIOLOGY REPORT ---
EXAM: MR MRI LUMBAR SPINE CLINICAL HISTORY: For any epidural abscess and spinal cord involvement from osteoblastic lesi COMPARISON: CT CT LUMBAR SPINE on DOS: 01/09/25 TECHNIQUE: MRI imaging of the lumbar was performed on a MRI imaging system without intravenous contrast. FINDINGS: 5 [id number] lumbar-type vertebrae with partial lumbarization of the S1. Mild straightening of the lumbar lordosis. Vertebral body heights are maintained. 2.9 x 2.2 cm hyperintense lesion over the anterior L5 vertebral body on all sequences consistent with a Lytic lesion when correlated with CT lumbar spine of 01/09/2025. Otherwise, diffuse T1 hypointense marrow signal of the visualized osseous structures consistent with infiltrative marrow process. The conus terminates at the level of the mid vertebral body of L1 with no abnormal cord signal. T12-L1 to L3-L4: No significant spinal canal or neural foramina stenosis. Mild bilateral facet effusion at L2-L3 and L3-L4. L4-L5: Posterior disc osteophyte complex with left eccentric disc extrusion, ligamentum flavum hypertrophy, facet osteoarthritis and dorsal epidural lipomatosis causing severe spinal canal stenosis with severe esfee-[id number]-dcoi-left lateral recess narrowing. Mild right with moderate left- sided neural foramina stenosis. Mild bilateral facet effusion. L5-S1: Mild posterior disc bulge with central disc extrusion extending posterior to the S1 vertebral body without significant spinal canal stenosis. Moderate bilateral lateral recess narrowing. Severe bilateral neural foramina stenosis. Moderate left facet effusion. The paraspinal muscles are unremarkable. IMPRESSION: Limited noncontrast imaging. Marrow infiltrative process with 2.9 cm lytic lesion of the anterior L5 vertebral body. Severe spinal canal stenosis with severe bilateral lateral recess narrowing at L4-L5. Moderate bilateral lateral recess narrowing at L5-S1. Severe bilateral neural foramina stenosis at L5-S1 with moderate left-sided neural foramina stenosis at L4-L5.
[2025-01-12] MEDS: piperacillin/tazo 3.375gm/50ml 50 ML IV SCH (20:12)
[2025-01-12 22:00] VITALS: BP 123/50; PULSE 60; RESP 14; TEMP 97.2; O2SAT 98
[2025-01-13] VITALS (7 sets, daily range): BP systolic 106–111; BP diastolic 51–58; PULSE 59–74; RESP 14–18; TEMP 97.7–99.2; O2SAT 94–98
[2025-01-13 05:52] LABS: MEAN PLATELET VOLUME 8.2 FL (7.4-10.4); RED CELL DISTRIBUTION WIDTH 21.6 % (11.5-14.5)
[2025-01-13 06:01] LABS: CREATININE 1.26 MG/DL (0.60-1.10); TOTAL CARBON DIOXIDE 29.6 MMOL/L (24-32); eCRCL 56 ML/MIN; eGFR 56 ML/MIN
[2025-01-13 06:23] LABS: BANDS% (MANUAL) 15.0 % (0-10); EOSINOPHILS % (MANUAL) 4.0 % (0-6); METAMYLEOCYTES% (MANUAL) 7.0 % (0-0); MYELOCYTES % (MANUAL) 3.0 % (0-0); NUCLEATED RED BLOOD CELLS 8 /100WBC (0-0)
[2025-01-13 06:24] LABS: LYMPHOCYTES % (MANUAL) 11.0 % (21-51); MONOCYTES % (MANUAL) 6.0 % (2-12); NEUTROPHILS % (MANUAL) 54.0 % (42-75)
[2025-01-13 06:25] LABS: PLATELET ESTIMATE DECREASED
[2025-01-13 06:26] LABS: ELLIPTOCYTES FEW
[2025-01-13 09:18] LABS: % FREE PSA >18.2 % (.); PROSTATE SPECIFIC AG, SERUM 274.0 ng/mL (0.0-4.0)
[2025-01-13 13:16] LABS: GAMMA GLUTAMLY TRANSPEPTIDASE 40 IU/L (0-65)
--- NOTE | 2025-01-13 18:03 | PROGRESS NOTE- Residence ---
Progress Note - Resident Providers to CC Resident Creating Document: SOPHIADelmarMELL KIM ~ Antibiotic Timeout Antibiotic Ordered?: No Subjective Patient was seen and examined at bedside, he still complains of lower back pain but reduced in intensity since admission. He was explained in detail regarding the suspicious bone lesions on imaging and also regarding suspicion of metastatic prostate carcinoma. Objective Vital Signs Date Time Temp Pulse Resp B/P (MAP) Pulse Ox O2 Delivery O2 Flow Rate FiO2 01/13/25 13:28 16 01/13/25 08:00 97 Room Air 01/13/25 07:46 71 0 21 01/13/25 06:00 98.0 106/58 (74) Result Diagram: 01/13/25 0510 01/13/25 0510 General: Awake, oriented to person, place and time, in moderate excruciating pain-improving slowly HEENT: Conjunctive are pale, sclerae clear, no icterus, pupil is equal in both sides, reactive to light, no ear discharge, no pharyngeal erythema or an edema. Neck: Supple, no JVD, no lymphadenopathy and thyromegaly. Chest: Equal air entry on both lungs, no additional sounds no rhonchi no wheezing at the moment. Cardiovascular: S1-S2 regular sinus rhythm and, regular rate, no gallops, no rubs, no murmurs Abdomen: No visible peristalsis, Bowel sounds present on auscultation, soft, no tenderness, no guarding, no rigidity. Extremities: Accidental amputation of right hand, accidental short left hand ring finger, chronic venous stasis bilateral extremities, hallux valgus noted in bilateral lower toes, no pitting edema bilaterally, capillary refill intact, peripheral pulsations are intact on both sides Neurologic: Mental status: alert and conscious, oriented to place, person and time, preserved memory, normal speech. Cranial nerves I-XII: Normal. Motor system: coordination intact, severely decreased strength in lower extremities 2/5, left upper extremity strength 4/5, right upper extremity strength 2/5 (recent fall on right shoulder) Sensory system: Decreased temperature, pain sensation in bilateral lower extremities. Pressure sensation intact Diminished deep tendon reflexes in biceps, triceps, quadriceps. Negative Babinski. Cerebellar: No nystagmus, dysdiadochokinesia, normal [id number] testing. Musculoskeletal: Severe back pain, tenderness present Skin: Warm and dry. Dry oral mucosa. 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 Plan Plan Suspected Newly Diagnosed Metastatic Prostate Cancer with multiple vertebrae sclerotic lesions Findings: CT Lumbar Spine: Diffuse osseous metastatic disease, no acute or pathologic fractures; disc protrusions at L34 and L45 CT Abdomen/Pelvis: Diffuse osteoblastic metastases involving axial and appendicular skeleton, retroperitoneal lymphadenopathy (up to 1.8 cm), consistent with malignant etiology ALP 744 (markedly elevated) No signs of cauda equina (intact rectal tone, no saddle anesthesia, no bladder/bowel dysfunction) Longstanding back pain now acutely worsened, severely limiting mobility and ADLs Differential: Prostate cancer (most likely), medullary thyroid carcinoma, carcinoid tumor, medulloblastoma Plan: -PSA : 348 (markedly elevated) -ALP mildly elevated on admission to 689 (GGT normal this admission) -ALP was also elevated during the last admission 4 weeks ago; and patient was recommended outpatient follow up (GGT was slightly elevated last admission) -Pending CEA for possible colon cancer and CA 19-9 for the pancreatic cancer -Dr. Thomas Ernandez (Neurosurgery) consulted the patient, recommended that there is no immediate need of any surgery as patient's lower extremity symptoms are chronic and not acute Recommended outpatient bone biopsy by IR (in view of Diffuse osseous sclerosis of the lumbar spine and pelvis); also recommended follow up with [facility] -Requested Oncology Consultation from Jerad Oden ([facility]); recommended bone biopsy with IR inpatient if possible; otherwise outpatient. -Pain Management (revised): Morphine q2h PRN for severe pain. [place] q46h PRN for moderate pain. Continue lidocaine patches and diclofenac gel. -Neurological checks q4h Bandemia: Left shift with band neutrophils 21% -Procalcitonin slightly elevated to 0.73, UA negative -Blood cultures negative until now -CT chest showed No acute or suspicious intrathoracic findings. Innumerable sclerotic lesions throughout the bones compatible with metastatic disease. Cholelithiasis. -CT abdomen/pelvis showed Diffuse axial, appendicular skeleton osteoblastic metastatic disease. Recommend oncology consultation. Large volume stool throughout the colon. Cholelithiasis and Distended gallbladder. If there is concern for cholecystitis recommend HIDA scan. Atherosclerotic disease. -consulted ID, Dr. Monaco today, recommended to stop Zosyn as infection is very unlikely in this patient considering labs and symptoms Recommended to stop Zosyn, and monitor; bone marrow biopsy inpatient; consulted [facility] for BM biopsy - Pathologist Comments: - Normocytic normochromic anemia with circulating nucleated RBCs. No blasts or blast equivalents identified. - Left granulocytic shift including metamyelocytes. - Moderate thrombocytopenia. The findings indicate: leukoerythroblastic reaction such as myelodysplastic process; severe marrow stress from hemolysis, sepsis or recovery from aplasia; or MDS or acute leukemia, though no blasts were identified. -Repeat procalcitonin trended down to 0.63 Cholelithiasis (Asymptomatic) -Incidentally found on CT. -No pain, negative Sutter sign, normal LFTs Plan: Conservative management; HIDA scan on 01/13/25 showed Unremarkable hepatobiliary study without evidence of acute cholecystitis. Bicytopenia (Anemia + Thrombocytopenia) with Coagulopathy Possible sepsis associated coagulopathy Labs: Hgb 8.9 down to 8.2 , platelets 59K down to 50K, retic 3.2%, absolute retic 97,300 PT/PTT both elevated Likely marrow infiltration from metastatic disease Normal bilirubin Plan: -fur coat sewer noted severe leukoerythroblastic reaction which could possibly be from myelodysplastic process or severe bone marrow stress from MDS or AML (alone blasts are normal) -diet Leti negative, and LDH was high with pending haptoglobin, elevated Retic count -Ruled out the Possible DIC with Fibrinogen 710, an elevated D-dimer -Nutritional: Iron studies (Iron 21, sat 12%, TIBC 221), B12 625 -case preparer and liner is working on setting appointment for bone biopsy by IR/ consultation with [facility]/ bone marrow biopsy -Blood cultures 2 negative until now, CRP/ESR elevated -Hematology consult outpatient -Pending HIT Antibody -Negative HIV 1&2 Serology, and pending HBV and HCV workups Severe Peripheral Neuropathy / Chronic Venous Stasis Chronic, stable. Continue gabapentin 300 mg PO daily. Encourage leg elevation and gentle activity as tolerated. Compression therapy if no contraindications. 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) Implanted by Dr. Cordon for symptomatic bradycardia with exertional intolerance Current HR stable; device functioning appropriately Plan Telemetry monitoring inpatient Chronic Compensated Heart Failure (HFpEF) / Pulmonary Hypertension Echocardiogram (11/25/2024): LVEF 7580% (hyperdynamic). RV moderateseverely dilated, normal function. RVSP 88 mmHg severe pulmonary hypertension. Flattened septum RV pressure overload. Severely dilated LA. Plan: Monitor for volume overload Strict I/O, daily weights. Continue heart-healthy diet and sodium restriction. Chronic Kidney Disease Stage IIIA Baseline Cr 1.3 mg/dL; currently stable Plan: Avoid nephrotoxins (NSAIDs, contrast, ACEI/ARB if hypotensive) Monitor renal function and electrolytes daily. Uncontrolled Diabetes Mellitus Type 2 A1c 8.5% (11/25/2024). Home regimen: Lantus 100 units, Aspart 100 units, Metformin 1000 mg, Semaglutide Plan: Continue Lantus 20 units nightly Correctional/Sliding scale insulin with meals and bedtime Hold metformin and semaglutide (risk of lactic acidosis and NPO) Maintain 396537 mg/dL Chronic Atrial Fibrillation (Rate Controlled) On dabigatran 150 mg BID at home. Plan: Hold dabigatran pending procedural clearance Continue telemetry monitoring Resume anticoagulation based on Dr. Thomas Downs's recommendations Hypertension Home meds: Amlodipine 10 mg, Losartan 25 mg, Chlorthalidone 25 mg. Current: BP soft during hospitalization. Plan: Continue to hold antihypertensives for now. Resume gradually if systolic BP >140 mmHg and clinically stable. COPD (Stable) Home meds: Tiotropium/olodaterol, albuterol PRN Current SpO: 9495% on RA Plan: Maintain O2 sats 8892% Initiate O2 if <88% Continue albuterol PRN and DuoNebs q.4h PRN Hyperlipidemia: Continue atorvastatin 20 mg nightly. Constipation Likely due to immobility, opioid use, decreased fluid intake CT abdomen: large stool burden Plan: Dulcolax suppository now Start Senna + Miralax daily Maintain hydration and encourage ambulation Possible Obstructive Sleep Apnea Continue CPAP nightly Right Shoulder Pain (Post-Fall 2 Weeks Ago) Right shoulder X-ray: There is no evidence of acute fracture or dislocation. Subacute to chronic appearing posterior right 5th rib fracture noted Continue analgesics as above Code Status: Full Code POA: Missy Cobb ([phone]) DVT Prophylaxis: SCDs (pharmacologic held for thrombocytopenia/procedure) GI Prophylaxis: Omeprazole Nutrition: Heart-healthy, diabetic diet PT/OT: Consulted Lines/Tubes: PIV Prognosis: Guarded Disposition: Pending PT eval, appointment date and time with [facility], appointment for bone biopsy by IR, bone marrow biopsy Pedro Luis Ruffin IM Resident, PGY1 Date of Service: Jan 13, 2025 Billing Provider: EDMOND STEELE MD, GAURAV, RES Jan 13, 2025 18:03
[2025-01-14 05:31] LABS: HEP B CORE AB, IGM Negative (Negative); HEPATITIS C VIRUS ANTIBODY Non Reactive (Non Reactive)
[2025-01-14 06:00] VITALS: BP 96/46; PULSE 70; RESP 13; TEMP 97.6; O2SAT 95
[2025-01-14 06:16] LABS: MEAN PLATELET VOLUME 8.3 FL (7.4-10.4); RED CELL DISTRIBUTION WIDTH 21.3 % (11.5-14.5)
[2025-01-14 06:32] LABS: CREATININE 1.10 MG/DL (0.60-1.10); TOTAL CARBON DIOXIDE 29.8 MMOL/L (24-32); eCRCL 65 ML/MIN; eGFR 65 ML/MIN
[2025-01-14 09:30] LABS: BANDS% (MANUAL) 14.0 % (0-10); EOSINOPHILS % (MANUAL) 4.0 % (0-6); LYMPHOCYTES % (MANUAL) 15.0 % (21-51); METAMYLEOCYTES% (MANUAL) 7.0 % (0-0); MONOCYTES % (MANUAL) 11.0 % (2-12); NEUTROPHILS % (MANUAL) 49.0 % (42-75); NUCLEATED RED BLOOD CELLS 1 /100WBC (0-0)
[2025-01-14 09:31] LABS: PLATELET ESTIMATE DECREASED
[2025-01-14 14:06] VITALS: PULSE 63; RESP 16; O2SAT 95
[2025-01-14] MEDS ORDERED: MORP30TA PO (15:15)
--- NOTE | 2025-01-14 18:11 | DISCHARGE SUMMARY-Residence ---
Discharge Summary Providers to CC Resident Creating Document: JULIO HAIDER, RES ~ Discharge Summary Admission Diagnosis: INTRACTABLE BACK PAIN WITH METASTATIC CA Hospital Course DATE OF ADMISSION: 01/09/2025 DATE OF DISCHARGE: 01/14/2025 Discharge Diagnosis\Comment: Suspected Newly Diagnosed Metastatic Prostate Cancer with multiple vertebrae sclerotic lesions Bandemia: Left shift with band neutrophils 21%, POA Cholelithiasis (Asymptomatic) Bicytopenia (Anemia + Thrombocytopenia) with Coagulopathy Possible sepsis associated coagulopathy Heparin induced thrombocytopenia (HIT) Severe Peripheral Neuropathy / Chronic Venous Stasis 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) Chronic Compensated Heart Failure (HFpEF) / Pulmonary Hypertension Chronic Kidney Disease Stage IIIA Uncontrolled Diabetes Mellitus Type 2 Chronic Atrial Fibrillation (Rate Controlled) Hypertension COPD (Stable) Hyperlipidemia Constipation Possible Obstructive Sleep Apnea Right Shoulder Pain (Post-Fall 2 Weeks Ago) Operations\Procedures: None Consultants: Neurosurgery Infectious diseases [facility] Complications: None Condition on DC: Stable New Medications: Morphine Sulfate Tab* (Morphine Tab*) 30 Mg Tablet 1 TAB PO TID PRN PRN for pain for 5 Days, #15 TAB Continued Medications: albuterol inhaler (Pro-Air Inhaler) 8.5 Gm Inhaler 2 PUFFS INH Q6H PRN for wheezing for 30 Days, #18 GM Amitriptyline Hcl (Amitriptyline Hcl) 25 Mg Tablet 12.5 MG PO HS Atorvastatin Calcium* (Lipitor*) 20 Mg Tablet 2 TABLET PO HS, TABLET Berberine Chloride (Berberine) 500 Mg Capsule Bupropion Hcl SR* (Wellbutrin SR*) 150 Mg Tablet.sa 1 TAB PO Q12H for 30 Days, #60 TAB LOOK-ALIKE SOUND-ALIKE DRUG buSPIRone & buPROPion Diclofenac Sodium (Voltaren) 100 Gm Gel..gram. 2 GM TOP Q6H Docusate Sodium (Col-Rite) 100 Mg Capsule 1 CAPSULE PO DAILY Gabapentin (Gabapentin) 300 Mg Capsule 1 CAP PO TID, #90 CAP Hydrocodone Bit/Acetaminophen (Hydrocodon-Acetaminophen 5-325) 5 Mg-325 Mg Tablet 1 TAB PO Q4H PRN for pain for 5 Days, #10 TAB Insulin Aspart (Novolog) 100 Unit/Ml (3 Ml) Insuln.pen 100 UNIT SQ, UNIT Insulin Glargine,Hum.rec.anlog (Lantus) 100 Unit/1 Ml Vial SQ BID Lidocaine (Lidocaine Pain Relief) 4 % Adh..patch 1 PATCH TOP DAILY for 30 Days, #30 PATCH 0 Refills Magnesium Oxide (Magnesium Oxide) 400 Mg Tablet 1 TAB PO Q12H for 30 Days, #60 TAB Metformin HCl (Metformin HCl) 1,000 Mg Tablet 1 TAB PO Q12H for 30 Days, #60 TAB Nitroglycerin (Nitroglycerin) 0.4 Mg Tab.subl 0.4 MG SL PRN PRN for chest pain [place]-3 Fatty Acids/Fish Oil (Fish Oil 1,000 mg Capsule) 1 Each Capsule 1 CAP PO DAILY Omeprazole (Omeprazole) 20 Mg Tablet.dr 40 MG PO DAILY for 30 Days, #30 TAB Ropinirole Hcl (Ropinirole Hcl) 0.5 Mg Tablet 1 TAB PO HS for 30 Days, #30 TAB 0 Refills Semaglutide (Ozempic) 1 Mg/0.75 Ml (4 Mg/3 Ml) Pen.injctr 1 MG SUBCUT Q7D for 30 Days, #3 ML 0 Refills Tiotropium Br/Olodaterol HCl (Stiolto Respimat Inhal [place]) 4 Gm Mist.inhal 2 PUFFS IH DAILY Vitamin B Complex (B Complex) 1 Each Tablet 1 EACH PO DAILY, TAB Discontinued Medications: Amlodipine Besylate (Amlodipine Besylate) 10 Mg Tablet 1 TAB PO QPM for 30 Days, #30 TAB 0 Refills Chlorthalidone (Chlorthalidone) 25 Mg Tablet 1 TAB PO BID for 30 Days, #30 TAB 0 Refills Dabigatran (PRADAXA capsule) 150 Mg Capsule 1 CAP PO BID, CAP Furosemide (Lasix) 20 Mg Tablet 20 MG PO, TAB Losartan Potassium* (Cozaar*) 25 Mg Tablet 4 TAB PO DAILY for 30 Days, #30 TAB Discharge Summary: A 74-year-old male with multiple comorbidities including atrial fibrillation (on dabigatran), chronic compensated heart failure with preserved ejection fraction, pulmonary hypertension, CKD stage IIIA, diabetes mellitus type 2, COPD, and history of symptomatic bradycardia status post dual-chamber pacemaker placement (11/2024), was admitted for evaluation and management of intractable lower back pain and recent significant weight loss. Initial evaluation revealed diffuse osteoblastic/sclerotic lesions on CT lumbar spine and abdomen/pelvis, with findings highly suggestive of metastatic disease, most likely of prostate origin given the markedly elevated PSA of 348 ng/mL and elevated alkaline phosphatase (744 U/L) with normal GGT. CT chest showed innumerable sclerotic lesions throughout the skeleton, further supporting metastatic involvement. Neurosurgery (Dr. Thomas Downs) was consulted and found no acute surgical indication as the patient had no new neurological deficits and no evidence of spinal cord compression or cauda equina syndrome. An outpatient bone biopsy by Interventional Radiology (IR) and oncology evaluation at [facility] were recommended. Oncology (Dr. Warren, [facility]) concurred with the plan for biopsy to confirm histologic diagnosis and guide treatment. During hospitalization, the patient was found to have bicytopenia (anemia and thrombocytopenia), likely secondary to bone marrow infiltration from metastatic disease. Peripheral smear and pathology reports demonstrated normocytic normochromic anemia with nucleated RBCs, moderate thrombocytopenia, and left granulocytic shift, consistent with a leukoerythroblastic reaction. Differential diagnoses included marrow infiltration, myelodysplastic process, or marrow stress response. Direct Leti test was negative, LDH elevated, reticulocyte count increased, and DIC ruled out given normal fibrinogen (710) and stable coagulation parameters. Patient was recommended outpatient bone marrow biopsy, scheduled for January 19, 2025, at [facility]. Infectious workup including blood cultures (negative x2), urinalysis (negative), and procalcitonin mildly elevated but trending down (0.73 - 0.63) showed no evidence of infection. ID (Dr. Monaco) recommended discontinuation of Zosyn, as infection was considered unlikely. CT abdomen/pelvis incidentally revealed cholelithiasis and large stool burden without evidence of cholecystitis. HIDA scan confirmed normal gallbladder function. The patients constipation was man aged with Dulcolax suppository, Senna, and Miralax with good relief. The patients pain regimen was optimized with morphine for severe pain, [place] for moderate pain, and lidocaine patches with diclofenac gel for adjunctive control, achieving satisfactory symptom relief. His hemodynamics remained soft, leading to holding of amlodipine, losartan, chlorthalidone, and furosemide during admission. He was advised to monitor blood pressure at home and resume antihypertensives under PCP supervision when systolic BP exceeds 140 mmHg and clinically appropriate. Dabigatran was held in preparation for the upcoming bone marrow and prostate biopsies to minimize bleeding risk. The patient and his family were educated regarding the importance of withholding anticoagulation and close follow-up with his primary physician for re-initiation post-procedure. His blood glucose was managed with Lantus 20 units nightly and correctional insulin, with metformin and semaglutide held during hospitalization. CKD remained stable with baseline creatinine around 1.3 mg/dL. Heart failure remained compensated with no evidence of fluid overload. COPD was stable on inhalers, and oxygen saturation remained >93% on room air. The patient remained neurologically stable, with no new deficits. He was counseled extensively regarding the likelihood of metastatic prostate cancer and the need for outpatient diagnostic confirmation and oncologic treatment planning. He will follow up with [facility] on 01/15/2025 for further management, prostate and vertebral lesion biopsy by Interventional Radiology outpatient, and bone marrow biopsy is scheduled for 01/19/2025 at [facility]. At discharge, the patient was afebrile, hemodynamically stable, pain was controlled, and he was ambulating with assistance. Detailed discharge instructions and follow-up appointments were reviewed and provided. Physical examination today: General: Awake, oriented to person, place and time, in mild pain (improved in comparison to admission) HEENT: Conjunctive are pale, sclerae clear, no icterus, pupil is equal in both sides, reactive to light, no ear discharge, no pharyngeal erythema or an edema. Neck: Supple, no JVD, no lymphadenopathy and thyromegaly. Chest: Equal air entry on both lungs, no additional sounds no rhonchi no wheezing at the moment. Cardiovascular: S1-S2 regular sinus rhythm and, regular rate, no gallops, no rubs, no murmurs Abdomen: No visible peristalsis, Bowel sounds present on auscultation, soft, no tenderness, no guarding, no rigidity. Extremities: Accidental amputation of right hand, accidental short left hand ring finger, chronic venous stasis bilateral extremities, hallux valgus noted in bilateral lower toes, no pitting edema bilaterally, capillary refill intact, peripheral pulsations are intact on both sides Neurologic: Mental status: alert and conscious, oriented to place, person and time, preserved memory, normal speech. Cranial nerves I-XII: Normal. Motor system: coordination intact, severely decreased strength in lower extremities 2/5, left upper extremity strength 4/5, right upper extremity strength 2/5 (recent fall on right shoulder) Sensory system: Decreased temperature, pain sensation in bilateral lower extremities. Pressure sensation intact Diminished deep tendon reflexes in biceps, triceps, quadriceps. Negative Babinski. Cerebellar: No nystagmus, dysdiadochokinesia, normal [id number] testing. Musculoskeletal: Severe back pain, tenderness present Skin: Warm and dry. Dry oral mucosa. Imagin. CT Lumbar Spine Findings: Diffuse osseous metastatic disease. No acute or pathologic fractures. Disc protrusions at L3-4 and L4-5. 2 CT Abdomen and Pelvis Findings: Diffuse osteoblastic metastases in axial and appendicular skeleton. Retroperitoneal lymphadenopathy (up to 1.8 cm). Large stool burden throughout colon. Cholelithiasis with distended gallbladder. Atherosclerotic changes noted. 3 CT Chest Findings: Innumerable sclerotic lesions compatible with metastatic disease. No acute or suspicious intrathoracic findings. 4 HIDA Scan Findings: Unremarkable hepatobiliary study, no evidence of acute cholecystitis. 5Right shoulder X-ray: Post-fall; no acute fracture or dislocation; subacute to chronic posterior right 5th rib fracture. [facility] Laboratory Findings Tumor Markers: PSA: 348 ng/mL (markedly elevated) ALP: 744 U/L (elevated, GGT normal) CEA: 13.4 ng/mL CA 19-9: 36 U/mL Hematology: Hgb: 8.9 , 8.2 g/dL Platelets: 59K 50K WBC: Normal range, with 21% bands Reticulocyte count: 3.2%, absolute 97,300 LDH: Elevated Direct Leti: Negative Fibrinogen: 710 mg/dL (elevated) D-dimer: Elevated HIT antibody: Positive (YONG confirmed) Chemistry / Organ Function: Creatinine: 1.3 mg/dL (baseline) BUN: Stable Electrolytes: Within normal limits LFTs: Normal except elevated ALP 774 GGT: Normal Infectious / Inflammatory: Procalcitonin: 0.73 0.63 ng/mL (down-trending) CRP / ESR: Elevated UA: Negative Blood cultures: No growth 2 Serologies: HIV 1 & 2: Negative HBV / HCV: Negative Heparin induced platelet antibody YONG: Positive 1.97 Laboratory Tests Test 01/12/25 19:56 01/13/25 05:10 01/13/25 07:04 01/13/25 12:19 Glucometer 207 mg/dl 152 mg/dl 229 mg/dl White Blood Count 8.1 X10'3 Red Blood Count 2.93 X10'6 Hemoglobin 8.1 g/dl Hematocrit 24.3 % Mean Corpuscular Volume 82.9 FL Mean Corpuscular Hemoglobin 27.7 PG Mean Corpuscular Hemoglobin Concent 33.4 g/dL Red Cell Distribution Width 21.6 % Platelet Count 49 X10'3 Mean Platelet Volume 8.2 FL Neutrophils (%) (Auto) 69.5 % Lymphocytes (%) (Auto) 18.2 % Monocytes (%) (Auto) 9.2 % Eosinophils (%) (Auto) 1.7 % Basophils (%) (Auto) 1.4 % Neutrophils # (Auto) 5.6 X10'3 Lymphocytes # (Auto) 1.5 X10'3 Monocytes # (Auto) 0.7 X10'3 Eosinophils # (Auto) 0.1 X10'3 Basophils # (Auto) 0.1 X10'3 CBC Comment Differential Total Cells Counted 100 Neutrophils % (Manual) 54.0 % Band Neutrophils % 15.0 % Lymphocytes % (Manual) 11.0 % Monocytes % (Manual) 6.0 % Eosinophils % (Manual) 4.0 % Metamyelocytes % 7.0 % Myelocytes % 3.0 % Nucleated Red Blood Cells 8 /100WBC Platelet Estimate Decreased Red Blood Cell Morphology Perf Polychromasia 2+ Basophilic Stippling Tear Drop Cells Few Elliptocytes Few Sodium Level 138 MMOL/L Potassium Level 3.9 MMOL/L Chloride Level 101 MMOL/L Carbon Dioxide Level 29.6 MMOL/L Anion Gap 7 Blood Urea Nitrogen 28 MG/DL Creatinine 1.26 MG/DL Estimated GFR/1.73 m2 56 ML/MIN BUN/Creatinine Ratio 22.2 Glucose Level 148 MG/DL Calcium Level 8.0 MG/DL Magnesium Level 2.6 MG/DL Total Bilirubin 0.7 MG/DL Aspartate Amino Transf (AST/SGOT) 87 U/L Alanine Aminotransferase (ALT/SGPT) 29 U/L Alkaline Phosphatase 590 IU/L Total Protein 6.8 G/DL Albumin 2.2 G/DL Globulin 4.6 G/DL Albumin/Globulin Ratio 0.5 CA 19-9 Antigen 36 U/mL Procalcitonin 0.56 NG/ML Chemistry Comments Test 01/13/25 17:36 01/13/25 19:41 01/14/25 05:24 01/14/25 08:07 Glucometer 257 mg/dl 224 mg/dl 154 mg/dl White Blood Count 7.5 X10'3 Red Blood Count 2.78 X10'6 Hemoglobin 7.7 g/dl Hematocrit 23.0 % Mean Corpuscular Volume 82.8 FL Mean Corpuscular Hemoglobin 27.7 PG Mean Corpuscular Hemoglobin Concent 33.5 g/dL Red Cell Distribution Width 21.3 % Platelet Count 45 X10'3 Mean Platelet Volume 8.3 FL Neutrophils (%) (Auto) 69.8 % Lymphocytes (%) (Auto) 19.0 % Monocytes (%) (Auto) 8.4 % Eosinophils (%) (Auto) 1.8 % Basophils (%) (Auto) 1.0 % Neutrophils # (Auto) 5.3 X10'3 Lymphocytes # (Auto) 1.4 X10'3 Monocytes # (Auto) 0.6 X10'3 Eosinophils # (Auto) 0.1 X10'3 Basophils # (Auto) 0.1 X10'3 CBC Comment Differential Total Cells Counted 100 Neutrophils % (Manual) 49.0 % Band Neutrophils % 14.0 % Lymphocytes % (Manual) 15.0 % Monocytes % (Manual) 11.0 % Eosinophils % (Manual) 4.0 % Metamyelocytes % 7.0 % Nucleated Red Blood Cells 1 /100WBC Platelet Estimate Decreased Red Blood Cell Morphology Perf Polychromasia Few Hypochromasia 1+ Basophilic Stippling Anisocytosis 3+ Sodium Level 138 MMOL/L Potassium Level 3.9 MMOL/L Chloride Level 100 MMOL/L Carbon Dioxide Level 29.8 MMOL/L Anion Gap 8 Blood Urea Nitrogen 30 MG/DL Creatinine 1.10 MG/DL Estimated GFR/1.73 m2 65 ML/MIN BUN/Creatinine Ratio 27.3 Glucose Level 160 MG/DL Calcium Level 8.1 MG/DL Total Bilirubin 0.5 MG/DL Aspartate Amino Transf (AST/SGOT) 73 U/L Alanine Aminotransferase (ALT/SGPT) 26 U/L Alkaline Phosphatase 548 IU/L Total Protein 6.5 G/DL Albumin 2.2 G/DL Globulin 4.3 G/DL Albumin/Globulin Ratio 0.5 Procalcitonin 0.35 NG/ML Chemistry Comments Test 01/14/25 13:07 Glucometer 191 mg/dl Advice on discharge: - Outpatient appointment at [facility] tomorrow 01/15 at 0930. - Will follow up with an possible outpatient bone and prostate biopsy by Interventional Radiology next week. - Bone marrow biopsy outpatient at [facility] on Sunday, January 19, 2025, at 2:30 p.m., contact information [phone]; please reach out to [facility], [place] Address: [address] [place] [phone] - please continue medications as prescribed - please follow up with PCP in three days for additional prescription for your pain medications - held your home medications, amlodipine, furosemide , losartan and chlorthalidone due to low blood pressures during the hospital stay; please monitor blood pressures at home and follow with PCP for initiation of antihypertensive medications - also held your blood thinner dabigatran, as you are scheduled for bone marrow biopsy on January 19 and possible prostate, Bone biopsy by IR next week; hence held your blood thinner to avoid the risk of bleeding; please follow up with your PCP regarding re-initiation of anticoagulation - call 911/go to the nearby ED if any emergency - please do not miss your appointment with bone marrow biopsy, [facility] and biopsy by Interventional Radiology (IR). *Problems/Diagnosis: (1) Prostate carcinoma (2) Intractable low back pain Status: Acute Total Time Spent on D/C: > 30 Minutes Date of Service: Jan 14, 2025 Billing Provider: EDMOND STEELE MD, GAURAV, RES Jan 14, 2025 17:45
--- NOTE | 2025-01-15 14:39 | CONSULTATION REPORT ---
History of Present Illness Providers to CC ~ Reason for Admit\Admit Dx: Intractable low back pain Refering MD: [facility] Dr. Daugherty History of Present Illness A 74-year-old with a medical history that includes a permanent pacemaker placement for bradycardia, atrial fibrillation, congestive heart failure, diabetes mellitus type 2, and chronic back pain presented to the emergency department (ED) with chief complaints of excruciating back pain, which has been aggravated for the last two weeks. The patient typically visits the [facility] chiropractor for his low back pain, and during his appointment today, they advised him to go to the ED due to concerns that he may be experiencing cauda equina syndrome. The patient reported that he has been unable to walk and has relied on a walker for the past two weeks. He has also found it difficult to ambulate to the restroom due to severe pain in his back, which radiates to both of his low extremities. As a result of this pain, he has been using adult diapers for the last two weeks. 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 He also mentioned that he has lost a few pounds over the last two months but is unsure of the exact amount. In the ED, Dr. Peña admitted the patient for evaluation of elevated alkaline phosphatase levels and possible cauda equina syndrome. He consulted neurosurgery for these symtomps. There was some difficulty completing MRI due to the pacemaker but eventually the MRI was completed. Allergies: Coded Allergies: lisinopril (Verified Allergy, Unknown, Coughing, 01/09/25) lorazepam (Unverified Allergy, Unknown, 01/09/25) Home Medications Home Medications Active Morphine Tab* (Morphine Sulfate) 30 Mg Tablet 1 Tab PO TID PRN PRN 5 Days Reported Berberine (Berberine Chloride) 500 Mg Capsule Ozempic (Semaglutide) 1 Mg/0.75 Ml (4 Mg/3 Ml) Pen.injctr 1 Mg SUBCUT Q7D 30 Days Ropinirole Hcl 0.5 Mg Tablet 1 Tab PO HS 30 Days Lidocaine Pain Relief (Lidocaine) 4 % Adh..patch 1 Patch TOP DAILY 30 Days Novolog (Insulin Aspart) 100 Unit/Ml (3 Ml) Insuln.pen 100 Unit SQ Hydrocodon-Acetaminophen 5-325 (Hydrocodone Bit/Acetaminophen) 5 Mg-325 Mg Tablet 1 Tab PO Q4H PRN 5 Days Wellbutrin SR* (Bupropion HCl) 150 Mg Tablet.sa 1 Tab PO Q12H 30 Days LOOK-ALIKE SOUND-ALIKE DRUG buSPIRone & buPROPion Pro-Air Inhaler (Albuterol) 8.5 Gm Inhaler 2 Puffs INH Q6H PRN 30 Days Voltaren (Diclofenac Sodium) 100 Gm Gel..gram. 2 Gm TOP Q6H Nitroglycerin 0.4 Mg Tab.subl 0.4 Mg SL PRN PRN Lantus (Insulin Glargine,Hum.rec.anlog) 100 Unit/1 Ml Vial SQ BID Stiolto Respimat Inhal Rolfe (Tiotropium Br/Olodaterol HCl) 4 Gm Mist.inhal 2 Puffs IH DAILY Col-Rite (Docusate Sodium) 100 Mg Capsule 1 Capsule PO DAILY Lipitor* (Atorvastatin Calcium) 20 Mg Tablet 2 Tablet PO HS Metformin HCl 1,000 Mg Tablet 1 Tab PO Q12H 30 Days Omeprazole 20 Mg Tablet.dr 40 Mg PO DAILY 30 Days Magnesium Oxide 400 Mg Tablet 1 Tab PO Q12H 30 Days Gabapentin 300 Mg Capsule 1 Cap PO TID B Complex (Vitamin B Complex) 1 Each Tablet 1 Each PO DAILY Fish Oil 1,000 mg Capsule ([place]-3 Fatty Acids/Fish Oil) 1 Each Capsule 1 Cap PO DAILY Amitriptyline Hcl (Amitriptyline HCl) 25 Mg Tablet 12.5 Mg PO HS Past Medical History Medical History Comment Bradycardia this post dual-chamber pacemaker on 11/26/2024 Chronic low back pain hypertension CAD Hyperlipidemia Chronic congestive heart failure with hyperdynamic ejection fraction Diabetes mellitus type 2 achsius Chronic kidney disease Past Surgical History Surgical History Comment bilateral shoulder replacements Hernia repair Past Family History Family History Comment Cancer sister and brother Family History: FH: cancer sister brother Past Social History Social History Comment Social History Comment Patient used to smoke a pack of cigarettes for almost 40 years, quit smoking 10 years ago Occasional alcohol use Denies any other illicit drug use Alcohol Use: None Drug Use: None Lives In: Home Occupation: retired ROS All Other Systems: Reviewed Physical Exam Last Vital Signs Recorded: Temperature: 97.6, Source: Oral, Heart Rate: 63, Respiratory Rate: 16, BP: 96/46, Pulse Oximetry: 95, Weight: 87.700 General Appearance General: Awake, onented to person, place and time, in extreme excruciating pain HEENT: Conjunctive are pale, sclerae clear, no icterus, pupil is equal in both sides, reactive to light, no ear discharge, no pharyngeal erythema or an edema. Neck: Supple, no JVD, no lymphadenopathy and thyromegaly. Chest: Equal air entry on both lungs, no additional sounds no rhonchi no wheezing at the moment. Cardiovascular: S1-S2 regular sinus rhythm and, regular rate, no gallops, no rubs, no murmurs Abdomen: No visible peristalsis, Bowel sounds present on auscultation, soft, no tenderness, no guarding, no rigidity. Apple shape body habitus Extremities: Accidental amputation of right hand, accidental short left hand ring finger, chronic venous stasis bilateral extremities, hallux valgus noted in bilateral lower toes, no pitting edema bilaterally. capillary refill intact, peripheral pulsations are intact on both sides Neurologic: Mental status: alert and conscious, oriented to place, person and time, preserved memory, normal speech. [email or web address] Cranial nerves I-XII: Normal. Motor system: Mild tremors noted in upper extremities, coordination intact, severely decreased strength in lower extremities 0/5 proximal on the left 3/5 on the right and distal RLE., left upper extremity strength 4/5, right upper extremity strength 4/5 (recent fall on right shoulder) Sensory system: Decreased temperature, pain sensation in bilateral lower extremities Pressure sensation intact Callin Calre Diminished deep tendon reflexes in biceps, triceps, quadriceps. Negative Babinski. Cerebellar: No nystagmus, dysdiadochokinesia, normal [id number] testing. Musculoskeletal: Severe back pain Skin: Warm and dry. Dry oral mucosa. Review of Systems ROS ROS Comments: ROS All Other Systems: Reviewed and Negative adame aphslus Constitutional: No fever, dizziness, noted weakness, decrease in appetite HEENT: Normal vision. No sore throat, epistaxis, tinnitus Cardiovascular: No chest pain/discomfort, palpitations, syncope. no pedal edema Respiratory: No sob, cough,hemoptysis Gastrointestinal: No abdominal pain, nausea, vomiting. No diarrhea, melena Genitourinary: No frquency, urgency, incontinence, nocturia. No dysuria, hematuria Musculoskeletal: Excruciating back pain Endocrine: No fatigue, polydipsia, polyuria. No heat or cold intolerance Results Diagram Lab Result Diagram: 01/14/2552301/14/25523 Assessment/Plan Problems/Diagnosis: (1) Disc disease, degenerative, lumbar or lumbosacral (2) Intractable low back pain (3) Prostate carcinoma Assessment & Plan: This is a very pleasant gentleman with history of progressive lower back pain and some degree of lower extremikties weakness for several months. He denies bladder control problems but apparently he does have urinary incontinence. On exam he has severe weakness proximal on ileopsoas on the right lower extremity and mild generalized weakness on all other muscle groups. He can stand and walk with a wal;ker. rflexes are decrease on lower extremities., He has neuropathic pattern decrease sensation in lower and upper extremities most likely due to diabetes. CT ches and abdomenm failed to demonstrate lesions on organs but there is a 1.8 cm retroperitoneal pathological lymph node. MRI T and L spine showed multiple bone masses consistent with metastaic disease. There is no extension into the spinal canal. There is chronic severe lumbar spinal stenosis and compression of the distal dural sack. At this tyime the most important step is to perform biopsy of one of the vertebral body lesions to establish his diagnosis. Oncology referrral for further work up of metastatic disease, establish primary diagnosis and decide further evaluation and treatment. Consider referral for IR bioppsy of vertebral lesions or bone marrow biopsy. I can see him as outpatient once his oncology problems is stable to decide treatment foir spinal stenosis Problem Qualifiers (1) Disc disease, degenerative, lumbar or lumbosacral: Qualified Codes: M51.370 - Other intervertebral disc degeneration, lumbosacral region with discogenic back pain only YOANA CHOI MD Jan 15, 2025 14:39
== END 2025-01-14 15:40 | disposition home or self-care (01) | DRG 872 ==
LOC: ER 11:06 → ED HOLD 20:26 → ORTHO 4S 23:33
PROVIDERS: ADMIT Internal Medicine Pulmonary Disease; ATTEND Family Medicine
PROC: CF1YYZZ Planar Nuclear Medicine Imaging of Hepatobiliary System and Pancreas using Other Radionuclide (ICD-10-PCS; principal; 2025-01-12)
DX: A41.9 Sepsis, unspecified organism (principal); C79.51 Secondary malignant neoplasm of bone; I50.32 Chronic diastolic (congestive) heart failure; I13.0 Hypertensive heart and chronic kidney disease with heart failure and stage 1 through stage 4 chronic kidney disease, or unspecified chronic kidney disease; I48.20 Chronic atrial fibrillation, unspecified; C61 Malignant neoplasm of prostate; N18.31 Chronic kidney disease, stage 3a; E78.5 Hyperlipidemia, unspecified; J44.9 Chronic obstructive pulmonary disease, unspecified; G89.29 Other chronic pain; E11.42 Type 2 diabetes mellitus with diabetic polyneuropathy; I87.8 Other specified disorders of veins; K59.00 Constipation, unspecified; G47.33 Obstructive sleep apnea (adult) (pediatric); E11.22 Type 2 diabetes mellitus with diabetic chronic kidney disease; D75.82 Heparin induced thrombocytopenia (HIT); M51.26 Other intervertebral disc displacement, lumbar region; M51.370 Other intervertebral disc degeneration, lumbosacral region with discogenic back pain only; I25.10 Atherosclerotic heart disease of native coronary artery without angina pectoris; Z96.612 Presence of left artificial shoulder joint; Z96.611 Presence of right artificial shoulder joint; Z88.8 Allergy status to other drugs, medicaments and biological substances; Z79.4 Long term (current) use of insulin; Z79.899 Other long term (current) drug therapy; Z95.0 Presence of cardiac pacemaker; Z87.891 Personal history of nicotine dependence
CPT/HCPCS: 36415; 71045; 71250; 72100; 72131; 72146; 72148; 73030; 74176; 78226; 80053; 81001; 82248; 82378; 82607; 82948; 82977; 83010; 83540; 83550; 83605; 83615; 83690; 83735; 83970; 84145; 84153; 84154; 84443; 84484; 85007; 85025; 85045; 85379; 85384; 85610; 85651; 85730; 85999; 86022; 86140; 86301; 86703; 86705; 86803; 86880; 87040; 87081; 87522; 94760; 96374; 96376; 97161; 97530; 99285; A4615; A6258; A6449; A6590; A9537; G0378; J0169; J0282; J0696; J1171; J1644; J1815; J2270; J2543

== ENCOUNTER 2025-02-18 11:42 | Emergency (ER) | payer OTHER, MEDICARE ==
[~2025-02-18] VITALS: Ht 182.9 cm; Wt 62.0 kg
[~2025-02-18 11:42] MED LIST changes: -AMLO10TA53 PO; +BERB500C; -CEPH-585 PO; -CHLO25TA10 PO; -DABI150C PO; +EMPA1TAB7 PO; -FURO20TA4 PO; -HYDR71PA TP; -KEN0.1O TOP; -LOSA-415 PO
--- NOTE | 2025-02-18 12:23 | RADIOLOGY REPORT ---
EXAM: CT CT STROKE ALERT INDICATION: Stroke-like symptoms TECHNIQUE: CT images of the head were obtained without administration of IV contrast. CT scans at this facility use dose modulation, iterative reconstruction, and/or weight based dosing when appropriate to reduce radiation dose to as low as reasonably achievable. COMPARISON: None FINDINGS: PARENCHYMA: Significant mass effect of the left frontal convexity secondary to mixed density extra-axial fluid collection. Associated left-sided sulcal effacement. Mild scattered hypoattenuation along the periventricular, centrum semiovale, and deep white matter tracts, which are nonspecific however s tatistically most likely represent chronic microvascular ischemic change. VENTRICLES: No hydrocephalus. Effacement of the left lateral ventricle without evidence of entrapment. Slight asymmetric dilation of the right occipital horn without dilation of the temporal horn. EXTRA-AXIAL SPACES: Significant left frontal temporal convexity extra-axial fluid collection with significant mass effect measuring up to 3 cm in width. Associated mixed density subsequent rightward midline shift measuring up to 1.5 cm. Consider surgical consultation. OTHER: The bony structures are intact. IMPRESSION: 1. Significant left frontal temporal convexity extra-axial fluid collection with significant mass effect measuring up to 3 cm in width. 2. Associated mixed density subsequent rightward midline shift measuring up to 1.5 cm. 3. Consider surgical consultation. 4. No hydrocephalus.
--- NOTE | 2025-02-18 12:33 | Physician Documentation ---
History of Present Illness ~ Chief Complaint: Stroke Alert Stated Complaint: STROKE LIKE SYMPTOMS Time Seen by MD: 12:03 Primary Medical Doctor: [facility] Dr. Willow RODRIGUEZ This is a 74-year-old male with a history of pacemaker placement on November 27 post which he had a fall two days later and landed on the right side. Patient is slow to follow commands and is a poor historian. Family is at the bedside were not sure if he ever had a CT scan after the fall. His noticed difficulty breathing, significant weakness on the right side yesterday. Patient was transferred to [facility] from [facility] two weeks ago and was discharged home to [place] yesterday. Patient has significant weakness on the right upper extremity and lower extremity. He is able to protect his airway for now. GCS 13. Currently not on blood thinners and family is unsure about any recent trauma/fall yesterday or today but endorsed possible shaking of head during multiple transfers. Medication Reconciliation Allergies: Coded Allergies: lisinopril (Verified Allergy, Unknown, Coughing, 02/18/25) lorazepam (Unverified Allergy, Unknown, 02/18/25) midazolam (Verified Adverse Reaction, Unknown, 02/18/25) Scheduled Amitriptyline Hcl (Amitriptyline Hcl), 12.5 MG PO HS, (Reported) Atorvastatin Calcium* (Lipitor*), 2 TABLET PO HS, (Reported) Bupropion Hcl SR* (Wellbutrin SR*), 1 TAB PO Q12H, (Reported) Diclofenac Sodium (Voltaren), 2 GM TOP Q6H, (Reported) Docusate Sodium (Col-Rite), 1 CAPSULE PO DAILY, (Reported) Empagliflozin/Metformin HCl (Synjardy 12.5-1,000 mg Tablet), 2 TABLET PO DAILY, (Reported) Gabapentin (Gabapentin), 1 CAP PO TID, (Reported) Insulin Glargine,Hum.rec.anlog (Lantus), SQ BID, (Reported) Lidocaine (Lidocaine Pain Relief), 1 PATCH TOP DAILY, (Reported) Magnesium Oxide (Magnesium Oxide), 1 TAB PO Q12H, (Reported) Metformin HCl (Metformin HCl), 1 TAB PO Q12H, (Reported) [place]-3 Fatty Acids/Fish Oil (Fish Oil 1,000 mg Capsule), 1 CAP PO DAILY, (Reported) Omeprazole (Omeprazole), 40 MG PO DAILY, (Reported) Ropinirole Hcl (Ropinirole Hcl), 1 TAB PO HS, (Reported) Semaglutide (Ozempic), 1 MG SUBCUT Q7D, (Reported) Tiotropium Br/Olodaterol HCl (Stiolto Respimat Inhal [place]), 2 PUFFS IH DAILY, (Reported) Vitamin B Complex (B Complex), 1 EACH PO DAILY, (Reported) Scheduled PRN Hydrocodone Bit/Acetaminophen (Hydrocodon-Acetaminophen 5-325), 1 TAB PO Q4H PRN for pain, (Reported) Nitroglycerin (Nitroglycerin), 0.4 MG SL PRN PRN for chest pain, (Reported) albuterol inhaler (Pro-Air Inhaler), 2 PUFFS INH Q6H PRN for wheezing, (Reported) Miscellaneous Medications Berberine Chloride (Berberine), (Reported) Insulin Aspart (Novolog), 100 UNIT SQ, (Reported) Past Medical History Past Medical History: Atrial Fibrillation, Congestive Heart Failure, Hypertension, COPD, Chronic Back Pain Past Surgical History: noncontributory Patient History: FH: cancer sister brother Alcohol Use: None Drug Use: none Lives with: Spouse Lives In: Home Occupation: retired Review of Systems ROS Unable to obtain because of patient's confusion. Physical Exam Vital Signs: Temperature: 98.5, Source: Oral, Heart Rate: 57, Respiratory Rate: 14, BP: 104/64, Pulse Oximetry: 94, Weight: 62.000 Oxygen Flow Rate: 0 Physical Exam General: Opens eyes spontaneously, in mild acute distress while breathing HEENT: Conjunctiva pink, Sclera clear, Mucus Membranes moist Neck: Supple without masses and tenderness. Resp: Labored breathing with a equal breath sounds bilaterally. Accessory muscle use present. Heart: Regular rhythm, normal S1 and S2, no rub, murmur or gallop, muffled heart sounds. Abdomen: Soft and non tender no organomegaly. Normal bowel sounds x4 quadrant normoactive. No guarding or rigidity. Extremities: Normal ROM, no swelling, nontender. No cyanosis,clubbing or edema. SHAREPOINT ARCHITECT: Power 1/5 in right upper extremity and lower extremity and 4/5 in the left upper and lower extremities. Cranial nerve examination is normal except for right-sided facial weakness. Skin: Warm and Dry. Progress Results/Orders Results/Orders Orders - OHLFS,ALIS Hawkins MD Pt Inr (02/18/25 12:27) Procalcitonin (02/18/25 12:27) Hs Troponin I W Calculations (02/18/25 12:27) PBNP (02/18/25 12:27) Lacticsepsis (02/18/25 12:31) Vital Signs 02/18/25 11:44 Temp 98.5 Pulse 57 Resp 14 B/P (MAP) 104/64 Pulse Ox 94 O2 Flow Rate 0 Laboratory Tests Test 02/18/25 12:37 02/18/25 12:43 White Blood Count 8.7 Red Blood Count 2.94 L Hemoglobin 8.6 L Hematocrit 25.8 L Mean Corpuscular Volume 87.9 Mean Corpuscular Hemoglobin 29.1 Mean Corpuscular Hemoglobin Concent 33.1 Red Cell Distribution Width 22.7 H Platelet Count 50 *L Mean Platelet Volume 8.2 Neutrophils (%) (Auto) 67.1 Lymphocytes (%) (Auto) 15.9 L Monocytes (%) (Auto) 14.0 H Eosinophils (%) (Auto) 1.7 Basophils (%) (Auto) 1.3 H Neutrophils # (Auto) 5.9 Lymphocytes # (Auto) 1.4 Monocytes # (Auto) 1.2 H Eosinophils # (Auto) 0.2 Basophils # (Auto) 0.1 CBC Comment Chemistry Comments Coagulation Comments EKG/XRAY/CT/US/VASC/MRI Chest X-Ray : Additional Comments Patient: TERRA TONY Medical Record: [id number] [facility] 1950, Age: 74 Sex: Male Location: ER Patient Status: REG ER Service Date/Time: 02/18/25 Ordering Physician: SAW JAY Exam: CHEST,SINGLE VIEW EXAM: DI CHEST,SINGLE VIEW Indication: sob Technique: Single frontal view of the chest was obtained Comparison: DI CHEST,SINGLE VIEW on DOS: 01/29/25, DI CHEST,SINGLE VIEW on DOS: 01/23/25, CT CT CHEST on DOS: 01/11/25, DI CHEST,SINGLE VIEW on DOS: 01/09/25, DI CHEST,SINGLE VIEW on DOS: 11/27/24 FINDINGS: Lines and Tubes: Cardiac pacemaker projects over left chest wall. Lungs: Diffuse interstitial opacities. Pleura: No effusion. No pneumothorax. Cardiomediastinal contours: Unremarkable Bones: Diffuse sclerotic appearance of the osseous structures. IMPRESSION: Diffuse sclerotic appearance of the osseous structures. Diffuse interstitial opacities. Electronically Signed by:SALBADOR DUNN MD Date & Time: 02/18/25 1232 Dictated by: SALBADOR DUNN MD Dictation date and time: 02/18/25 1217 Primary Care Provider: NO PRIMARY CARE PROVIDER cc: SAW JAY, RES ~ CT : Impression Patient: TERRA TONY Medical Record: [id number] [facility] 1950, Age: 74 Sex: Male Location: ER Patient Status: REG ER Service Date/Time: 02/18/251203 Ordering Physician: SAW JAY Exam: CT STROKE ALERT EXAM: CT CT STROKE ALERT INDICATION: Stroke-like symptoms TECHNIQUE: CT images of the head were obtained without administration of IV contrast. CT scans at this facility use dose modulation, iterative reconstruction, and/or weight based dosing when appropriate to reduce radiation dose to as low as reasonably achievable. COMPARISON: None FINDINGS: PARENCHYMA: Significant mass effect of the left frontal convexity secondary to mixed density extra-axial fluid collection. Associated left-sided sulcal effacement. Mild scattered hypoattenuation along the periventricular, centrum semiovale, and deep white matter tracts, which are nonspecific however statistically most likely represent chronic microvascular ischemic change. VENTRICLES: No hydrocephalus. Effacement of the left lateral ventricle without evidence of entrapment. Slight asymmetric dilation of the right occipital horn without dilation of the temporal horn. EXTRA-AXIAL SPACES: Significant left frontal temporal convexity extra-axial fluid collection with significant mass effect measuring up to 3 cm in width. Associated mixed density subsequent rightward midline shift measuring up to 1.5 cm. Consider surgical consultation. OTHER: The bony structures are intact. IMPRESSION: 1. Significant left frontal temporal convexity extra-axial fluid collection with significant mass effect measuring up to 3 cm in width. 2. Associated mixed density subsequent rightward midline shift measuring up to 1.5 cm. 3. Consider surgical consultation. 4. No hydrocephalus. Electronically Signed by:FABRIZIO SILVER MD Date & Time: 02/18/251219 Dictated by: FABRIZIO SILVER MD Dictation date and time: 02/18/25 122 Primary Care Provider: NO PRIMARY CARE PROVIDER cc: SAW JAY, RES ~ Medical Decision Making Additional information obtaine: old records, family, other Findings 74-year-old male sustained the head trauma of unknown duration, no specific inciting event, no previous CT scan to compare. Patient has had a progressive decline since last two weeks and worsening right-sided weakness. CT head showed Significant left frontal temporal convexity extra-axial fluid collection with significant mass effect measuring up to 3 cm in width. Associated mixed density subsequent rightward midline shift measuring up to 1.5 cm. Patient is currently not on any blood thinners, did not have any loss of consciousness or seizures. Critical value resulted for subdural hemorrhage, Neurosurgery was consulted and they accepted for the transfer. Chest x-ray showed cardiomegaly with mild congestion. Patient is currently on oxygen with accessory muscle use. Differential Dx:Considerations: Include: anemia, CVA, dehydration, dysrhythmia, electrolyte imbalance, encephalopathy, Guillain-[place], hypoglycemia, hypotension, hypovolemia, labyrinthitis, Meniere's disease, myasathenia gravis, myocardial infarction, pulmonary embolus, renal failure, respiratory failure, TIA, VBI, vertigo central, vertigo peripheral, vestibular neuronitis, other Departure Impression: Primary Impression: Subdural hemorrhage Additional Impression: Intracerebral hemorrhage Condition: Critical Referrals: NO PRIMARY CARE PROVIDER (PCP) Critical Care Note Total Time (mins): 50 Critical Care Note Very real possibility of deterioration of this patient's condition required the highest level of my preparedness for sudden emergent intervention. 60 minutes of critical care was provided to this patient with reviewing CT scan, decision making Additional Comment Seen with PA/COOK SOUP 74-year-old male hemiparesis on the right was found to have a large left subdural with midline shift the patient also [place] a [place] [id number] he is not on any blood thinners he has been in the past. The patient is able to maintain his airway and is following commands. The patient will be transferred to [facility] the patient has been accepted for transfer by Dr. Reyes, due to the expedited nature of the transfer we will not be giving him platelets here but he will be in need of additional platelets as he there was evidence of active bleeding. Signature Scribe Signature: No scribe Attestation: PGY2 resident attestation: Patient was seen and examined with attending physician Dr. aubrie Gibson MD PGY 2 internal medicine resident SAW JAY, RES Feb 18, 2025 12:33 ALIS HERNANDEZ MD Feb 18, 2025 12:57
--- NOTE | 2025-02-18 12:42 | [facility] CONSULT REPORT ---
[facility] Procedure Note [facility] Procedure Note Consult [facility] Note # Demographics Consult Type: Acute Stroke Level 2 (4.5-24 hrs) Patient Location: Emergency Room First Name: ANNE MARIE Last Name: CHAVO Date of : 1950 Age: 74 Gender: Male Facility: [facility] Time of Initial Page (): 02/18/2025 11:58 First Contact with Site (): 02/18/2025 11:58 # HPI Chief Complaint: - weakness (focal) History: 74-year-old male with a history of hospitalization at an OSH one week prior who presents with right-sided weakness and slurred speech that began approximately one week ago. According to his , these symptoms first started while he was at the OSH a week ago, but he was apparently not evaluated for stroke-related symptoms at that time. He was brought from [facility] to the current facility yesterday due to concerns about possible stroke given his ongoing right-sided weakness and speech difficulties. He demonstrates inability to lift his right arm or right leg, while he can follow directions to lift his left arm and left leg. # Scores Time of exam and NIHSS (): 02/18/2025 12:38 Level of Consciousness 1a: [0] = Alert; keenly responsive LOC Questions 1b: [0] = Answers both questions correctly LOC Commands 1c: [0] = Performs both tasks correctly Best Gaze 2: [0] = Normal Visual 3: [0] = No visual loss Facial Palsy 4: [0] = Normal symmetrical movements Motor Arm Left 5a: [0] = No drift Motor Arm Right 5b: [4] = No movement Motor Leg Left 6a: [0] = No drift Motor Leg Right 6b: [3] = No effort against gravity Limb Ataxia 7: [0] = Absent Sensory 8: [1] = Dstv-dy-elzpsffh sensory loss Best Language 9: [0] = No aphasia Dysarthria 10: [1] = Ndur-fj-esvrsszb dysarthria Extinction and Inattention 11: [0] = No abnormality NIHSS Total: 9 # Data Time Head CT personally read by me (): 02/18/2025 12:[address]: - hemorrhage - significant mass effect from mixed density extra-axial fluid collection within the left frontal convexity # Assessment Impression: - Subdural Hematoma - left SDH with significant mass effect. Needs neurosurgery consultation STAT # Plan Thrombolytic/Intervention: NOT IV Thrombolysis or IA Intervention candidate Intraarterial Exclusion: - clinical exam not consistent with presence of large vessel occlusion (LVO), can reconsider if LVO found on vascular imaging Thrombolytic/Intraarterial Exclusion: - IV thrombolytic and IA intervention considered but not recommended as this patient's symptoms are not clinically consistent with an assumed diagnosis of stroke Target Blood Pressure: - SBP 130-150 Imaging: (urgency: routine): - Can repeat head CT wo in 6-12 hours to look for any interval changes Medication: - Hold all anti-platelets and anti-coagulations DVT Prophylaxis: - SCD Other: - If patient has any neurological deterioration please call me back immediately - consult neurosurgery - I have discussed my recommendations with the referring provider Disposition: consider transfer to tertiary facility for higher level neurological care # Logistics Attestation of consult completion: The patient is located at: [facility]. Facility staff participated in the visit. I performed this t elemedicine visit from my offsite office utilizing interactive 2 way audio and visual telecommunication technology at the request of the onsite emergency room provider. Total time spent in telemedicine encounter: I spent 15 minutes reviewing clinical data and/or imaging, obtaining history, examining the patient, communicating with the onsite care team, and in preparation of this report. # Demographics First Name: ANNE MARIE Last Name: CHAVO Facility: [facility] Consult Order placed for: Yes MIKE BURTON MD Feb 18, 2025 12:42
[2025-02-18 12:53] LABS: MEAN PLATELET VOLUME 8.2 FL (7.4-10.4); RED CELL DISTRIBUTION WIDTH 22.7 % (11.5-14.5)
--- NOTE | 2025-02-18 13:01 | ELECTROCARDIOGRAPH REPORT ---
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
[2025-02-18 13:08] LABS: INR 1.2 INR
[2025-02-18 13:12] LABS: CREATININE 0.89 MG/DL (0.60-1.10); TOTAL CARBON DIOXIDE 25.8 MMOL/L (24-32); eCRCL 64 ML/MIN; eGFR 84 ML/MIN
[2025-02-18 13:18] VITALS: BP 102/58; PULSE 66; RESP 25; TEMP 98.5; O2SAT 96
[2025-02-18 13:20] LABS: PRO BRAIN NATRIURETIC PEPTIDE 4322 PG/ML (0-125)
[2025-02-18 13:43] LABS: BANDS% (MANUAL) 5.0 % (0-10); EOSINOPHILS % (MANUAL) 1.0 % (0-6); LYMPHOCYTES % (MANUAL) 14.0 % (21-51); METAMYLEOCYTES% (MANUAL) 5.0 % (0-0); MONOCYTES % (MANUAL) 17.0 % (2-12); NEUTROPHILS % (MANUAL) 58.0 % (42-75); NUCLEATED RED BLOOD CELLS 16 /100WBC (0-0); PLATELET ESTIMATE DECREASED
== END 2025-02-18 13:21 ==
LOC: ER 11:42
DX: I62.00 Nontraumatic subdural hemorrhage, unspecified (principal); I61.9 Nontraumatic intracerebral hemorrhage, unspecified; I11.0 Hypertensive heart disease with heart failure; I50.9 Heart failure, unspecified; G89.29 Other chronic pain; I48.91 Unspecified atrial fibrillation; J44.9 Chronic obstructive pulmonary disease, unspecified; Z88.8 Allergy status to other drugs, medicaments and biological substances; Z95.0 Presence of cardiac pacemaker; Z79.899 Other long term (current) drug therapy; Z79.84 Long term (current) use of oral hypoglycemic drugs
CPT/HCPCS: 36415; 70450; 71045; 80053; 83605; 83880; 84145; 84484; 85007; 85025; 85610; 93005; 99291; Q9967